=== PATIENT | female | born 1950 | race Caucasian/White ===

== ENCOUNTER → 2016-11-18 | Outpatient (CLI) | payer BC, OTHER ==
[~2016-11-18] MED LIST: ALBI1INJ2 INJ; ALBU1AER9 INH; ALPH100T PO; AMOX500C3 PO; AMR2 PO; ASPI81TA28 PO; BECL0.072 INH; BIOT1TAB5 PO; CHOL400C7 PO; CRAN450T3 PO; CZR25 PO; DICL1GEL12 TOP; DULA1INJ INJ; ESOM20CA PO; FERR1TAB13 PO; FEXO1TAB49 PO; FLUT0.15 NAE; FRS/40 PO; GLIP-197 PO; HYDR-3419 PO; IPRA0.03 NAE; IRON1CAP2 PO; L-ME1CAP3 PO; LOSA1TAB PO; LOSA1TAB38 PO; LOSA25TA18 PO; LOSA50TA6 PO; MELO7.5T5 PO; METO1TAB69 PO; METO25TA3 PO; METO50TA7 PO; MONT1TAB3 PO; MULT-240 PO; NTRGSL/4 UT; NTRTP TD; NXM/40 PO; QVRINH80 INH; RANITAB6 PO; SPR25 PO; SUCR1TAB29 PO; SYMIN160 INH
--- NOTE | 2016-11-19 12:44 | MAMMOGRAPHY REPORT ---
BILATERAL DIGITAL SCREENING MAMMOGRAM WITH CAD: 11/18/2016 CLINICAL HISTORY: Routine screening. Patient has no complaints. TECHNIQUE: Current study was also evaluated with a Computer Aided Detection (CAD) system. COMPARISON: Prior outside mammograms dated 11/11/2015 and 10/09/2014 from [facility]. BREAST COMPOSITION: There are scattered areas of fibroglandular density in both breasts. FINDINGS: No suspicious masses, calcifications, or areas of architectural distortion are noted in e ither breast. There has been no significant interval change compared to prior exams. Small 3 mm kaur ign-appearing mass in the right upper outer quadrant is stable compared to the MLO view from the 201 4 exam, and is considered benign given long-term stability. Other bilateral nodularity is stable. IMPRESSION: ACR BI-RADS CATEGORY 2: BENIGN There is no mammographic evidence of malignancy. A 1 year screening mammogram is recommended. The p atient will receive written notification of the results. Approximately 10% of breast cancers are not detected with mammography. A negative mammographic repor t should not delay biopsy if a clinically suggestive mass is present. Aretha Quezada M.D. ah/:11/18/2016 16:45:41 Prepress Proofer: Marli Cr RT(R)(M)(BD), [facility] letter sent: Normal 1/2 BI-RADS Code: ACR BI-RADS Category 2: Benign
== END | disposition home or self-care (01) ==
LOC: C.MAMM 13:20
PROVIDERS: ATTEND Family Medicine
DX: Z12.31 Encounter for screening mammogram for malignant neoplasm of breast (principal)

== ENCOUNTER → 2016-11-18 | Outpatient (CLI) | payer BC, OTHER ==
--- NOTE | 2016-11-18 14:08 | DIAGNOSTIC IMAGING REPORT ---
KUB CLINICAL HISTORY: Nephrolithiasis. FINDINGS: 2 AP abdominal radiograph are compared to study dated 11/27/2015 and correlated with abdominal CT dated 07/22/2015. There is a nonobstructed abdominal bowel gas pattern. Cholecystectomy clips are identified in the right upper quadrant. The 9 mm calculus previously seen in the interpolar left kidney is not identified. There are 2 small nonobstructing calculi in the lower pole of the left kidney measuring up to 5 mm. No right renal calculi are identified and no calcifications are seen along the course of the ureters. Numerous pelvic phleboliths are identified. The skeletal structures are osteopenic. There is mild lumbosacral spondylosis. The bony pelvis appears intact. IMPRESSION: 1. The largest 9 mm calculus previously seen projecting over the left kidney is no longer identified. 2. Small nonobstructing left calculi are similar previous. 3. No right renal calculi are identified. Electronically signed by: Miguelangel Sargent M.D. 11/18/2016 2:06 PM Dictated Date/Time: 11/18/2016 2:04 PM
== END | disposition home or self-care (01) ==
LOC: C.RAD 13:47
PROVIDERS: ATTEND Urology
DX: N20.0 Calculus of kidney (principal)

== ENCOUNTER → 2016-12-09 | Outpatient (CLI) | payer BC, OTHER | END | disposition home or self-care (01) | LOC: C.LABMFLN 08:56 | PROVIDERS: ATTEND Family Medicine | DX: R10.2 Pelvic and perineal pain (principal) ==

== ENCOUNTER 2016-12-21 12:02 | Inpatient (IN) | payer BC, OTHER ==
[~2016-12-21] VITALS: Ht 161.3 cm; Wt 85.7 kg
[~2016-12-21 12:02] MED LIST changes: -AMOX500C3 PO; -ASPI81TA28 PO; -BIOT1TAB5 PO; -CZR25 PO; -DICL1GEL12 TOP; -DULA1INJ INJ; -ESOM20CA PO; -FERR1TAB13 PO; -FEXO1TAB49 PO; -FLUT0.15 NAE; -GLIP-197 PO; -HYDR-3419 PO; -IPRA0.03 NAE; -LOSA1TAB38 PO; -LOSA25TA18 PO; -LOSA50TA6 PO; -MELO7.5T5 PO; -METO1TAB69 PO; -METO50TA7 PO; -NTRGSL/4 UT; -NTRTP TD; -QVRINH80 INH; -SUCR1TAB29 PO; -SYMIN160 INH
[2016-12-21] MEDS ORDERED: AMOX500C3 PO (12:30)
[2016-12-21] MEDS ORDERED: SUCR1TAB29 PO (12:30)
[2016-12-21] MEDS ORDERED: FLUT0.15 NAE (12:30)
[2016-12-21] MEDS ORDERED: ASPI81TA28 PO (12:39)
[2016-12-21] MEDS ORDERED: FEXO1TAB49 PO (12:39)
[2016-12-21] MEDS ORDERED: LOSA25TA18 PO (12:39)
[2016-12-21] MEDS ORDERED: DICL1GEL12 TOP (12:39)
[2016-12-21] MEDS ORDERED: MELO7.5T5 PO (12:39)
[2016-12-21] MEDS ORDERED: HYDR-3419 PO (12:39)
[2016-12-21] MEDS ORDERED: FERR1TAB13 PO (12:39)
[2016-12-21] MEDS ORDERED: ASPIRIN 81 MG CHEW PO STA (13:11)
--- NOTE | 2016-12-21 13:17 | EMERGENCY ROOM VISIT NOTE ---
History Report prepared by Fab: Ruth Linder Under the Supervision of: Dr. Caitlyn Hughes M.D. First contact with patient: 13:04 Chief Complaint: CHEST PAIN Stated Complaint: CHF, CHEST DISCOMFORT, HIGH BLOOD PRESSURE History of Present Illness The patient is a 66 year old female who presents to the Emergency Room with complaints of persistent chest discomfort, which she describes as heaviness, that began this morning. Her current discomfort is a 3-4/10 in severity, which she notes is slightly improved from earlier today. The pain radiates through her back. It does not radiate through her jaw or arm. She notes that she takes her blood pressure daily and it was high compared to baseline. She also complains of generalized weakness and room-spinning dizziness. Currently, she is not feeling dizzy. She has a history of congestive heart failure and follows with Dr. Reilly. She goes to cardiac rehabilitation. She does not have a history of heart attack. Today, she called her PCP and glass grinder who recommended that she come to the ER. Denies recent weight gain, increased leg swelling, nausea, or other complaints. She notes that she recently got over cold -like symptoms. She takes a baby aspirin daily. She did take the aspirin this morning. She has a history of a DVT years ago. Denies recent long trips. Source of History: patient Position: chest Symptom Intensity: 3-4/10 Quality: other (heaviness) Timing: other (persistent) Associated Symptoms: + weakness, No nausea Note: Other symptoms: room-spinning dizziness Review of Systems See HPI for pertinent positives & negatives. A total of 10 systems reviewed and were otherwise negative. Past Medical & Surgical Medical Problems: (1) CHF (congestive heart failure) (2) DVT (deep venous thrombosis) (3) Hyperlipidemia (4) Unstable angina Family History Diabetes mellitus Heart disease Social History Smoking Status: Never Smoker Current/Historical Medications Scheduled Alpha-Lipoic Acid (Thioctic Ac (Alpha-Lipoic Acid), 100 MG PO DAILY Aspirin (Aspirin Ec), 81 MG PO DAILY Beclomethasone Dipropionate (Qvar), 1 PUFF INH BID Cholecalciferol (Vitamin D 400 Iu), 400 INTER.UNIT PO DAILY Cranberry (Vaccinium Macrocarp (Azo-Cranberry), 1 TAB PO QAM Diclofenac Sodium (Topical) (Voltaren 1% Top Gel), 2 GM TOP QID Esomeprazole Magnesium (Nexium), 40 MG PO DAILY Fexofenadine Hcl (Alida Allergy), 1 TAB PO DAILY Fluticasone Propionate (Nasal) (Flonase Allergy Relief), 2 SPRAYS HAIDER DAILY Furosemide (Lasix), 40 MG PO QAM Glimepiride (Glimepiride), 4 MG PO BID Losartan Potassium (Losartan Potassium), 37.5 MG PO HS Meloxicam (Mobic), 7.5 MG PO DAILY Metoprolol Succinate (Toprol Xl), 25 MG PO QAM Montelukast Sodium (Singulair), 10 MG PO DAILY Multiple Vitamins W/ Minerals (Womens One Daily), 1 TAB PO DAILY Nitroglycerin (Nitroglycerin Transdermal), 1 PATCH TD QAM Spironolactone (Spironolactone), 25 MG PO QAM Sucralfate (Carafate), 1 GM PO QID Scheduled PRN Albuterol Sulfate (Proair Hfa), 2 PUFFS INH Q4H PRN for SOB/Wheezing Beclomethasone Dip (Qvar), 40 MCG INH BID PRN for Wheezing Hydrocodon/Acetaminophen 5MG/300MG (Vicodin (5MG/300MG)), 1 TAB PO Q4H PRN for Pain Allergies Coded Allergies: Tomato (Verified Allergy, Severe, TONGUE SWELLS, 12/21/16) Latex (Verified Allergy, Intermediate, RASH OVER CONTACT SITE, 12/21/16) Milk (Verified Allergy, Intermediate, FULL BODY HIVES, 12/21/16) Naproxen (Verified Allergy, Intermediate, EYELITS SWOLLEN/REDDENED/ BURNING FEELING, 12/21/16) Soy Allergy (Verified Allergy, Intermediate, FACE AND CHEST RED, 12/21/16) Wheat (Verified Allergy, Intermediate, TONGUE SWELLS, GLUTEN ALLERGY, 12/21) GLUTEN ALLERGY Phenazopyridine (Verified Allergy, Mild, INCREASED HEART RATE, N/V, ) PHENAZOPYRIDINE PLUS TABLETS Ibuprofen (Verified Allergy, Unknown, EYELIDS SWELLED AND BURNING FEELING , 12/21/16) Lansoprazole (Verified Allergy, Unknown, UNK, 12/21/16) Proton Pump Inhibitors (Unverified Allergy, Unknown, unkown, 12/21/16) Iodinated Contrast Media (Verified Adverse Reaction, Intermediate, FLUSHED , INCREASED HEART RATE, 12/21/16) Oxycodone (Verified Adverse Reaction, Intermediate, N/V, 12/21/16) Sulfamethoxazole w/Trimethoprim (Verified Adverse Reaction, Intermediate, "DEATHLY ILL" SEVERE N/V, 12/21/16) NSAIDs (Verified Adverse Reaction, Mild, GI UPSET, 12/21/16) Tramadol (Verified Adverse Reaction, Mild, N/V, 12/21/16) Corticosteroids (Verified Adverse Reaction, Unknown, FLUSHED, INCREASED HEART RATE, 12/21/16) Physical Exam Vital Signs Date Time Temp Pulse Resp B/P Pulse Ox O2 Delivery O2 Flow Rate FiO2 12/21/16 18:10 65 20 158/91 Room Air 12/21/16 17:30 66 168/92 12/21/16 16:33 61 18 156/83 94 Room Air 12/21/16 16:31 64 12/21/16 15:21 63 16 135/75 96 Room Air 12/21/16 14:15 64 22 155/92 12/21/16 14:00 67 20 137/81 12/21/16 13:45 80 19 148/87 12/21/16 13:36 150/92 12/21/16 13:30 64 18 174/82 96 12/21/16 13:25 71 18 166/101 96 Room Air 12/21/16 12:34 81 12/21/16 12:34 Room Air 12/21/16 12:12 36.3 72 16 182/98 98 Room Air Physical Exam Vital signs reviewed. General: Generally well-appearing 66 year old female, in no significant distress. HEENT: No scleral icterus, PERRLA, neck supple. Atraumatic. Cardiovascular: Regular rate and rhythm, no extra sounds. Pulmonary: Clear to auscultation bilaterally, normal work of breathing. Abdomen: Slightly obese, soft, nontender, nondistended, positive bowel sounds. Musculoskeletal: Atraumatic, mild edema to the bilateral lower extremities, nonpitting. Neurologic: Patient awake alert and oriented x 3, full strength in all 4 extremities. Cranial nerves 2 through 12 grossly intact. Skin: Warm, dry, no rash Medical Decision & Procedures ER Provider Diagnostic Interpretation: Radiology results as stated below per my review and radiologist interpretation: CHEST ONE VIEW PORTABLE HISTORY: Atypical chest pain. COMPARISON: None. FINDINGS: The heart is mildly enlarged. No focal lung consolidations to suggest pneumonia. No evidence for pulmonary edema. No pleural effusions. No pneumothorax. IMPRESSION: Mild cardiomegaly. No evidence for pulmonary edema at this time. Electronically signed by: Todd Hinojosa M.D. 12/21/2016 2:33 PM Dictated Date/Time: 12/21/2016 2:30 PM Laboratory Results Test 12/21/16 12:50 12/21/16 13:31 D-Dimer 300 ug/L FEU (0-500) Total Bilirubin 0.3 mg/dl (0.2-1) Direct Bilirubin 0.1 mg/dl (0-0.2) Aspartate Amino Transf (AST/SGOT) 26 U/L (15-37) Alanine Aminotransferase (ALT/SGPT) 42 U/L (12-78) Alkaline Phosphatase 85 U/L (45-117) Total Protein 7.3 gm/dl (6.4-8.2) Albumin 3.4 gm/dl (3.4-5.0) Lipase 122 U/L (73-393) Hepatitis C Antibody Screen NEG (NEG) Bedside Troponin I 0.000 ng/ml (0-0.045) DW-[id number]-[id number]-Type Natriuretic Peptide 564 pg/ml (0-900) Laboratory results per my review. Medications Administered Medications (Trade) Dose Ordered Sig/Nancy Route Start Time Stop Time Status Last Admin Dose Admin Aspirin (Aspirin Chew) 243 mg NOW STAT PO 12/21/16 13:11 12/21/16 13:15 DC 12/21/16 13:32 243 MG Nitroglycerin (Nitrostat Tab) 0.4 mg Q5M PRN SL 12/21/16 13:15 12/22/16 03:54 DC 12/21/16 18:09 0.4 MG ECG Indication: chest pain Rate (beats per minute): 78 Rhythm: normal sinus Findings: LBBB, other (left atrial enlargement) Comparison ECG Date: 11/28/2015 Change: no significant change ED Course 1309: Past medical records reviewed. The patient was evaluated in room A9. A complete history and physical examination was performed. 1311: Ordered Aspirin 243 mg PO, Nitroglycerin 0.4 mg SL. 1634: Upon reevaluation, the patient is feeling better. I discussed laboratory and radiographic results with her. She verbalized agreement of the treatment plan. 1648: I discussed the case with Dr. Chasidy CHATMAN Hospitalist. The patient will be evaluated for further management. Medical Decision Chest pain: Acute coronary syndrome, pulmonary embolus, aortic dissection, musculoskeletal pain, pneumonia, pleural effusion, pneumothorax This patient was evaluated and appeared to be in no significant distress. IV access was obtained and laboratory work was drawn. The patient was placed on the alteration tailor apprentice and found to be a normal sinus rhythm. EKG reveals a left bundle branch block. Patient was given 3 baby aspirin to chew. Laboratory work reveals negative cardiac enzymes. Given the patient's multiple risk factors, she will be evaluated by the hospitalist service for further management. Patient is aware of the plan and agrees. Consults Time Called: 1644 Consulting Physician: Dr. Chasidy CHATMAN Hospitalist Returned Call: 1648 I discussed the case with him. The patient will be evaluated for further management. Impression Primary Impression: Precordial chest pain Scribe Attestation The scribe's documentation has been prepared under my direction and personally reviewed by me in its entirety. I confirm that the note above accurately reflects all work, treatment, procedures, and medical decision making performed by me. Departure Information Dispostion Being Evaluated By Hospitalist Prescriptions Beclomethasone Dip (Qvar) 80 Mcg/Act Aer 40 MCG INH BID Y for Wheezing, #1 Prov: Kemi Blas MD 12/22/16 Nitroglycerin (Nitroglycerin Transdermal) 1 Patch Tdsy 1 PATCH TD QAM for 30 Days Prov: Kemi Blas MD 12/22/16 Losartan Potassium (Losartan Potassium) 25 Mg Tab 37.5 MG PO HS, #45 TAB take 1 1/2 tabs nightly Prov: Kemi Blas MD 12/22/16 Referrals Soni Olivas (PCP) Patient Instructions My [facility]
[2016-12-21 13:20] LABS: BASO % 0.3 %; BASO ABS # 0.02 K/uL (0-0.2); COMPLETE YES; EOS % 1.2 %; HEMATOCRIT 39.3 % (37-47); IG% 0.5 %; LYMPH % 24.8 %; LYMPH ABS # 1.43 K/uL (1.2-3.4); MEAN CELL VOLUME 82.4 fL (80-100); MEAN CORPUSCULAR HEMOGLOBIN 28.7 pg (25-34); MEAN CORPUSCULAR HGB CONC 34.9 g/dl (32-36); MEAN PLATELET VOLUME 10.6 fL (7.4-10.4); MONO % 7.3 %; NEUT % 65.9 %; PLATELET COUNT 227 K/uL (130-400); RED BLOOD COUNT 4.77 M/uL (4.2-5.4); WHITE BLOOD COUNT 5.77 K/uL (4.8-10.8)
[2016-12-21 13:28] LABS: ALT/SGPT 42 U/L (12-78); BLOOD UREA NITROGEN 14 mg/dl (7-18); BUN/CREATININE RATIO 13.6 (10-20); CARBON DIOXIDE 24 mmol/L (21-32); CHLORIDE 107 mmol/L (98-107); GLUCOSE 238 mg/dl (70-99); MAGNESIUM 2.3 mg/dl (1.8-2.4); POTASSIUM 3.7 mmol/L (3.5-5.1); SODIUM 141 mmol/L (136-145)
[2016-12-21 13:31] LABS: ALKALINE PHOSPHATASE 85 U/L (45-117); AST/SGOT 26 U/L (15-37)
[2016-12-21] MEDS: NITROGLYCERIN 0.4 MG SL PER TAB CHARGE SL PRN ×3 (13:32→18:09)
--- NOTE | 2016-12-21 14:34 | DIAGNOSTIC IMAGING REPORT ---
CHEST ONE VIEW PORTABLE HISTORY: Atypical chest pain. COMPARISON: None. FINDINGS: The heart is mildly enlarged. No focal lung consolidations to suggest pneumonia. No evidence for pulmonary edema. No pleural effusions. No pneumothorax. IMPRESSION: Mild cardiomegaly. No evidence for pulmonary edema at this time. Electronically signed by: Todd Hinojosa M.D. 12/21/2016 2:33 PM Dictated Date/Time: 12/21/2016 2:30 PM
--- NOTE | 2016-12-21 18:33 | Medical Student: [facility] ---
Med Student History & Physical Date & Time of Service: Dec 21, 2016 at 18:08 Chief Complaint: Chest Pain Primary Care Physician: Soni Olivas History of Present Illness Source: patient 66 y/o female with a history of CHF presents with chest pain that began this morning around 8:30. The patient was getting ready to go to cardiac rehab when she started to get a heavy pressure in her chest that eventually started radiating to her back. She also checked her blood pressure at this time and it was elevated at 156/84. She states that her blood pressure usually runs around 110/60. The patient was also feeling weak and felt like the room was spinning. She sat down to rest and the pain persisted. Eventually, the pain became worse, 10 out of 10, and the patient decided to come to the emergency department. She was eventually given nitroglycerin, and this immediately caused the pain to subside. The patient has been recovering from a viral illness, in which she had a cough and congestion. She continues to have a cough as well as some shortness of breath. The patient states that she had a similar episode of chest pain prior to the official diagnosis of her heart failure, which was in December of 2014. She follow with Dr. Reilly for the heart failure and she states that her most recent ejection fraction was at 40%. Since being put on medications for heart failure and starting cardiac rehab, she has not had any episodes of chest pain until today. Currently, the patient is starting to get a return of some of the chest pain and her blood pressure remains elevated. Past Medical/Surgical History 1. CHF 2. DVT 3. asthma 4. diabetes 5. Seasonal allergies 6. reflux Surgical History 1. hysterectomy 2. cholecystectomy 3. appendectomy Family History Father: coronary artery disease, diabetes Mother: congestive heart failure Social History Smoking Status: Never Smoker Alcohol Use: none Marital Status: Housing status: lives with family Allergies Coded Allergies: Sulfamethoxazole w/Trimethoprim (Verified Allergy, Severe, "DEATHLY ILL" SEVERE N/V, 12/21/16) Latex (Verified Allergy, Intermediate, RASH OVER CONTACT SITE, 12/21/16) Milk (Verified Allergy, Intermediate, FULL BODY HIVES, 12/21/16) Naproxen (Verified Allergy, Intermediate, EYELITS SWOLLEN/REDDENED/ BURNING FEELING, 12/21/16) Wheat (Verified Allergy, Intermediate, TONGUE SWELLS, 12/21/16) GLUTEN ALLERGY Phenazopyridine (Verified Allergy, Mild, INCREASED HEART RATE, N/V, ) PHENAZOPYRIDINE PLUS TABLETS Corticosteroids (Verified Allergy, Unknown, FLUSHED, INCREASED HEART RATE , 12/21/16) Ibuprofen (Verified Allergy, Unknown, EYELIDS SWELLED AND BURNING FEELING , 12/21/16) Lansoprazole (Verified Allergy, Unknown, UNK, 12/21/16) Proton Pump Inhibitors (Unverified Allergy, Unknown, unkown, 12/21/16) Iodinated Contrast Media (Verified Adverse Reaction, Intermediate, FLUSHED , INCREASED HEART RATE, 12/21/16) Oxycodone (Verified Adverse Reaction, Intermediate, N/V, 12/21/16) NSAIDs (Verified Adverse Reaction, Mild, GI UPSET, 12/21/16) Tramadol (Verified Adverse Reaction, Mild, N/V, 12/21/16) Uncoded Allergies: TOMATOES (Allergy, Intermediate, TONGUE SWELLS, 12/03/13) NSAID (Allergy, Mild, RASH, 02/15/14) PHENAZOPYRIDINE PLUS TABS (Allergy, Mild, NAUSEA, 02/15/14) SOY (Allergy, Mild, FACE AND CHEST BRIGHT RED, 12/03/13) Medications Albuterol Sulfate (Proair Hfa), 2 PUFFS INH Q4H PRN for SOB/Wheezing Alpha-Lipoic Acid (Thioctic Ac (Alpha-Lipoic Acid), 100 MG PO DAILY Amoxicillin (Amoxil), 4 CAP PO UD Aspirin (Aspirin Ec), 81 MG PO DAILY Beclomethasone Dipropionate (Qvar), 1 PUFF INH BID Cholecalciferol (Vitamin D 400 Iu), 400 INTER.UNIT PO DAILY Cranberry (Vaccinium Macrocarp (Azo-Cranberry), 1 TAB PO QAM Diclofenac Sodium (Topical) (Voltaren 1% Top Gel), 2 GM TOP QID Esomeprazole Magnesium (Nexium), 40 MG PO DAILY Ferrous Sulfate (Kp Ferrous Sulfate), 1 TAB PO DAILY Fexofenadine Hcl (Alida Allergy), 1 TAB PO DAILY Fluticasone Propionate (Nasal) (Flonase Allergy Relief), 2 SPRAYS HAIDER DAILY Furosemide (Lasix), 40 MG PO QAM Glimepiride (Glimepiride), 4 MG PO BID Hydrocodon/Acetaminophen 5MG/300MG (Vicodin (5MG/300MG)), 1 TAB PO Q4H PRN for Pain Losartan Potassium (Cozaar), 25 MG PO HS Losartan Potassium (Cozaar), 12.5 MG PO HS Meloxicam (Mobic), 7.5 MG PO DAILY Metoprolol Succinate (Toprol Xl), 25 MG PO QAM Montelukast Sodium (Singulair), 10 MG PO DAILY Multiple Vitamins W/ Minerals (Womens One Daily), 1 TAB PO DAILY Spironolactone (Spironolactone), 25 MG PO QAM Sucralfate (Carafate), 1 GM PO QID Review of Systems Constitutional: + weakness, No fever, No sweats, No weight loss Eyes: No discharge, No redness, No worsening of vision ENT: No hearing loss, No nasal symptoms, No sore throat Respiratory: + cough, + shortness of breath, No hemoptysis, No wheezing Cardiovascular: + chest pain, No edema, No palpitations Abdomen: No constipation, No diarrhea, No nausea, No pain, No vomiting Musculoskeletal: No calf pain, No swelling Neurologic: No memory loss, No numbness/tingling, No paralysis Psychiatric: No anxiety, No depression symptoms Integumentary: No itch, No new/changing skin lesions, No rash Physical Exam Vital Signs (24 Hours) Date Time Temp Pulse Resp B/P Pulse Ox O2 Delivery O2 Flow Rate FiO2 12/21/16 17:30 66 168/92 12/21/16 16:33 61 18 156/83 94 Room Air 12/21/16 16:31 64 12/21/16 15:21 63 16 135/75 96 Room Air 12/21/16 14:15 64 22 155/92 12/21/16 14:00 67 20 137/81 12/21/16 13:45 80 19 148/87 12/21/16 13:36 150/92 12/21/16 13:30 64 18 174/82 96 12/21/16 13:25 71 18 166/101 96 Room Air 12/21/16 12:34 81 12/21/16 12:34 Room Air 12/21/16 12:12 36.3 72 16 182/98 98 Room Air General Appearance: WD/WN, no apparent distress Head: normocephalic, atraumatic Eyes: normal inspection, EOMI ENT: normal ENT inspection, hearing grossly normal Respiratory/Chest: chest non-tender, lungs clear, no respiratory distress, no accessory muscle use, + decreased breath sounds (at the bases) Cardiovascular: regular rate, rhythm, no edema, no murmur, + gallop/S3 Abdomen/GI: normal bowel sounds, non tender, soft Extremities/Musculoskelatal: normal inspection, no calf tenderness, no pedal edema Neurologic/Psych: alert, normal mood/affect, oriented x 3 Skin: normal color, warm/dry, no rash Diagnostics Laboratory Results Results Past 24 Hours Test 12/21/16 12:50 12/21/16 13:31 Range/Units White Blood Count 5.77 4.8-10.8 K/uL Red Blood Count 4.77 4.2-5.4 M/uL Hemoglobin 13.7 12.0-16.0 g/dL Hematocrit 39.3 37-47 % Mean Corpuscular Volume 82.4 80-100 fL Mean Corpuscular Hemoglobin 28.7 25-34 pg Mean Corpuscular Hemoglobin Concent 34.9 32-36 g/dl Platelet Count 227 130-400 K/uL Mean Platelet Volume 10.6 7.4-10.4 fL Neutrophils (%) (Auto) 65.9 % Lymphocytes (%) (Auto) 24.8 % Monocytes (%) (Auto) 7.3 % Eosinophils (%) (Auto) 1.2 % Basophils (%) (Auto) 0.3 % Neutrophils # (Auto) 3.80 1.4-6.5 K/uL Lymphocytes # (Auto) 1.43 1.2-3.4 K/uL Monocytes # (Auto) 0.42 0.11-0.59 K/uL Eosinophils # (Auto) 0.07 0-0.5 K/uL Basophils # (Auto) 0.02 0-0.2 K/uL RDW Standard Deviation 40.2 36.4-46.3 fL RDW Coefficient of Variation 13.4 11.5-14.5 % Immature Granulocyte % (Auto) 0.5 % Immature Granulocyte # (Auto) 0.03 0.00-0.02 K/uL Sodium Level 141 136-145 mmol/L Potassium Level 3.7 3.5-5.1 mmol/L Chloride Level 107 98-107 mmol/L Carbon Dioxide Level 24 21-32 mmol/L Anion Gap 10.0 3-11 mmol/L Blood Urea Nitrogen 14 7-18 mg/dl Creatinine 1.00 0.60-1.20 mg/dl Est Creatinine Clear Calc Drug Dose 58.2 ml/min Estimated GFR () 67.5 Estimated GFR (Non- 58.3 BUN/Creatinine Ratio 13.6 10-20 Random Glucose 238 70-99 mg/dl Calcium Level 9.0 8.5-10.1 mg/dl Magnesium Level 2.3 1.8-2.4 mg/dl Total Bilirubin 0.3 0.2-1 mg/dl Direct Bilirubin 0.1 0-0.2 mg/dl Aspartate Amino Transf (AST/SGOT) 26 15-37 U/L Alanine Aminotransferase (ALT/SGPT) 42 12-78 U/L Alkaline Phosphatase 85 45-117 U/L Total Creatine Kinase 43 26-192 U/L Creatine Kinase MB < 0.5 0.5-3.6 ng/ml Creatine Kinase MB Ratio 0-3.0 Total Protein 7.3 6.4-8.2 gm/dl Albumin 3.4 3.4-5.0 gm/dl Lipase 122 73-393 U/L Bedside Troponin I 0.000 0-0.045 ng/ml [id number] Natriuretic Peptide 564 0-900 pg/ml Diagnostic Radiology CXR: IMPRESSION: Mild cardiomegaly. No evidence for pulmonary edema at this time. EKG Left bundle branch block but no change when compared to previous ecg. Repeat ecg at 17:45 shows no significant change from ecg done earlier in the day Impression Assessment and Plan 66y/o female with history of CHF presenting with heavy pressure-like chest pain beginning this morning, relieved by nitroglycerin. Chest Pain- Troponins and cardiac enzymes negative to this point. ECG shows no significant change from previous ecgs. Administer ASA 81mg PO. NTG PRN for chest pain. Administer NTG 2% ointment Q6HR. Continue to monitor vital signs. Trend cardiac enzymes. Repeat ECGs. Echo ordered. Cardiology has been consulted. Morphine Sulfate as needed for pain, Zofran as needed for nausea. CHF- BNP at 564, CXR shows mild cardiomegaly. Administer Furosemide 40mg PO QAM , Losartan Potassium 37.5 mg PO HS, Metoprolol Succinate 25mg PO QAM, Spironolactone 25mg PO QAM. Cardiology has been consulted. Diabetes Mellitus- Blood sugar elevated at 238 according to initial lab value. Continue to monitor BG values. Administer Glimepiride 4mg PO BID. Asthma- Administer Beclomethasone Dipropionate 1 puff INH BID and albuterol sulfate 2 puffs inh Q4H PRN for SOB/wheezing. Reflux- Administer Nexium 40mg PO daily. Seasonal allergy- Administer Flonase Allergy Relief 2 Sprays HAIDER daily and Alida allergy 1 tab PO daily. Vitamin Supplementation- Administer Ferrous sulfate 1 tab PO daily, Cranberry 1 Tab PO QAM, Vitamin D 400 units PO daily, Multivitamin 1tab PO daily
[2016-12-21] MEDS ORDERED: ACETAMINOPHEN 325 MG TAB PO PRN (18:45)
[2016-12-21] MEDS ORDERED: BISACODYL 10 MG SUPP PR PRN (18:45)
[2016-12-21] MEDS ORDERED: ALUMINUM/MAGNESIUM/SIMETH (MAALOX MAX) 30 ML UDC PO PRN (18:45)
[2016-12-21] MEDS ORDERED: ZOLPIDEM TARTRATE 5 MG TAB PO PRN (18:45)
[2016-12-21] MEDS ORDERED: HYDROCODONE/ACETAMOPHEN 5/325MG TAB PO PRN (18:45)
[2016-12-21] MEDS ORDERED: PROMETHAZINE HCL INJ 12.5 MG in SODIUM CHLORIDE 0.9% 50ML 50 ML IV PRN (18:45)
[2016-12-21] MEDS ORDERED: NITROGLYCERIN 0.4 MG SL PER TAB CHARGE SL PRN (18:45)
[2016-12-21] MEDS ORDERED: MoRPHine SULFATE 4 MG/ML 1 ML CARP\\VIAL IV PRN (18:45)
[2016-12-21] MEDS ORDERED: MoRPHine SULFATE 2 MG/ML CARP IV PRN (18:45)
[2016-12-21] MEDS ORDERED: DEXTROSE 50% 50 ML SYR IV PRN (18:45)
[2016-12-21] MEDS ORDERED: GLUCAGON FOR INJ 1 MG VIAL SQ PRN (18:45)
[2016-12-21] MEDS ORDERED: MAGNESIUM HYDROXIDE SUSP 30 ML UDC PO PRN (18:45)
[2016-12-21] MEDS ORDERED: DiphenhydrAMINE HCL 50 MG/ML VIAL IV PRN (18:45)
[2016-12-21] MEDS ORDERED: METOPROLOL SUCC 50MG EXT REL TAB PO STA (18:45)
[2016-12-21] MEDS ORDERED: GLUCOSE 40% GEL 15 GM TUBE PO PRN (18:45)
[2016-12-21] MEDS ORDERED: LORAZEPAM 2 MG/ML 1 ML VIAL IV PRN (18:45)
[2016-12-21] MEDS ORDERED: GLUCOSE 10 TABS/TUBE PO PRN (18:45)
[2016-12-21] MEDS ORDERED: ONDANSETRON INJ 2 MG/ML 2 ML VIAL IV PRN (18:45)
[2016-12-21] MEDS ORDERED: ALBUTEROL HFA 8 GM INHALER INH PRN (18:45)
[2016-12-21] MEDS ORDERED: NITROGLYCERIN OINT 2% 1GM PACKET ONE (18:58)
[2016-12-21] MEDS ORDERED: METOPROLOL SUCC 50MG EXT REL TAB PO ONE (18:58)
[2016-12-21 20:02] VITALS: BP 132/94; PULSE 71; TEMP 36.5; O2SAT 96; Ht 161.3 cm; Wt 85.7 kg
[2016-12-21] MEDS: DOCUSATE SODIUM 100 MG CAP PO SCH ×2 (21:00→21:37)
[2016-12-21] MEDS: BECLOMETHASONE HFA 40 MCG INHALER INH SCH (21:00)
[2016-12-21] MEDS: INSULIN ASPART 100 UNITS/ML 3 ML PEN SC SCH (21:00)
[2016-12-21] MEDS ORDERED: LOSARTAN POTASSIUM 25 MG TAB PO SCH (21:00)
[2016-12-21] MEDS: MONTELUKAST SOD 10 MG TAB PO SCH ×2 (21:00→21:36)
[2016-12-21] MEDS: DICLOFENAC SOD 1% GEL 100 GM TUBE EXT SCH (21:34)
[2016-12-21] MEDS: GLIMEPIRIDE 2 MG TAB PO SCH (21:35)
[2016-12-21] MEDS: RANITIDINE HCL 150 MG TAB PO SCH (21:36)
[2016-12-21] MEDS: NITROGLYCERIN OINT 2% 1GM PACKET EXT SCH (21:38)
[2016-12-21] MEDS: SUCRALFATE 1 GM TAB PO SCH (21:52)
[2016-12-21 23:59] VITALS: BP 137/69; PULSE 63; TEMP 36.3; O2SAT 92
[2016-12-22] MEDS: NITROGLYCERIN OINT 2% 1GM PACKET EXT SCH (03:40)
--- NOTE | 2016-12-22 03:46 | History and Physical ---
History & Physical Date & Time of Service: Dec 22, 2016 at 03:35 Chief Complaint: Unstable Angina Primary Care Physician: Soni Olivas History of Present Illness Source: patient The patient is a 66-year-old female presents emergency department with complaint of severe chest heaviness with radiation through to her back, that began in the morning prior to arrival. She reports that she took her blood pressure this morning and that was higher than normal for her. She also reports generalized weakness. She has a history of congestive heart failure and follows with Shine Reilly. She goes to cardiac rehabilitation, but did not go this morning because she wasn't feeling well. She was referred to the ED today by her PCP and front desk assistant she does take a baby aspirin daily and did take it this morning. Past Medical/Surgical History Medical Problems: (1) CHF (congestive heart failure) Status: Chronic (2) DVT (deep venous thrombosis) Status: Resolved (3) Hyperlipidemia Status: Chronic Family History Diabetes mellitus Heart disease Social History Smoking Status: Never Smoker Alcohol Use: none Drug Use: none Marital Status: Housing status: lives with family Multi-Drug Resistant Organisms History of MDRO: No Allergies Coded Allergies: Tomato (Verified Allergy, Severe, TONGUE SWELLS, 12/21/16) Latex (Verified Allergy, Intermediate, RASH OVER CONTACT SITE, 12/21/16) Milk (Verified Allergy, Intermediate, FULL BODY HIVES, 12/21/16) Naproxen (Verified Allergy, Intermediate, EYELITS SWOLLEN/REDDENED/ BURNING FEELING, 12/21/16) Soy Allergy (Verified Allergy, Intermediate, FACE AND CHEST RED, 12/21/16) Wheat (Verified Allergy, Intermediate, TONGUE SWELLS, GLUTEN ALLERGY, 12/21) GLUTEN ALLERGY Phenazopyridine (Verified Allergy, Mild, INCREASED HEART RATE, N/V, ) PHENAZOPYRIDINE PLUS TABLETS Ibuprofen (Verified Allergy, Unknown, EYELIDS SWELLED AND BURNING FEELING , 12/21/16) Lansoprazole (Verified Allergy, Unknown, UNK, 12/21/16) Proton Pump Inhibitors (Unverified Allergy, Unknown, unkown, 12/21/16) Iodinated Contrast Media (Verified Adverse Reaction, Intermediate, FLUSHED , INCREASED HEART RATE, 12/21/16) Oxycodone (Verified Adverse Reaction, Intermediate, N/V, 12/21/16) Sulfamethoxazole w/Trimethoprim (Verified Adverse Reaction, Intermediate, "DEATHLY ILL" SEVERE N/V, 12/21/16) NSAIDs (Verified Adverse Reaction, Mild, GI UPSET, 12/21/16) Tramadol (Verified Adverse Reaction, Mild, N/V, 12/21/16) Corticosteroids (Verified Adverse Reaction, Unknown, FLUSHED, INCREASED HEART RATE, 12/21/16) Home Medications Scheduled Alpha-Lipoic Acid (Thioctic Ac (Alpha-Lipoic Acid), 100 MG PO DAILY Amoxicillin (Amoxil), 4 CAP PO UD Aspirin (Aspirin Ec), 81 MG PO DAILY Beclomethasone Dipropionate (Qvar), 1 PUFF INH BID Cholecalciferol (Vitamin D 400 Iu), 400 INTER.UNIT PO DAILY Cranberry (Vaccinium Macrocarp (Azo-Cranberry), 1 TAB PO QAM Diclofenac Sodium (Topical) (Voltaren 1% Top Gel), 2 GM TOP QID Esomeprazole Magnesium (Nexium), 40 MG PO DAILY Ferrous Sulfate (Kp Ferrous Sulfate), 1 TAB PO DAILY Fexofenadine Hcl (Alida Allergy), 1 TAB PO DAILY Fluticasone Propionate (Nasal) (Flonase Allergy Relief), 2 SPRAYS HAIDER DAILY Furosemide (Lasix), 40 MG PO QAM Glimepiride (Glimepiride), 4 MG PO BID Losartan Potassium (Cozaar), 25 MG PO HS Losartan Potassium (Cozaar), 12.5 MG PO HS Meloxicam (Mobic), 7.5 MG PO DAILY Metoprolol Succinate (Toprol Xl), 25 MG PO QAM Montelukast Sodium (Singulair), 10 MG PO DAILY Multiple Vitamins W/ Minerals (Womens One Daily), 1 TAB PO DAILY Spironolactone (Spironolactone), 25 MG PO QAM Sucralfate (Carafate), 1 GM PO QID Scheduled PRN Albuterol Sulfate (Proair Hfa), 2 PUFFS INH Q4H PRN for SOB/Wheezing Hydrocodon/Acetaminophen 5MG/300MG (Vicodin (5MG/300MG)), 1 TAB PO Q4H PRN for Pain Review of Systems The patient denies cough, lower extremity swelling, vision change, hearing change, sore throat, fevers, chills, sweats, weight change, fatigue, nausea, vomiting, abdominal pain, pelvic pain, blood in urine or stool, dysuria, urinary frequency or urgency, headache, memory loss, rash, abnormal bruising or bleeding, imbalance, focal weakness, numbness or tingling in arms or legs, arthralgias or myalgias, back or neck pain, night sweats, or allergy symptoms. The review of systems is otherwise negative other than for that already noted above, and at least 10 systems have been reviewed. Physical Exam Vital Signs Date Time Temp Pulse Resp B/P Pulse Ox O2 Delivery O2 Flow Rate FiO2 12/21/16 23:59 92 Room Air 12/21/16 23:59 36.3 63 16 137/69 92 Room Air 12/21/16 20:02 36.5 71 18 132/94 96 Room Air 12/21/16 19:31 67 18 143/88 94 Room Air 12/21/16 19:03 80 18 176/82 96 Room Air 12/21/16 18:10 65 20 158/91 Room Air 12/21/16 17:30 66 168/92 12/21/16 16:33 61 18 156/83 94 Room Air 12/21/16 16:31 64 12/21/16 15:21 63 16 135/75 96 Room Air 12/21/16 14:15 64 22 155/92 12/21/16 14:00 67 20 137/81 12/21/16 13:45 80 19 148/87 12/21/16 13:36 150/92 12/21/16 13:30 64 18 174/82 96 12/21/16 13:25 71 18 166/101 96 Room Air 12/21/16 12:34 81 12/21/16 12:34 Room Air 12/21/16 12:12 36.3 72 16 182/98 98 Room Air The patient is awake, well-developed and adequately nourished, alert and oriented 3, normocephalic and atraumatic, lying in bed and in no acute distress. HEENT--PERRL, EOMI, mucous membranes and oropharynx moist. Neck--supple, no JVD or bruits, thyroid normal, trachea midline, no adenopathy. Heart--normal S1 and S2, no extra beats, no murmurs, rubs or gallops. Lungs--clear bilaterally, no respiratory distress, no accessory muscle use. Abdomen--normal bowel sounds and soft, nontender and nondistended, no hernias or masses, no organomegaly. Extremities--no cyanosis, clubbing or edema. There are good distal pulses b/l. Dermatologic--normal skin turgor, normal color, warm and dry, no abnormal lymph nodes, no rash. Neurologic--cranial nerves II through XII grossly intact, motor and sensory examination normal. Rheumatologic--normal range of motion, nontender, muscles and joints. Psychiatric--normal affect. Diagnostics Laboratory Results Results Past 24 Hours Test 12/21/16 12:50 12/21/16 13:31 12/21/16 19:33 12/21/16 20:53 Range/Units White Blood Count 5.77 4.8-10.8 K/uL Red Blood Count 4.77 4.2-5.4 M/uL Hemoglobin 13.7 12.0-16.0 g/dL Hematocrit 39.3 37-47 % Mean Corpuscular Volume 82.4 80-100 fL Mean Corpuscular Hemoglobin 28.7 25-34 pg Mean Corpuscular Hemoglobin Concent 34.9 32-36 g/dl Platelet Count 227 130-400 K/uL Mean Platelet Volume 10.6 7.4-10.4 fL Neutrophils (%) (Auto) 65.9 % Lymphocytes (%) (Auto) 24.8 % Monocytes (%) (Auto) 7.3 % Eosinophils (%) (Auto) 1.2 % Basophils (%) (Auto) 0.3 % Neutrophils # (Auto) 3.80 1.4-6.5 K/uL Lymphocytes # (Auto) 1.43 1.2-3.4 K/uL Monocytes # (Auto) 0.42 0.11-0.59 K/uL Eosinophils # (Auto) 0.07 0-0.5 K/uL Basophils # (Auto) 0.02 0-0.2 K/uL RDW Standard Deviation 40.2 36.4-46.3 fL RDW Coefficient of Variation 13.4 11.5-14.5 % Immature Granulocyte % (Auto) 0.5 % Immature Granulocyte # (Auto) 0.03 0.00-0.02 K/uL D-Dimer 300 0-500 ug/L FEU Sodium Level 141 136-145 mmol/L Potassium Level 3.7 3.5-5.1 mmol/L Chloride Level 107 98-107 mmol/L Carbon Dioxide Level 24 21-32 mmol/L Anion Gap 10.0 3-11 mmol/L Blood Urea Nitrogen 14 7-18 mg/dl Creatinine 1.00 0.60-1.20 mg/dl Est Creatinine Clear Calc Drug Dose 58.2 ml/min Estimated GFR () 67.5 Estimated GFR (Non- 58.3 BUN/Creatinine Ratio 13.6 10-20 Random Glucose 238 70-99 mg/dl Calcium Level 9.0 8.5-10.1 mg/dl Magnesium Level 2.3 1.8-2.4 mg/dl Total Bilirubin 0.3 0.2-1 mg/dl Direct Bilirubin 0.1 0-0.2 mg/dl Aspartate Amino Transf (AST/SGOT) 26 15-37 U/L Alanine Aminotransferase (ALT/SGPT) 42 12-78 U/L Alkaline Phosphatase 85 45-117 U/L Total Creatine Kinase 43 38 26-192 U/L Creatine Kinase MB < 0.5 < 0.5 0.5-3.6 ng/ml Creatine Kinase MB Ratio 0-3.0 Total Protein 7.3 6.4-8.2 gm/dl Albumin 3.4 3.4-5.0 gm/dl Lipase 122 73-393 U/L Hepatitis C Antibody Screen NEG NEG Bedside Troponin I 0.000 0-0.045 ng/ml DX-Gpd-B-Type Natriuretic Peptide 564 0-900 pg/ml Troponin I < 0.015 0-0.045 ng/ml Bedside Glucose 121 70-90 mg/dl Test 12/22/16 02:57 Range/Units Total Creatine Kinase 43 26-192 U/L Creatine Kinase MB < 0.5 0.5-3.6 ng/ml Creatine Kinase MB Ratio 0-3.0 Troponin I < 0.015 0-0.045 ng/ml Microbiology Results 12/21/16 MRSA DNA Surveillance Screen - Final, Complete Specimen Negative for MRSA by DNA Probe Diagnostic Radiology Patient Name: MICKEY RAMSEY Unit Number: [id number] Dictated: 12/21/161429 Transcribed: 12/21/161429 [facility] Printed Date/Time: [~ rep prt dt]/[~ rep prt tm] [~ rep ct labl] - [~ rep ct ivnm] [facility] [place] [address] Dictated: 12/21/161429 Transcribed: 12/21/161429 [facility] Printed Date/Time: [~ rep prt dt]/[~ rep prt tm] [~ rep ct labl] - [~ rep ct ivnm] HISTORY: Atypical chest pain. COMPARISON: None. FINDINGS: The heart is mildly enlarged. No focal lung consolidations to suggest pneumonia. No evidence for pulmonary edema. No pleural effusions. No pneumothorax. IMPRESSION: Mild cardiomegaly. No evidence for pulmonary edema at this time. Electronically signed by: Todd Hinojosa M.D. 12/21/2016 2:33 PM Dictated Date/Time: 12/21/2016 2:30 PM The status of this report is Signed. Draft = Not yet reviewed or approved by Radiologist. Signed = Reviewed and approved by Radiologist. <AttendingPhy></AttendingPhy> <FamilyPhy>Soni Olivas</FamilyPhy> < PrimaryPhy>Soni Olivas</PrimaryPhy> <UnitNumber>[id number]</ UnitNumber> <VisitNumber>[id number]</VisitNumber> <PatientName>MICKEY RAMSEY</ PatientName> <DateOfBirth>1950</DateOfBirth> <Location>[facility]</Location> < ServiceDate>12/21/16</ServiceDate> <MNE>ESINDI</MNE> <OrderingPhy>Caitlyn Hughes M.D.</OrderingPhy> <OrderingPhyMNE>f rep ord dr borja</OrderingPhyMNE> < DictatingPhyMNE>f rep dict dr borja</DictatingPhyMNE> <CCListMNE>f rep ct mne</ CCListMNE> <AdmittingPhyMNE>f pt admit dr borja</AdmittingPhyMNE> <AttendingPhyMNE >f pt attend dr borja</AttendingPhyMNE> <ConsultingPhyMNE>f pt consult dr borja</ConsultingPhyMNE> <FamilyPhyMNE>f pt fam dr borja</FamilyPhyMNE> <OtherPhyMNE>f pt other dr borja</OtherPhyMNE> < PrimaryPhyMNE>f pt prim care dr borja</PrimaryPhyMNE> <ReferringPhyMNE>f pt referring dr borja</ReferringPhyMNE> EKG EKG shows normal sinus rhythm at 78 bpm, left bundle-branch block, no acute ST- T changes Impression Assessment and Plan Precordial chest pain with radiation to the back with improvement in pain after administration of nitroglycerin--the patient will be admitted to the telemetry unit, for serial cardiac enzymes, cardiac rhythm monitoring and a 2-D echocardiogram with Dopplers. We'll consult her front desk assistant Shine Reilly. We 'll continue aspirin 81 mg by mouth daily, furosemide 40 mg by mouth every morning, losartan potassium 37.5 mg by mouth at bedtime, metoprolol succinate 25 mg by mouth every morning and spironolactone 25 mg by mouth every morning. Will add metoprolol succinate 25 mg by mouth 1 tonight , and place on Nitropaste 1 inch to the anterior chest wall every 6 hours. Diabetes mellitus--continue Clement bright 4 mg by mouth twice a day, and place on Accu-Cheks before meals and at bedtime with NovoLog coverage. GERD--change Nexium 40 mg by mouth daily to pantoprazole 40 mg by mouth daily, and continue sucralfate 1 g by mouth 4 times a day. Allergic rhinitis--continue Alida 100 mg by mouth daily, Flonase allergy relief 2 sprays each nostril daily and Singulair 10 mg by mouth daily. Level of Care Telemetry Advanced Directives Existing Advance Directive: No Existing Living Will: Yes Existing Power of Area Plant Manager: Yes Resuscitation Status FULL RESUSCITATION VTE Prophylaxis VTE Risk Assessment Done? Y/N: Yes Risk Level: Moderate Given or contraindicated: SCD's Social Service Consult None Apply
[2016-12-22 04:00] VITALS: BP 128/62; PULSE 57; TEMP 36.8; O2SAT 93
[2016-12-22 06:59] LABS: BASO % 0.5 %; BASO ABS # 0.03 K/uL (0-0.2); COMPLETE YES; EOS % 1.5 %; HEMATOCRIT 36.3 % (37-47); IG% 0.3 %; LYMPH ABS # 1.96 K/uL (1.2-3.4); MEAN CELL VOLUME 83.3 fL (80-100); MEAN CORPUSCULAR HEMOGLOBIN 28.2 pg (25-34); MEAN CORPUSCULAR HGB CONC 33.9 g/dl (32-36); MEAN PLATELET VOLUME 10.5 fL (7.4-10.4); MONO % 7.2 %; NEUT % 58.5 %; PLATELET COUNT 206 K/uL (130-400); RED BLOOD COUNT 4.36 M/uL (4.2-5.4); WHITE BLOOD COUNT 6.12 K/uL (4.8-10.8)
[2016-12-22 07:08] LABS: PROTHROMBIN TIME (PATIENT) 10.8 SECONDS (9.0-12.0)
[2016-12-22] MEDS: INSULIN ASPART 100 UNITS/ML 3 ML PEN SC SCH ×2 (07:16→11:00)
[2016-12-22 07:30] VITALS: BP 137/85; PULSE 68; TEMP 36.4; O2SAT 93
[2016-12-22 07:31] LABS: BUN/CREATININE RATIO 13.9 (10-20); CALCIUM 8.8 mg/dl (8.5-10.1); CREATININE 0.99 mg/dl (0.60-1.20); MAGNESIUM 2.1 mg/dl (1.8-2.4); POTASSIUM 3.8 mmol/L (3.5-5.1)
[2016-12-22] MEDS: BECLOMETHASONE HFA 40 MCG INHALER INH SCH (07:34)
[2016-12-22] MEDS: DICLOFENAC SOD 1% GEL 100 GM TUBE EXT SCH (07:34)
[2016-12-22] MEDS: DOCUSATE SODIUM 100 MG CAP PO SCH ×2 (07:35→09:00)
[2016-12-22] MEDS: RANITIDINE HCL 150 MG TAB PO SCH (07:35)
[2016-12-22] MEDS: FERROUS SULFATE 325 MG TAB PO SCH ×2 (07:35→09:00)
[2016-12-22] MEDS: SUCRALFATE 1 GM TAB PO SCH (07:35)
[2016-12-22] MEDS: GLIMEPIRIDE 2 MG TAB PO SCH (07:37)
--- NOTE | 2016-12-22 08:26 | Clinical Documentation Query ---
AYAN Gentile : CLINICAL DOCUMENTATION QUERY Patient is a 66 year old female admitted with precordial chest pain with radiation to back, improved with nitrates. Documented history of CHF without specificity of acuity/chronicity and/or systolic/diastolic/combined nature. Echocardiogram pending. Please clarify as clinically appropriate when able. Thank you. In your clinical opinion is this patient being managed for: ( x) Chronic systolic CHF ( ) Chronic diastolic CHF ( ) Chronic combined systolic and diastolic CHF ( ) Other explanation of clinical findings (Please Explain) ( ) Unable to determine (Please Define) ( ) Need to Discuss ( ) Not Agree The medical record reflects the following clinical findings, treatment, and risk factors. Clinical Indicators: As above Treatment: Telemetry, Lasix, Losartan, Metoprolol, Spironolactone, Nitropaste Risk Factors: Age, hypertension Please clarify and document your clinical opinion in the progress notes and discharge summary. Terms such as "probable", "suspected", "likely", "questionable", "possible", or "still to be ruled out" are acceptable. IF IN AGREEMENT, YOU MUST DOCUMENT ABOVE DIAGNOSTIC STATEMENT IN DAILY PROGRESS NOTES AND DISCHARGE SUMMARY. This document is not part of the patient's record. Thank You, Lukas Caraballo, MARIA DE JESUS [phone]
[2016-12-22] MEDS ORDERED: METOPROLOL SUCC 25MG EXT REL TAB PO SCH (09:00)
[2016-12-22] MEDS ORDERED: CEROVITE ADV FORMULA TAB PO SCH (09:00)
[2016-12-22] MEDS ORDERED: CHOLECALCIFEROL 400 INTER.UNIT TAB PO SCH (09:00)
[2016-12-22] MEDS ORDERED: FEXOFENADINE HCL 180 MG TAB PO SCH (09:00)
[2016-12-22] MEDS ORDERED: FUROSEMIDE 40 MG TAB PO SCH (09:00)
[2016-12-22] MEDS ORDERED: ALPHA LIPOIC ACID PO SCH (09:00)
[2016-12-22] MEDS ORDERED: SPIRONOLACTONE 25 MG TAB PO SCH (09:00)
[2016-12-22] MEDS ORDERED: FLUTICASONE PROPIONATE NA SPR 16 GM BTL NAE SCH (09:00)
[2016-12-22] MEDS ORDERED: ASPIRIN 81 MG ECTAB PO SCH (09:00)
[2016-12-22] MEDS ORDERED: CRANBERRY PO SCH (09:00)
[2016-12-22] MEDS ORDERED: NITROGLYCERIN 0.4 MG/HR PATCH TD ONE (09:02)
[2016-12-22 09:57] VITALS: BP 137/85; PULSE 68; TEMP 36.4; O2SAT 93
[2016-12-22] MEDS ORDERED: NTRTP TD (10:30)
[2016-12-22] MEDS ORDERED: CZR25 PO (10:30)
[2016-12-22] MEDS ORDERED: QVRINH80 INH (10:30)
--- NOTE | 2016-12-22 10:31 | Discharge Instructions ---
Discharge Instructions Admission Reason for Admission: Unstable Angina Discharge Discharge Diagnosis / Problem: chest pain Discharge Goals Goal(s): Decrease discomfort Activity Recommendations Activity Limitations: resume your previous activity . Current Hospital Diet Patient's current hospital diet: AHA Diet (Heart Healthy), Diabetes Type 2 Diet Discharge Diet Recommended Diet: AHA Diet (Heart Healthy), Low Sodium Diet (2gm Na) Pending Studies Studies pending at discharge: no Medical Emergencies . Who to Call and When: Medical Emergencies: If at any time you feel your situation is an emergency, please call 911 immediately. . Non-Emergent Contact Non-Emergency issues call your: Primary Care Provider . . "Provider Documentation" section prepared by Kemi Blas. VTE Core Measure Inpt VTE Proph given/why not?: SCD's, Treatment not indicated
--- NOTE | 2016-12-22 10:35 | Discharge Summary ---
Discharge Summary Admission Date: Dec 21, 2016 at 18:38 Discharge Date: Dec 22, 2016 Discharge Disposition: Home Principal Diagnosis: HTN urgency, chest pain Medication Reconciliation New Medications: Beclomethasone Dip (Qvar) 80 Mcg/Act Aer 40 MCG INH BID PRN for Wheezing, #1 Losartan Potassium (Losartan Potassium) 25 Mg Tab 37.5 MG PO HS, #45 TAB take 1 1/2 tabs nightly Nitroglycerin (Nitroglycerin Transdermal) 1 Patch Tdsy 1 PATCH TD QAM for 30 Days Continued Medications: Albuterol Sulfate (Proair Hfa) 108 Mcg/ Aer 2 PUFFS INH Q4H PRN for SOB/Wheezing Alpha-Lipoic Acid (Thioctic Ac (Alpha-Lipoic Acid) 100 Mg Tab 100 MG PO DAILY Aspirin (Aspirin Ec) 81 Mg Tab 81 MG PO DAILY Beclomethasone Dipropionate (Qvar) 40 Mcg/ Aer 1 PUFF INH BID Cholecalciferol (Vitamin D 400 Iu) 400 Unit Cap 400 INTER.UNIT PO DAILY, CAP Cranberry (Vaccinium Macrocarp (Azo-Cranberry) 450 Mg Tab 1 TAB PO QAM Diclofenac Sodium (Topical) (Voltaren 1% Top Gel) 1 % Gel 2 GM TOP QID Esomeprazole Magnesium (Nexium) 40 Mg Cap 40 MG PO DAILY, CAP Fexofenadine Hcl (Alida Allergy) 180 Mg Tab 1 TAB PO DAILY for allergies for 14 Days, #14 TAB 2 Refills Fluticasone Propionate (Nasal) (Flonase Allergy Relief) 50 Mcg/Act Spr 2 SPRAYS HAIDER DAILY Furosemide (Lasix) 40 Mg Tab 40 MG PO QAM, TAB Glimepiride (Glimepiride) 2 Mg Tab 4 MG PO BID Hydrocodon/Acetaminophen 5MG/300MG (Vicodin (5MG/300MG)) 1 Tab Tab 1 TAB PO Q4H PRN for Pain, TAB Meloxicam (Mobic) 7.5 Mg Tab 7.5 MG PO DAILY, TAB Metoprolol Succinate (Toprol Xl) 25 Mg Tabcr 25 MG PO QAM, #30 TAB Montelukast Sodium (Singulair) 10 Mg Tab 10 MG PO DAILY, TAB Multiple Vitamins W/ Minerals (Womens One Daily) 1 Tab Tab 1 TAB PO DAILY Spironolactone (Spironolactone) 25 Mg Tab 25 MG PO QAM Sucralfate (Carafate) 1 Gm Tab 1 GM PO QID, TAB Discontinued Medications: Amoxicillin (Amoxil) 500 Mg Cap 4 CAP PO UD, #21 CAP take four capsules by mouth one hour before procedure Ferrous Sulfate (Kp Ferrous Sulfate) 325 Mg Tab 1 TAB PO DAILY for 30 Days, #30 TAB 3 Refills Losartan Potassium (Cozaar) 25 Mg Tab 25 MG PO HS, TAB Losartan Potassium (Cozaar) 25 Mg Tab 12.5 MG PO HS, TAB Referrals At Discharge Follow up Referrals: Endocrinology Specialist Referral - Within 1-2 Weeks with Kristian Soto D.O. Hospital Course The patient is a 66-year-old female presents emergency department with complaint of severe chest heaviness with radiation through to her back, that began in the morning prior to arrival. She reports that she took her blood pressure this morning and that was higher than normal for her. She also reports generalized weakness. She has a history of congestive heart failure and follows with Shine Reilly. She goes to cardiac rehabilitation, but did not go this morning because she wasn't feeling well. She was referred to the ED today by her PCP and fast brim pouncer she does take a baby aspirin daily and did take it this morning. Patient was evaluated by cardiology and chest pain was not consistent with ACS. With her cath in 2014 with no significant findings and a recent 2de with improved ef from 30 now at 40%, patient was deemed stable for discharge with follow-up with fast brim pouncer. On her review of vitals, BP were elevated on admission. SHe was then started on nitro patch with improvement in her symptoms and BP. HEr bp meds were also changed for better BP control. Last Vital Signs Documentation Date Time Temp Pulse Resp B/P Pulse Ox O2 Delivery O2 Flow Rate FiO2 12/22/16 09:57 36.4 68 17 93 Room Air 12/22/16 07:30 137/85 NAD, AOx3, coherent and fluent speech EOMI, PERRL, anicteric S1 S2 RRR, no m/r/g CTAB no w/r/r Abd soft, obese, nt/nd +BS no suprapubic tend no LE edema CN 2-12 grossly intact 1. Chest pain - atypical - likely from elevated BP - would cont on increase dose of lisinopril - cont nitro patch 0.4 - and cont toprol 25mg daily 2. Non-ischemic cardiomyopathy - chronic systolic CHF - improved based on last 2de - cont asa, statin, toprol, losartan, nitro, spironolactone 3. dyslipidemia - statin FOllow-up with fast brim pouncer. Total Time Spent: Less than 30 minutes This includes examination of the patient, discharge planning, medication reconciliation, and communication with other providers. Discharge Instructions Please refer to the electronic Patient Visit Report (Discharge Instructions) for additional information. Additional Copies To Kristian Soto D.O.
--- NOTE | 2016-12-22 10:58 | CARDIOLOGY CONSULTATION ---
DATE OF CONSULTATION: 12/22/2016 HISTORY OF PRESENT ILLNESS: Zahida Hansen is a 66-year-old female seen in cardiology consultation per the request of Dr. Umaña for the evaluation of chest discomfort. The patient typically follows with Shine Reilly PA-C of our practice with last outpatient visit on 10/15/2016. She carries a history of idiopathic cardiomyopathy with left bundle-branch block and moderate mitral regurgitation. Echocardiogram dating back to 2013 revealed moderate LV systolic dysfunction with an ejection fraction of 33%. She went on to have diagnostic cardiac catheterization on 12/11/2014 at [facility] and she was found to have angiographically normal coronary arteries. Her systemic blood pressure was noted to be high at that point and her left ventricular end-diastolic pressure was also elevated at 42 mmHg. She has been treated appropriately in the meantime with medication therapy. In April 2015 a MUGA scan revealed an ejection fraction that had improved to 47%. Her last outpatient transthoracic echocardiogram had been reviewed by the undersigned on 10/11/2016. The septal motion was abnormal consistent with left bundle-branch block. The remaining left ventricular wall segments were noted to be mildly hypokinetic. The left ventricular ejection fraction was mildly reduced at 40%-44%. Grade 1 diastolic dysfunction was noted. Moderate mitral regurgitation was present. Compared to the prior study dated 11/03/2015, the severity of the mitral regurgitation appears stable or perhaps improved to a subtle degree. When the patient had last been seen in October, she was doing well, and there was concern that she was perhaps a bit dehydrated. Her furosemide dose was therefore decreased from 40 mg daily 5 days per week to 20 mg by mouth daily 7 days per week. Her spironolactone was reduced from 25 mg 5 days per week to 12.5 mg daily per week. She was to continue her chronic doses of metoprolol succinate and losartan. The patient notes that she had been attending cardiac rehabilitation for cardiomyopathy regularly at the [facility]. In the new year she had a change in her insurance, and this prompted her to have to discontinue cardiac rehab for the last several weeks. Ultimately the insurance issues were worked out. She was to return to cardiac rehabilitation yesterday, however, when she woke up, she felt poorly and not herself. She noted generalized weakness. Her blood pressure was elevated on her home blood pressure cuff. Typically, her systolic blood pressure at home is between 108 and 110 mmHg and she took a reading that was 145/88. She rested, and noted that she had heaviness in her chest. She did not feel up to going to cardiac rehabilitation. This was a significant change for her as the day before she had felt very well. She had been doing laundry and had no exertional symptoms at that point. She notes having just recovered from a viral respiratory tract illness over the last 2 weeks, but had cough and nasal congestion, she had recovered from this approximately 5 days ago and was finally back to feeling herself. After speaking to her primary care provider as well as our office yesterday she presented to the Emergency Room. Her initial vital signs in 12/21/2016 at 12:12 p.m. included a blood pressure reading of 182/98. Her blood pressure remained elevated after being taken an hour later was 166/101. Because of her chest discomfort she was treated with topical nitroglycerin which she states completely palliated her symptoms. She is currently seen in the medical intensive care unit in room 102. She is actually there as a telemetry overflow, she is not an ICU level patient per her orders. A chest x-ray revealed no evidence of acute cardiopulmonary process. Her EKG tracings have revealed sinus rhythm with left bundle-branch block, unchanged compared to her previous baseline and her cardiac enzymes have been negative with a point of care troponin that was normal at 1331 yesterday and 2 subsequent laboratory draws. Her CPK and MB fraction were also negative. Her brain natriuretic peptide was 564 pg/mL suggested that she is not volume overloaded. During my interview with her, she is feeling back to herself. She had a slight headache with the topical nitroglycerin but overall feels better. PAST MEDICAL HISTORY: 1. Nonischemic cardiomyopathy with left bundle-branch block and mitral regurgitation as noted above. 2. History of deep venous thrombosis, 1988. 3. History of gastroesophageal reflux disease. 4. History of hypertension. 5. History of goiter. 6. History of pre-glaucoma. 7. Type 2 diabetes mellitus. PAST SURGICAL HISTORY: 1. Total hysterectomy in 1976. 2. Cholecystectomy in the . 3. Appendectomy in the . 4. Cardiac catheterization performed in 2014 at [facility]. FAMILY HISTORY: Mother at age 76 due to suspected myocardial infarction. Father at age 77 related to heart disease, diabetes, and dementia. SOCIAL HISTORY: The patient is , her spouse's name is Danny. They have 2 adult children. 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 She is a lifelong nonsmoker. COMPREHENSIVE REVIEW OF SYSTEMS: A 10-point review of systems was reviewed and is negative with the exceptions as those noted above. HOME MEDICATIONS: 1. Alpha-lipoic acid 100 mg by mouth daily. 2. Furosemide 20 mg by mouth daily. 3. Spironolactone 12.5 mg by mouth daily. 4. Losartan 25 mg by mouth daily. 5. Metoprolol succinate 50 mg by mouth daily. 6. Amaryl 2 mg as directed for hyperglycemia. 7. Carafate 1 gram 1 tablet by mouth 4 times per day. 8. Flonase 50 mcg 2 sprays in each nostril daily. 6. Alida 180 mg by mouth daily. 7. Singulair 10 mg by mouth daily. 8. QVAR 1 puff by mouth 2 times per day. 9. Feosol 325 mg daily. 10. Aspirin 1 tablet daily. 11. Nexium 40 mg by mouth daily. ALLERGIES: MULTIPLE ALLERGIES ARE NOTED INCLUDING 1. BACTRIM. 2. CORTICOSTEROIDS WERE NOT TOLERATED DUE TO FLUSHED FEELING, TACHYCARDIA WITH SPINE INJECTIONS. SHE HAD TOLERATED HER ORAL PREDNISONE IN THE PAST. 3. LACTOSE INTOLERANCE. 4. LANSOPRAZOLE WITH FACIAL SWELLING. 5. LATEX. 6. PERCOCET WITH NAUSEOUSNESS AND VOMITING. 7. PYRIDIUM HAS CAUSED DIAPHORESIS AND FAST HEART RATE. PHYSICAL EXAMINATION: VITAL SIGNS: Temperature 36.8, heart rate 57, blood pressure 128/62, respiratory rate 16, pulse oximetry 93%-96% on room air. GENERAL APPEARANCE: Awake and oriented x3, no acute distress. HEENT: Extraocular muscles were intact. Pupils equal and reactive to light. NECK: No bruits or cervical lymphadenopathy. CARDIOVASCULAR: Regular rate and rhythm. No murmurs, rubs or gallops. ABDOMEN: Positive bowel sounds. Soft, nontender, nondistended. EXTREMITIES: No clubbing, cyanosis or edema. NEUROLOGIC: No focal deficits. DIAGNOSTIC DATA: Cardiac enzymes as noted above. She had a negative D-dimer screen. FINAL IMPRESSION: A 66-year-old female. 1. Chest discomfort, likely due to hypertensive urgency. 2. History of nonischemic cardiomyopathy, left bundle-branch block, mild left ventricular systolic dysfunction on most recent echocardiogram as an outpatient October 2016. 3. Past coronary angiography 2014 revealing angiographically normal coronaries. RECOMMENDATIONS: The patient's EKG reveals chronic left bundle branch pattern and is nondiagnostic from evaluation for myocardial ischemia at present. The patient states she feels much better after receiving nitroglycerin and is noted on her vital signs that her blood pressure was very elevated on admission is now improved. She does not appear volume overloaded on examination and this is further supported by her relatively low BNP level. She does have a history of DVT, but her D-dimer screen was negative. At present, I think the most likely cause of her symptoms were due to her elevated blood pressure. She had previously not tolerated oral isosorbide mononitrate. She is tolerating topical nitrates well and I plan to transition her to a topical nitroglycerin patch. I do not think further ischemic workup is necessary as her cardiac enzymes are completely normal at this time and she has had negative coronary angiography in 2015. Close cardiology followup will be arranged within 1 week at [facility]. From my standpoint, if the patient is able to ambulate in the unit after having been transitioned to a nitroglycerin patch, she may be discharged from a cardiac standpoint without further cardiac testing. MIRNA
[2016-12-22] MEDS ORDERED: LOSARTAN POTASSIUM 25 MG TAB PO SCH (21:00)
[2016-12-23] MEDS ORDERED: NITROGLYCERIN 0.4 MG/HR PATCH TD SCH (09:00)
[2017-01-31] MEDS ORDERED: METO50TA7 PO (16:19)
[2017-01-31] MEDS ORDERED: NTRGSL/4 UT (16:19)
[2017-01-31] MEDS ORDERED: IPRA0.03 NAE (16:19)
[2017-01-31] MEDS ORDERED: SYMIN160 INH (16:19)
[2017-01-31] MEDS ORDERED: LOSA1TAB38 PO (16:19)
[2017-02-01] MEDS ORDERED: METO1TAB69 PO (09:23)
[2017-06-29] MEDS ORDERED: LOSA50TA6 PO (11:03)
[2017-06-29] MEDS ORDERED: BIOT1TAB5 PO (11:03)
[2017-06-29] MEDS ORDERED: DULA1INJ INJ (11:03)
[2017-06-29] MEDS ORDERED: GLIP-197 PO (11:03)
[2017-06-29] MEDS ORDERED: METO1TAB69 PO (11:03)
[2017-06-29] MEDS ORDERED: ESOM20CA PO (11:03)
[2017-08-01] MEDS ORDERED: QVRINH80 INH (07:39)
== END 2016-12-22 12:00 | disposition home or self-care (01) | DRG 305 ==
LOC: ENRESERVDT → ENRESERVTM → C.EDB 12:07 → C.MSICU 18:38
PROVIDERS: ADMIT Hospitalist; ATTEND Internal Medicine
DX: I16.0 Hypertensive urgency (principal); I42.9 Cardiomyopathy, unspecified; I50.22 Chronic systolic (congestive) heart failure; R07.89 Other chest pain; I44.7 Left bundle-branch block, unspecified; I34.0 Nonrheumatic mitral (valve) insufficiency; I11.0 Hypertensive heart disease with heart failure; E11.9 Type 2 diabetes mellitus without complications; E78.5 Hyperlipidemia, unspecified; K21.9 Gastro-esophageal reflux disease without esophagitis; J30.9 Allergic rhinitis, unspecified; Z86.718 Personal history of other venous thrombosis and embolism; Z79.1 Long term (current) use of non-steroidal anti-inflammatories (NSAID); Z79.51 Long term (current) use of inhaled steroids; Z79.82 Long term (current) use of aspirin; Z79.84 Long term (current) use of oral hypoglycemic drugs; Z79.891 Long term (current) use of opiate analgesic; Z79.899 Other long term (current) drug therapy

== ENCOUNTER → 2017-01-11 | Outpatient (CLI) | payer BC, OTHER ==
[~2017-01-11] MED LIST changes: -ALBI1INJ2 INJ; +ASPI81TA28 PO; +BIOT1TAB5 PO; +CZR25 PO; +DICL1GEL12 TOP; +DULA1INJ INJ; +ESOM20CA PO; +FEXO1TAB49 PO; +FLUT0.15 NAE; +GLIP-197 PO; +HYDR-3419 PO; +IPRA0.03 NAE; -IRON1CAP2 PO; -L-ME1CAP3 PO; -LOSA1TAB PO; +LOSA1TAB38 PO; +LOSA50TA6 PO; +MELO7.5T5 PO; +METO1TAB69 PO; +METO50TA7 PO; +NTRGSL/4 UT; +NTRTP TD; +QVRINH80 INH; -RANITAB6 PO; +SUCR1TAB29 PO; +SYMIN160 INH
[2017-01-11 13:32] LABS: ALT/SGPT 47 U/L (12-78); BLOOD UREA NITROGEN 20 mg/dl (7-18); CARBON DIOXIDE 24 mmol/L (21-32); CHLORIDE 103 mmol/L (98-107); GLUCOSE 289 mg/dl (70-99); POTASSIUM 3.7 mmol/L (3.5-5.1); SODIUM 138 mmol/L (136-145)
[2017-01-11 13:35] LABS: ALB/GLOB RATIO 0.9 (0.9-2); ALKALINE PHOSPHATASE 94 U/L (45-117); AST/SGOT 29 U/L (15-37)
[2017-01-11 13:42] LABS: ESTIMATED AVERAGE GLUCOSE 171 mg/dl; HA1C FLAG Normal (Normal)
== END | disposition home or self-care (01) ==
LOC: C.LABMFLN 09:33
PROVIDERS: ATTEND Family Medicine
DX: I50.22 Chronic systolic (congestive) heart failure (principal)

== ENCOUNTER → 2017-01-21 | Outpatient (CLI) | payer BC, OTHER ==
[~2017-01-21] MED LIST changes: +REGADENOSON 0.4 MG/5 ML SYR ONE
--- NOTE | 2017-01-21 17:22 | MYOCARDIAL PERFUSION SCAN ---
REQUESTING PHYSICIAN: Dr. Manish Grove. TYPE OF STUDY: ONE-DAY NUCLEAR MEDICINE TECHNETIUM-99M CARDIOLITE MYOCARDIAL PERFUSION SCAN INDICATIONS: Recent hospitalization for chest pain. EKG: Baseline EKG shows normal sinus rhythm with left bundle-branch block, ventricular rate of 73. Stress EKG with regadenoson heart rate calin from 88 to 129, reaching 84% of maximum predicted heart rate. EKG nondiagnostic with left bundle-branch block. No significant arrhythmias. TECHNIQUE: For the stress portion of the study 32.4 mCi of technetium-99m Cardiolite IV was injected at 1325 p.m. on 01/21/2017. Thirty minutes following the injection, imaging of the heart was performed in multiple projections. For the rest portion of the study 10.6 mCi of technetium-99m Cardiolite was injected IV at 11:30 a.m. One hour following the injection, imaging of the heart was performed in the same projections. FINDINGS: Raw images were reviewed in detail. There was a notable breast attenuation artifact. This was homogeneous. The rest images appeared to be more lateral on the stress images. There was gut uptake impacting the inferior imaging of border of the heart more notable on stress images than rest. No significant extracardiac pathologic uptake. The short axis, vertical long axis, and horizontal long axis images were reviewed in detail. There was no evidence of significant TID. There was a moderate sized mild perfusion defect which was primarily reversible involving the mid anterior and apical anterior and lateral segments. Summed difference score was 5. This defect spared the true apex. LV size was normal with an end-diastolic volume of 86, LV function overall was normal with an EF of 53%. There was suggestion of mild hypokinesis involving the mid to apical anterior wall. IMPRESSION: 1. Moderate, mild, reversible perfusion defect involving the mid to apical anterior wall as well as the apical lateral wall. This is potentially consistent with diagonal distribution ischemia versus possible breast attenuation artifact. 2. Normal LV size and function with an ejection fraction of 53%. There is a suggestion of mild mid to apical anterior wall hypokinesis. 3. Nondiagnostic regadenoson EKG with baseline left bundle-branch block. Of note, patient had significant chest pain with regadenoson infusion. MTDD
== END | disposition home or self-care (01) ==
LOC: C.NUCL 11:00
PROVIDERS: ATTEND Internal Medicine Interventional Cardiology
DX: I44.7 Left bundle-branch block, unspecified (principal); R07.9 Chest pain, unspecified

== ENCOUNTER → 2017-01-27 | Outpatient (CLI) | payer BC, OTHER ==
[~2017-01-27] MED LIST changes: -REGADENOSON 0.4 MG/5 ML SYR ONE
[2017-01-27 17:50] LABS: MEAN CELL VOLUME 85.5 fL (80-100); MEAN CORPUSCULAR HEMOGLOBIN 28.3 pg (25-34); MEAN CORPUSCULAR HGB CONC 33.1 g/dl (32-36); MEAN PLATELET VOLUME 11.5 fL (7.4-10.4); PLATELET COUNT 233 K/uL (130-400); RED BLOOD COUNT 4.91 M/uL (4.2-5.4); WHITE BLOOD COUNT 7.16 K/uL (4.8-10.8)
[2017-01-27 17:53] LABS: URINE APPEARANCE CLEAR (CLEAR); URINE BILIRUBIN NEG (NEG); URINE COLOR YELLOW; URINE EPITHELIAL CELL AUTO 20-30 /lpf (0-5); URINE NITRITE NEG (NEG); URINE SPECIFIC GRAVITY 1.009 (1.000-1.030); UROBILINOGEN NEG (NEG); ZZURINE CULT IF INDIC CATH NO
[2017-01-27 17:56] LABS: MANUAL MICROSCOPIC REQUIRED? NO; REVIEW REQ? NO
[2017-01-27 17:57] LABS: PROTHROMBIN TIME (PATIENT) 10.4 SECONDS (9.0-12.0)
[2017-01-27 17:58] LABS: BLOOD UREA NITROGEN 20 mg/dl (7-18); BUN/CREATININE RATIO 17.7 (10-20); CALCIUM 8.7 mg/dl (8.5-10.1); CARBON DIOXIDE 28 mmol/L (21-32); CHLORIDE 105 mmol/L (98-107); GLUCOSE 193 mg/dl (70-99); POTASSIUM 3.6 mmol/L (3.5-5.1); SODIUM 140 mmol/L (136-145)
== END | disposition home or self-care (01) ==
LOC: C.LABMFLN 10:18
PROVIDERS: ATTEND Family Medicine
DX: R35.0 Frequency of micturition (principal); Z01.818 Encounter for other preprocedural examination

== ENCOUNTER → 2017-02-01 | Day surgery (SDC) | payer BC, OTHER ==
[~2017-02-01] VITALS: Ht 160 cm; Wt 87.0 kg
[~2017-02-01] MED LIST changes: -CZR25 PO; +FENTANYL CITRATE INJ 50 MCG/1 ML 2 ML VIAL ONE; +HEPARIN SOD (PORCINE) 1000 UNIT/ML 10 ML VIAL ONE; -HYDR-3419 PO; -MELO7.5T5 PO; +METO100T44 PO; -METO1TAB69 PO; -METO25TA3 PO; +MIDAZOLAM HCL 1 MG/ML 2ML VIAL ONE; -MULT-240 PO; +NITROGLYCERIN/D5W 100MCG/ML 20ML SYR ONE; +NiCARDipine HCL INJ 2.5 MG/ML 10 ML AMP ONE
[2017-02-01 07:15] VITALS: BP 170/85; PULSE 90; TEMP 36.5; O2SAT 95; Ht 160 cm; Wt 87.0 kg
--- NOTE | 2017-02-01 09:10 | Procedure Note ---
Pre-Mod Sedation Assessment General Date of Moderate Sedation: Feb 01, 2017. Vital Signs: Vital Signs Past 12 Hours Date Time Temp Pulse Resp B/P Pulse Ox O2 Delivery O2 Flow Rate FiO2 02/01/17 09:02 87 20 156/86 94 Room Air 02/01/17 07:15 36.5 90 20 170/85 95 Room Air Review Cardiovascular: regular rate, rhythm, no edema Abdomen: normal bowel sounds, non tender Lungs: chest non-tender, lungs clear Pre-Sedation Airway Assessment Oral Cavity: WNL Able to Visualize Vocal Cords: No Short Thick Neck: No Hx of Sleep Apnea: No Smoking Status: Never Smoker Mallampati Classification: Class III ASA Classification: Class II Procedure Planning Contraindications-for Mod Sed: None Yes Notes The planned sedation has been discussed with the patient and consent obtained. I have identified the patient, determined the appropriateness of sedation and have assessed the patient immediately prior to the procedure. All medicine(s) and interventions are by my order.
--- NOTE | 2017-02-01 09:11 | Procedure Note ---
Post-Mod Sedation Assessment General Date of Moderate Sedation Feb 01, 2017. Vital Signs: Vital Signs Past 12 Hours Date Time Temp Pulse Resp B/P Pulse Ox O2 Delivery O2 Flow Rate FiO2 02/01/17 09:02 87 20 156/86 94 Room Air 02/01/17 07:15 36.5 90 20 170/85 95 Room Air Review - Discharge Criteria Vital Signs Stable: Yes Alert/Oriented/Conversant: Yes Returned to Baseline Mental St: Yes Nausea Absent/Minimal: Yes Pain/Discomfort/Absent/Minimal: Yes Normal/Baseline Respirations: Yes Active Bleeding?: No Pt Received D/C Instructions: Yes Prescriptions Given: None Specific Proced. D/C Criteria Distal Pulses Present (Cardiac: Yes Groin site assessed-Card Cath: N/A Voided Prior To Discharge: N/A Discharged Patients Adult Escort/Transportation: Yes
--- NOTE | 2017-02-01 09:11 | History & Physical Bridge Note ---
H&P Re-Evaluation Bridge Note: I have examined the patient, reviewed the History & Physical and in the interval since the performance of the History & Physical I have noted the following changes of clinical significance: No changes noted
--- NOTE | 2017-02-01 09:27 | Discharge Instructions ---
Discharge Instructions Procedure Procedure Date: Feb 01, 2017. Reason for Visit: Abdnormal Nm Test. Discharge Discharge Date: Feb 01, 2017. Discharge Diagnosis: Hypertensive heart disease Last Recorded Wt (Kilograms): 87 Anesthesia Post Anesthesia Instructions: If you have had IV Sedation: * Do not drive today. * Resume driving when surgeon permits. * Do not make important decisions or sign legal documents today. * Call surgeon for: 1. Temperature elevations greater than 101 degrees F. 2. Uncontrollable pain. 3. Excessive bleeding. 4. Persistent nausea and vomiting. 5. Medication intolerance (nausea, vomiting or rash). * For nausea and vomiting use only clear liquids such as: tea, soda, bouillon until nausea subsides, then gradually increase diet as tolerated. * If you have any concerns or questions, call your surgeon's office. If physician is unavailable and it is an emergency, call 911 or go to the nearest emergency room. Instructions Activity Recommendations: limitations as noted below Recommended Home Diet: resume previous diet Allergies: Coded Allergies: Tomato (Verified Allergy, Severe, TONGUE SWELLS, 12/21/16) Latex (Verified Allergy, Intermediate, RASH OVER CONTACT SITE, 12/21/16) Milk (Verified Allergy, Intermediate, FULL BODY HIVES, 12/21/16) Naproxen (Verified Allergy, Intermediate, EYELITS SWOLLEN/REDDENED/ BURNING FEELING, 12/21/16) Soy Allergy (Verified Allergy, Intermediate, FACE AND CHEST RED, 12/21/16) Wheat (Verified Allergy, Intermediate, TONGUE SWELLS, GLUTEN ALLERGY, 12/21) GLUTEN ALLERGY Phenazopyridine (Verified Allergy, Mild, INCREASED HEART RATE, N/V, ) PHENAZOPYRIDINE PLUS TABLETS Ibuprofen (Verified Allergy, Unknown, EYELIDS SWELLED AND BURNING FEELING , 12/21/16) Lansoprazole (Verified Allergy, Unknown, UNK, 12/21/16) Proton Pump Inhibitors (Verified Allergy, Unknown, unkown, 02/01/17) Iodinated Contrast Media (Verified Adverse Reaction, Intermediate, FLUSHED , INCREASED HEART RATE, 12/21/16) Oxycodone (Verified Adverse Reaction, Intermediate, N/V, 12/21/16) Sulfamethoxazole w/Trimethoprim (Verified Adverse Reaction, Intermediate, "DEATHLY ILL" SEVERE N/V, 12/21/16) NSAIDs (Verified Adverse Reaction, Mild, GI UPSET, 12/21/16) Tramadol (Verified Adverse Reaction, Mild, N/V, 12/21/16) Corticosteroids (Verified Adverse Reaction, Unknown, FLUSHED, INCREASED HEART RATE, 12/21/16) Follow Up Additional Instructions: ACTIVITY RECOMMENDATIONS: It is common to feel weak and fatigue for a few days. * Do not drive or operate any motorized equipment for the next 2 days. * Limit stair usage (2 or 3 trips a day only) for the next 2 days. * Do not lift anything heavier than 10 pounds for the next three days. * Do not engage in vigorous exercise or any sports for the next five days. * You may shower the day after your procedure, but do not immerse the area for three days. Cleanse the site gently with soap and water. SPECIAL CARE INSTRUCTIONS: * You may replace the pressure dressing or band-aid the morning after the procedure. * After your procedure, it is normal to have a small bruise or small lump at the site. Examine your site daily for any change in the bruise or lump, redness, swelling, drainage or numbness. Notify your doctor if any change. BLEEDING: * If there is a small amount of bleeding at the site, lie down and apply firm pressure with a clean cloth for ten minutes. When the bleeding stops, lie quietly keeping the procedure limb straight for six hours. Notify your doctor as soon as possible. * If the bleeding does not stop after ten minutes or if there is a large amount of bleeding or spurting, call 911 immediately. Continue to lie down and hold firm pressure until help arrives. SKIN IRRITATION: * You may experience some redness and/or swelling in the area where radiation was administered. If any skin irritation occurs, please contact your family physician. FOLLOW UP VISIT: Keep any scheduled doctor appointments. Follow-up with: Scheduled follow-up with Cardiology clinic on 02/23/2017 Carley Kingston Recommendations: Call your doctor if: * Temperature above 101 degrees * Pain not relieved by pain medicine ordered * There is increased drainage or redness from any incision * You have any unanswered questions or concerns. Your Doctors Instructions noted above were prepared by provider Jordan Grove. Patient Signature Section: Patient Instructions Signature Page Zahida Hansen Patient (or Guardian) Signature/Date: I have read and understand the instructions given to me by my caregivers. Caregiver/RN/Doctor Signature/Date: The above-named patient and/or guardian has received patient instructions on this date. + Original Patient Signature Page (only) stays with chart. Please make copy for patient.
[2017-02-01 11:30] VITALS: BP 153/76; PULSE 77; O2SAT 94
--- NOTE | 2017-02-11 12:13 | Cardiac Catheterization ---
Procedure Note Procedure Date Feb 01, 2017. Pre-Procedure Diagnosis Positive Stress Test AUC Score 7 Post-Procedure Diagnosis Normal Coronary Arteries Procedure(s) Performed Coronary Angiography, Left Heart Cath Home Aide Dr. Grove Spray Machine Operator(s) Glunt Estimated Blood Loss 10 Medication(s) Fentanyl, Heparin, Nitroglycerin, Versed, Lidocaine 1% Summary of Findings Indication: Positive Stress Test/Recent NSTEMI Access: 6Fr Slender Right Radial Artery Catheters: Dimas Findings: LM - Angiographically normal LAD - Luminal irregularities Circumflex - Angiographically normal RCA - Dominant, Angiographically normal Arterial Closure: TR Band PCI: Equipment: [] Antithrombotic therapy: [] Procedure: [] Summary: 1. Essentially normal coronary arteries. 2. Normal intracardiac filling pressures. Recommendations: Continue current cardiac regimen and ASCVD risk factor modification. Stop nitroglycerin patch and increase antihypertensive regimen as needed. Hemodynamics Rest Ao: 155/76/111 Final Ao: -- LV: 156/11 Recommendations Medical therapy and/or Counseling Specimens None Radiation Exposure (mGy) 205 Contrast (mls) 50 Visi Drains none Anesthesia moderate Procedural Complication(s) None Disposition Gum Dipper Holding/Recovery ACC Data Cardiac Status Clinical evaluation leading to the procedure CAD Presntation: Positive Stress Test Anginal Classification: CCS III Heart Failure: No, NYHA Class: CCS I Cardiogenic Shock w/in 24Hrs: No Cardiac Arrest w/in 24Hrs: No Imaging studies past 6 months: Yes Stress studies past 6 months: Yes Standard Exercise Stress Test: No Stress Echocardiogram: No Stress Testing w/SPECT MPI: Yes - Positive, Risk/Extent of Ischemia ( Intermediate) Cardiac CTA: No Coronary Anatomy Dominant: Right Left Main (% Stenosis): Normal LAD (% Stenosis): Normal Circumflex (% Stenosis): Normal RCA (% Stenosis): Normal Diagnostic Physician's Name: Manish Grove MD Status: Elective Closure Device Percutaneous Entry Location: Radial Closure Device: Radial Band Recommendations: Medical therapy and/or Counseling Intraprocedure Events Significant Dissection: No Perforation: No
== END | disposition home or self-care (01) ==
LOC: C.CATH 06:59
PROVIDERS: ATTEND Internal Medicine Interventional Cardiology
DX: I11.0 Hypertensive heart disease with heart failure (principal); I42.9 Cardiomyopathy, unspecified; R07.9 Chest pain, unspecified; I50.22 Chronic systolic (congestive) heart failure; E78.5 Hyperlipidemia, unspecified; I44.7 Left bundle-branch block, unspecified; E66.9 Obesity, unspecified; K21.9 Gastro-esophageal reflux disease without esophagitis; J45.909 Unspecified asthma, uncomplicated; E11.9 Type 2 diabetes mellitus without complications; I34.0 Nonrheumatic mitral (valve) insufficiency; Z82.49 Family history of ischemic heart disease and other diseases of the circulatory system; Z83.3 Family history of diabetes mellitus; Z85.118 Personal history of other malignant neoplasm of bronchus and lung

== ENCOUNTER → 2017-02-03 | Outpatient (CLI) | payer BC, OTHER ==
[~2017-02-03] MED LIST changes: -FENTANYL CITRATE INJ 50 MCG/1 ML 2 ML VIAL ONE; -HEPARIN SOD (PORCINE) 1000 UNIT/ML 10 ML VIAL ONE; -METO50TA7 PO; -MIDAZOLAM HCL 1 MG/ML 2ML VIAL ONE; -NITROGLYCERIN/D5W 100MCG/ML 20ML SYR ONE; -NTRTP TD; -NiCARDipine HCL INJ 2.5 MG/ML 10 ML AMP ONE
[2017-02-03 13:37] LABS: BLOOD UREA NITROGEN 21 mg/dl (7-18); BUN/CREATININE RATIO 18.8 (10-20); CALCIUM 8.9 mg/dl (8.5-10.1); CARBON DIOXIDE 26 mmol/L (21-32); CHLORIDE 104 mmol/L (98-107); GLUCOSE 302 mg/dl (70-99); POTASSIUM 3.5 mmol/L (3.5-5.1); SODIUM 138 mmol/L (136-145)
--- NOTE | 2017-02-09 11:56 | CODING QUERY NO DIAGNOSIS ---
TREATMENT RENDERED WITHOUT A DIAGNOSIS Dr. Grove, To promote full compliance with coding requirements relating to patient care, physician participation is requested in all cases of team physician uncertainty. Please assist us with providing a diagnosis/symptom for the test(s) below: A diagnosis/symptom was not documented on your Order. A valid diagnosis/symptom is required to bill all insurances. Please remember that we are unable to code a diagnosis of rule out, probable, possible, questionable, or suspected. Tests that require a diagnosis: * BETA-HYDROXYBUTYRATE, QUANT DIAGNOSIS: * BASIC METABOLIC PROFILE DIAGNOSIS: DATE OF SERVICE: 02/03/17 Provider Signature: Date: Thank you Andreas Teixeira [facility] Information Management Once completed, please kindly fax back to [phone] For questions please call [phone]
== END | disposition home or self-care (01) ==
LOC: C.LABMFLN 13:54
PROVIDERS: ATTEND Internal Medicine Interventional Cardiology
DX: Z01.818 Encounter for other preprocedural examination (principal); I50.22 Chronic systolic (congestive) heart failure; E11.9 Type 2 diabetes mellitus without complications

== ENCOUNTER → 2017-04-22 | Outpatient (CLI) | payer BC, OTHER ==
[2017-04-22 13:18] LABS: BASO % 0.4 %; BASO ABS # 0.02 K/uL (0-0.2); COMPLETE YES; EOS % 1.1 %; HEMATOCRIT 40.7 % (37-47); IG% 0.4 %; LYMPH ABS # 1.23 K/uL (1.2-3.4); MEAN CELL VOLUME 84.6 fL (80-100); MEAN CORPUSCULAR HEMOGLOBIN 27.9 pg (25-34); MEAN CORPUSCULAR HGB CONC 32.9 g/dl (32-36); MEAN PLATELET VOLUME 11.2 fL (7.4-10.4); NEUT % 69.1 %; PLATELET COUNT 227 K/uL (130-400); RED BLOOD COUNT 4.81 M/uL (4.2-5.4); WHITE BLOOD COUNT 5.59 K/uL (4.8-10.8)
[2017-04-22 13:42] LABS: ALB/GLOB RATIO 0.9 (0.9-2); ALKALINE PHOSPHATASE 101 U/L (45-117); ALT/SGPT 45 U/L (12-78); AST/SGOT 25 U/L (15-37); BLOOD UREA NITROGEN 21 mg/dl (7-18); BUN/CREATININE RATIO 19.1 (10-20); CARBON DIOXIDE 25 mmol/L (21-32); CHLORIDE 102 mmol/L (98-107); GLUCOSE 371 mg/dl (70-99); POTASSIUM 4.2 mmol/L (3.5-5.1); SODIUM 137 mmol/L (136-145)
[2017-04-22 14:12] LABS: BETA-HYDROXYBUTYRATE 1.55 mg/dL (0.2-2.81)
[2017-04-22 15:20] LABS: RATIO 6.5 mcg/mg (0-30.0)
[2017-04-22 18:21] LABS: CALCIUM 9.4 mg/dl (8.5-10.1)
== END | disposition home or self-care (01) ==
LOC: C.LABMFLN 09:45
PROVIDERS: ATTEND Physician Assistant
DX: K21.9 Gastro-esophageal reflux disease without esophagitis (principal); E78.5 Hyperlipidemia, unspecified; E11.9 Type 2 diabetes mellitus without complications

== ENCOUNTER → 2017-05-05 | Outpatient (CLI) | payer BC, OTHER ==
[~2017-05-05] MED LIST changes: -METO100T44 PO; +METO1TAB69 PO
[2017-05-05 13:26] LABS: CHOLESTEROL/HDL RATIO 4.9; THYROID STIMULATING HORMONE 2.17 uIu/ml (0.300-4.500)
[2017-05-05 13:43] LABS: ESTIMATED AVERAGE GLUCOSE 260 mg/dl; HA1C FLAG Normal (Normal)
== END | disposition home or self-care (01) ==
LOC: C.LABMFLN 09:05
PROVIDERS: ATTEND Physician Assistant
DX: K21.9 Gastro-esophageal reflux disease without esophagitis (principal); E78.5 Hyperlipidemia, unspecified; E11.9 Type 2 diabetes mellitus without complications

== ENCOUNTER → 2017-05-24 | Outpatient (CLI) | payer BC, OTHER | END | disposition home or self-care (01) | LOC: C.LAB1850 14:19 | PROVIDERS: ATTEND Internal Medicine Endocrinology, Diabetes & Metabolism | DX: E11.9 Type 2 diabetes mellitus without complications (principal) ==

== ENCOUNTER → 2017-07-12 | Outpatient (CLI) | payer BC, OTHER ==
[~2017-07-12] MED LIST changes: -AMR2 PO; -IPRA0.03 NAE; -LOSA1TAB38 PO; -NXM/40 PO; -SUCR1TAB29 PO
[2017-07-12 15:48] LABS: FERRITIN 90.2 ng/ml (8.0-388.0); THYROID STIMULATING HORMONE 1.67 uIu/ml (0.300-4.500)
[2017-07-13 05:57] LABS: ESTIMATED AVERAGE GLUCOSE 194 mg/dl; HA1C FLAG Normal (Normal)
== END | disposition home or self-care (01) ==
LOC: C.LAB1850 13:14
PROVIDERS: ATTEND Internal Medicine Endocrinology, Diabetes & Metabolism
DX: E11.65 Type 2 diabetes mellitus with hyperglycemia (principal); E04.1 Nontoxic single thyroid nodule; R53.83 Other fatigue

== ENCOUNTER → 2017-07-20 | Day surgery (SDC) | payer BC, OTHER ==
[2017-06-29 11:05] VITALS: Ht 162.6 cm; Wt 85.5 kg
[~2017-07-20] VITALS: Ht 162.6 cm; Wt 85.5 kg
[~2017-07-20] MED LIST changes: +500ML BSS 0.3ML EPI 1:1000PF IRRIG ONE; +ACETAMINOPHEN 325 MG TAB PO PRN; +AMVISC PLUS 0.8ML SYRINGE INT OCU ONE; +ATROPINE SULFATE 0.1 MG/ML 5ML SYR IV PRN; +BSS FLUSH ONE; +CYCLOPENTOLATE HCL 1% OP SOLN PER DROP CHARGE OPL SCH; +ENDOCOAT 0.85ML SYRINGE INT OCU ONE; +EpHEDrine SULFATE INJ 50 MG/ML AMP IV PRN; +EpINEphrine INJ 1MG/ML AMP 1 MG/ML AMP ONE; +LACTATED RINGER'S 1000ML 500 ML IV SCH; +LIDOCAINE 4% OP SOLN DROP CHARGE ONE; +LIDOCAINE 4% OP SOLN DROP CHARGE OPL SCH; +LIDOCAINE HCL 1% MPF 2 ML VIAL ONE; +MIDAZOLAM HCL 1 MG/ML 2ML VIAL ONE; +MIX: 4ML BSS 1ML EPI 1:1000 PF TOP ONE; +MOXIFLOXACIN OPH SOLN PER DROP CHARGE ONE; +MOXIFLOXACIN OPH SOLN PER DROP CHARGE OPL SCH; +ONDANSETRON INJ 2 MG/ML 2 ML VIAL IV PRN; +PHENYLEPHRINE HCL 10% OP SOLN 5 ML BTL OPL ONE; +PHENYLEPHRINE HCL 2.5% OP SOLN PER DROP CHARGE OPL SCH; +POVIDONE-IODINE OP SOLN 30 ML BTL ONE; +PROPARACAINE 0.5% OP SOLN PER DROP CHARGE OPL SCH; +PROPARACAINE HCL 0.5% OP SOLN 15 ML BTL OPL ONE; +TOBRAMYCIN/DEXAMETHASONE OPH OINT PER APPLN CHARGE ONE; +TROPICAMIDE 1% OP SOLN PER DROP CHARGE OPL SCH
[2017-07-20] MEDS: PHENYLEPHRINE HCL 10% OP SOLN PER DROP CHARGE OPL SCH ×3 (11:41→11:53)
[2017-07-20] MEDS: TROPICAMIDE 1% OP SOLN PER DROP CHARGE OPL SCH ×3 (11:42→11:54)
[2017-07-20] MEDS: CYCLOPENTOLATE HCL 1% OP SOLN PER DROP CHARGE OPL SCH ×3 (11:43→11:55)
[2017-07-20] MEDS: MOXIFLOXACIN OPH SOLN PER DROP CHARGE OPL SCH ×3 (11:44→11:56)
--- NOTE | 2017-07-20 12:47 | [facility] Post Operative Brief Note ---
Immediate Operative Summary Operative Date Jul 20, 2017. Pre-Operative Diagnosis Left eye cataract Post-Operative Diagnosis Same as preop Procedure(s) Performed Right Cataract Phacoemulsification With Intraocular Lens Implant Surgeon Dr. De La O Playroom Attendant Surgeon(s) None Estimated Blood Loss 0 mL Findings left cataract Specimens None Complication(s) None Disposition
[2017-07-20 12:49] VITALS: TEMP 36.3
--- NOTE | 2017-07-20 12:51 | [facility] Operative Report ---
Operative Report Date of Service Jul 20, 2017. Operative Report DATE OF OPERATION: 07/20/17 PREOPERATIVE DIAGNOSIS: Senile nuclear cataract and astigmatism, left eye POSTOPERATIVE DIAGNOSIS: Senile nuclear cataract and astigmatism, left eye PROCEDURE PERFORMED: Femtosecond laser-assisted phacoemulsification with intraocular lens implantation, left eye SURGEON: Dr. Armando De La O ANESTHESIA: Topical with 1% intracameral lidocaine and monitored anesthesia care COMPLICATIONS: None DESCRIPTION OF PROCEDURE: After positively identifying the patient both verbally and by wristband in the preoperative area, the left eye was marked as the operative eye. Using a sterile marker, the 3:00, 6:00, and 9:00 positions on the limbus were marked after placing a drop of proparacaine. The patient was first taken to the laser room where the femtosecond laser was used to create the capsulotomy, lens fragmentation, arcuate incisions, and main incision. The patient was then brought back to the operating room by the anesthesia and nursing staff where they were given a drop of tetracaine and betadine into the operative eye. They were then sterilely prepped and draped in the standard fashion typical for ophthalmic surgery. Steri-strips were placed along the upper eyelids to keep the lashes back, and a lid speculum was placed into the operative eye. At this point, a documented time out was performed with members of the ophthalmology, nursing, and anesthesia staffs all agreeing upon the correct patient, correct location for surgery, correct procedure, and correct type and power of intraocular lens to be implanted. The microscope was then swung into position. Then, a paracentesis wound was made using a sideport blade. Then, in sequence, 1% preservative-free lidocaine followed by Endocoat viscoelastic was injected into the anterior chamber. Next , the main incision was opened with a Bao spatula, and Utrata forceps were used to remove the capsulotomy. Hydrodissection was then performed with BSS on a flat-tip cannula. Next, the phacoemulsification handpiece was introduced into the eye and used to remove the nucleus in a [id number] fashion. This was done without complication and then the irrigation-aspiration handpiece was introduced into the eye and used to remove all remaining cortical and epinuclear material. Amvisc was then injected into the anterior chamber as well as into the capsular bag and using the lens injector system, a ZXR00 17.0 D lens, serial number [id number], and expiration date 03/2022 was injected into the capsular bag and rotated into the correct position. Next, the irrigation- aspiration handpiece was used to remove all remaining Amvisc. BSS was used to hydrate the main wound, and then BSS was injected into the paracentesis site to reach physiologic pressure and then the main wound was checked and found to be watertight. The patient was given drops of Vigamox and tobradex ointment into the operative eye, and then the surrounding area was cleaned and dried. A clear plastic shield was placed over the eye and the patient was then sat up and taken from the operating room by the anesthesia staff having tolerated the procedure well and suffering no complications. DISPOSITION: The patient was returned to the recovery room in stable condition. I attest to the content of the Intraoperative Record and any orders documented therein. Any exceptions are noted below.
--- NOTE | 2017-07-20 12:52 | Discharge Instructions-SurgCtr ---
Discharge Instructions Date of Service Jul 20, 2017. Visit Reason for Visit: Cataract Left Eye Discharge Discharge Diagnosis / Problem: left cataract Discharge Goals Goal(s): Decrease discomfort, Improve function Activity Recommendations Activity Limitations: as noted below Anesthesia . Post Anesthesia Instructions: If you have had General Anesthesia or IV Sedation: * Do not drive today. * Resume driving when surgeon permits. * Do not make important decisions or sign legal documents today. * Call surgeon for: 1. Temperature elevations greater than 101 degrees F. 2. Uncontrollable pain. 3. Excessive bleeding. 4. Persistent nausea and vomiting. 5. Medication intolerance (nausea, vomiting or rash). * For nausea and vomiting use only clear liquids such as: tea, soda, bouillon until nausea subsides, then gradually increase diet as tolerated. * If you have any concerns or questions, call your surgeon's office. If physician is unavailable and it is an emergency, call 911 or go to the nearest emergency room. . Instructions / Follow-Up Instructions / Follow-Up ACTIVITY RECOMMENDATIONS: * Light activities. * You may walk outside, read, watch television. * You may notice redness on the white part of the eye and some blurry vision - this is normal. MEDICATIONS: Resume previous medications unless instructed otherwise by your surgeon. Start all eye drops at 3 pm today: * Eye drops (today): Prednisone - one drop in operative eye every 2 hours while awake Ofloxacin - one drop in operative eye every 2 hours while awake Bromfenac - one drop in operative eye daily SPECIAL CARE INSTRUCTIONS: * Tape plastic shield over eye to sleep at night. Call your doctor at with any concerns or problems. FOLLOW UP VISIT: Follow-up with Dr De La O at [place] office as scheduled. Diet Recommendations Home Diet: no limitations Procedures Procedures Performed: Right Cataract Phacoemulsification With Intraocular Lens Implant Pending Studies Studies pending at discharge: no Medical Emergencies . Who to Call and When: Medical Emergencies: If at any time you feel your situation is an emergency, please call 911 immediately. . Non-Emergent Contact Non-Emergency issues call your: Surgeon . . "Provider Documentation" section prepared by Armando De La O. .
[2017-07-20 13:04] VITALS: BP 114/76; PULSE 80; O2SAT 96
--- NOTE | 2017-07-20 13:08 | Anesthesia Progress Nt - [facility] ---
Anesthesia Post Op Note Date & Time Jul 20, 2017 at 13:08 Vital Signs Pain Intensity: 0 Vital Signs Past 12 Hours Date Time Temp Pulse Resp B/P (MAP) Pulse Ox O2 Delivery O2 Flow Rate FiO2 07/20/17 13:04 80 16 114/76 (89) 96 Room Air 07/20/17 12:49 36.3 86 16 124/76 (92) 95 Room Air 07/20/17 12:17 76 16 141/73 96 Room Air 07/20/17 12:10 79 16 134/79 97 Room Air 07/20/17 11:30 36.7 74 16 116/76 (89) 96 Room Air Notes Mental Status: alert / awake / arousable, participated in evaluation Pt Amnestic to Procedure: Yes Nausea / Vomiting: adequately controlled Pain: adequately controlled Airway Patency, RR, SpO2: stable & adequate BP & HR: stable & adequate Hydration State: stable & adequate Anesthetic Complications: no major complications apparent
== END | disposition home or self-care (01) ==
LOC: X.SURG 10:59
PROVIDERS: ATTEND Ophthalmology
DX: H25.12 Age-related nuclear cataract, left eye (principal); E11.9 Type 2 diabetes mellitus without complications; I50.9 Heart failure, unspecified; I34.1 Nonrheumatic mitral (valve) prolapse; J45.909 Unspecified asthma, uncomplicated; Z79.82 Long term (current) use of aspirin; Z79.899 Other long term (current) drug therapy

== ENCOUNTER → 2017-08-16 | Outpatient (CLI) | payer BC, OTHER ==
[~2017-08-16] MED LIST changes: -500ML BSS 0.3ML EPI 1:1000PF IRRIG ONE; -ACETAMINOPHEN 325 MG TAB PO PRN; -ALBU1AER9 INH; -AMVISC PLUS 0.8ML SYRINGE INT OCU ONE; -ATROPINE SULFATE 0.1 MG/ML 5ML SYR IV PRN; -BECL0.072 INH; -BSS FLUSH ONE; -CYCLOPENTOLATE HCL 1% OP SOLN PER DROP CHARGE OPL SCH; -ENDOCOAT 0.85ML SYRINGE INT OCU ONE; -EpHEDrine SULFATE INJ 50 MG/ML AMP IV PRN; -EpINEphrine INJ 1MG/ML AMP 1 MG/ML AMP ONE; -LACTATED RINGER'S 1000ML 500 ML IV SCH; -LIDOCAINE 4% OP SOLN DROP CHARGE ONE; -LIDOCAINE 4% OP SOLN DROP CHARGE OPL SCH; -LIDOCAINE HCL 1% MPF 2 ML VIAL ONE; -MIDAZOLAM HCL 1 MG/ML 2ML VIAL ONE; -MIX: 4ML BSS 1ML EPI 1:1000 PF TOP ONE; -MOXIFLOXACIN OPH SOLN PER DROP CHARGE ONE; -MOXIFLOXACIN OPH SOLN PER DROP CHARGE OPL SCH; -ONDANSETRON INJ 2 MG/ML 2 ML VIAL IV PRN; -PHENYLEPHRINE HCL 10% OP SOLN 5 ML BTL OPL ONE; -PHENYLEPHRINE HCL 2.5% OP SOLN PER DROP CHARGE OPL SCH; -POVIDONE-IODINE OP SOLN 30 ML BTL ONE; -PROPARACAINE 0.5% OP SOLN PER DROP CHARGE OPL SCH; -PROPARACAINE HCL 0.5% OP SOLN 15 ML BTL OPL ONE; -TOBRAMYCIN/DEXAMETHASONE OPH OINT PER APPLN CHARGE ONE; -TROPICAMIDE 1% OP SOLN PER DROP CHARGE OPL SCH
[2017-08-16 13:08] LABS: ESTIMATED AVERAGE GLUCOSE 183 mg/dl; HA1C FLAG Normal (Normal)
[2017-08-16 13:58] LABS: ALT/SGPT 35 U/L (12-78); BLOOD UREA NITROGEN 21 mg/dl (7-18); BUN/CREATININE RATIO 18.7 (10-20); CALCIUM 9.2 mg/dl (8.5-10.1); CARBON DIOXIDE 25 mmol/L (21-32); CHLORIDE 107 mmol/L (98-107); GLUCOSE 158 mg/dl (70-99); POTASSIUM 4.1 mmol/L (3.5-5.1); SODIUM 139 mmol/L (136-145)
== END | disposition home or self-care (01) ==
LOC: C.LABMFLN 10:53
PROVIDERS: ATTEND Family Medicine
DX: E78.5 Hyperlipidemia, unspecified (principal); E11.9 Type 2 diabetes mellitus without complications; I10 Essential (primary) hypertension

== ENCOUNTER → 2017-08-17 | Day surgery (SDC) | payer BC, OTHER ==
[2017-08-01 07:40] VITALS: Ht 162.6 cm; Wt 85.5 kg
[~2017-08-17] VITALS: Ht 162.6 cm; Wt 85.5 kg
[~2017-08-17] MED LIST changes: +500ML BSS 0.3ML EPI 1:1000PF IRRIG ONE; +ACETAMINOPHEN 325 MG TAB PO PRN; +AMVISC PLUS 0.8ML SYRINGE INT OCU ONE; +ATROPINE SULFATE 0.1 MG/ML 5ML SYR IV PRN; +BSS FLUSH ONE; +ENDOCOAT 0.85ML SYRINGE INT OCU ONE; +EpHEDrine SULFATE INJ 50 MG/ML AMP IV PRN; +EpINEphrine INJ 1MG/ML AMP 1 MG/ML AMP ONE; +FENTANYL CITRATE INJ 50 MCG/1 ML 2 ML VIAL ONE; +LACTATED RINGER'S 1000ML 500 ML IV SCH; +LIDOCAINE 4% OP SOLN DROP CHARGE ONE; +LIDOCAINE 4% OP SOLN DROP CHARGE OPR SCH; +LIDOCAINE HCL 1% MPF 2 ML VIAL ONE; +MIDAZOLAM HCL 1 MG/ML 2ML VIAL ONE; +MIX: 4ML BSS 1ML EPI 1:1000 PF TOP ONE; +MOXIFLOXACIN OPH SOLN PER DROP CHARGE ONE; +ONDANSETRON INJ 2 MG/ML 2 ML VIAL IV PRN; +PHENYLEPHRINE HCL 10% OP SOLN 5 ML BTL OPR ONE; +POVIDONE-IODINE OP SOLN 30 ML BTL ONE; +PROPARACAINE 0.5% OP SOLN PER DROP CHARGE OPR SCH; +PROPARACAINE HCL 0.5% OP SOLN 15 ML BTL OPR ONE; +TOBRAMYCIN/DEXAMETHASONE OPH OINT PER APPLN CHARGE ONE
[2017-08-17] MEDS: PHENYLEPHRINE HCL 2.5% OP SOLN PER DROP CHARGE OPR SCH ×3 (10:05→10:17)
[2017-08-17] MEDS: TROPICAMIDE 1% OP SOLN PER DROP CHARGE OPR SCH ×3 (10:06→10:18)
[2017-08-17] MEDS: CYCLOPENTOLATE HCL 1% OP SOLN PER DROP CHARGE OPR SCH ×3 (10:07→10:21)
[2017-08-17] MEDS: MOXIFLOXACIN OPH SOLN PER DROP CHARGE OPR SCH ×3 (10:08→10:24)
--- NOTE | 2017-08-17 11:20 | [facility] Post Operative Brief Note ---
Immediate Operative Summary Operative Date Aug 17, 2017. Pre-Operative Diagnosis Cataract Right Eye Post-Operative Diagnosis Same Procedure(s) Performed Right Cataract Phacoemulsification With Intraocular Lens Implant; [employer] Surgeon Dr. De La O Wirer Maintenance Surgeon(s) None Estimated Blood Loss 0 mL Findings right cataract Specimens None Complication(s) None Disposition
[2017-08-17 11:21] VITALS: TEMP 36.1
--- NOTE | 2017-08-17 11:22 | [facility] Operative Report ---
Operative Report Date of Service Aug 17, 2017. Operative Report DATE OF OPERATION: 08/17/17 PREOPERATIVE DIAGNOSIS: Senile nuclear cataract and astigmatism, right eye POSTOPERATIVE DIAGNOSIS: Senile nuclear cataract and astigmatism, right eye PROCEDURE PERFORMED: Phacoemulsification with toric intraocular lens implantation, right eye SURGEON: Dr. Armando De La O ANESTHESIA: Topical with 1% intracameral lidocaine and monitored anesthesia care COMPLICATIONS: None DESCRIPTION OF PROCEDURE: After positively identifying the patient both verbally and by wristband in the preoperative area, the right eye was marked as the operative eye. Using a sterile marker, the 3:00, 6:00, and 9:00 positions on the limbus were marked after placing a drop of proparacaine. The patient was first taken to the laser room where the femtosecond laser was used to create the capsulotomy, lens fragmentation, arcuate incisions, and main incision. The patient was then brought back to the operating room by the anesthesia and nursing staff where they were given a drop of tetracaine and betadine into the operative eye. They were then sterilely prepped and draped in the standard fashion typical for ophthalmic surgery. Steri-strips were placed along the upper eyelids to keep the lashes back, and a lid speculum was placed into the operative eye. At this point, a documented time out was performed with members of the ophthalmology, nursing, and anesthesia staffs all agreeing upon the correct patient, correct location for surgery, correct procedure, and correct type and power of intraocular lens to be implanted. The microscope was then swung into position. Then, a paracentesis wound was made using a sideport blade. Then, in sequence, 1% preservative-free lidocaine followed by Endocoat viscoelastic was injected into the anterior chamber. Next , the main incision was opened with a Bao spatula, and Utrata forceps were used to remove the capsulotomy. Hydrodissection was then performed with BSS on a flat-tip cannula. Next, the phacoemulsification handpiece was introduced into the eye and used to remove the nucleus in a [id number] fashion. This was done without complication and then the irrigation-aspiration handpiece was introduced into the eye and used to remove all remaining cortical and epinuclear material. Amvisc was then injected into the anterior chamber as well as into the capsular bag and using the lens injector system, a ZXR00 19.0 D lens, serial number [id number], and expiration date 09/2021 was injected into the capsular bag and rotated into the correct position. Next, the irrigation- aspiration handpiece was used to remove all remaining Amvisc. BSS was used to hydrate the main wound, and then BSS was injected into the paracentesis site to reach physiologic pressure and then the main wound was checked and found to be watertight. The patient was given drops of Vigamox and tobradex ointment into the operative eye, and then the surrounding area was cleaned and dried. A clear plastic shield was placed over the eye and the patient was then sat up and taken from the operating room by the anesthesia staff having tolerated the procedure well and suffering no complications. DISPOSITION: The patient was returned to the recovery room in stable condition. I attest to the content of the Intraoperative Record and any orders documented therein. Any exceptions are noted below.
--- NOTE | 2017-08-17 11:23 | Discharge Instructions-SurgCtr ---
Discharge Instructions Date of Service Aug 17, 2017. Visit Reason for Visit: Cataract Right Eye Discharge Discharge Diagnosis / Problem: right cataract Discharge Goals Goal(s): Decrease discomfort, Improve function Medications Stopped Medications Name(s): Only took 3 medications this morning. Activity Recommendations Activity Limitations: as noted below Anesthesia . Post Anesthesia Instructions: If you have had General Anesthesia or IV Sedation: * Do not drive today. * Resume driving when surgeon permits. * Do not make important decisions or sign legal documents today. * Call surgeon for: 1. Temperature elevations greater than 101 degrees F. 2. Uncontrollable pain. 3. Excessive bleeding. 4. Persistent nausea and vomiting. 5. Medication intolerance (nausea, vomiting or rash). * For nausea and vomiting use only clear liquids such as: tea, soda, bouillon until nausea subsides, then gradually increase diet as tolerated. * If you have any concerns or questions, call your surgeon's office. If physician is unavailable and it is an emergency, call 911 or go to the nearest emergency room. . Instructions / Follow-Up Instructions / Follow-Up ACTIVITY RECOMMENDATIONS: * Light activities. * You may walk outside, read, watch television. * You may notice redness on the white part of the eye and some blurry vision - this is normal. MEDICATIONS: Resume previous medications unless instructed otherwise by your surgeon. Start all eye drops at 1:30 pm today: * Eye drops (today): Prednisone - one drop in operative eye every 2 hours while awake Ofloxacin - one drop in operative eye every 2 hours while awake Bromfenac - one drop in operative eye daily SPECIAL CARE INSTRUCTIONS: * Tape plastic shield over eye to sleep at night. Call your doctor at with any concerns or problems. FOLLOW UP VISIT: Follow-up with Dr De La O at [place] office as scheduled. Diet Recommendations Home Diet: no limitations Procedures Procedures Performed: Right Cataract Phacoemulsification With Intraocular Lens Implant; [employer] Pending Studies Studies pending at discharge: no Medical Emergencies . Who to Call and When: Medical Emergencies: If at any time you feel your situation is an emergency, please call 911 immediately. . Non-Emergent Contact Non-Emergency issues call your: Surgeon . . "Provider Documentation" section prepared by Armando De La O. .
--- NOTE | 2017-08-17 11:33 | Anesthesiology Progress Note ---
Anesthesia Post Op Note Date & Time Aug 17, 2017 at 11:33 Vital Signs Pain Intensity: 4 Vital Signs Past 12 Hours Date Time Temp Pulse Resp B/P (MAP) Pulse Ox O2 Delivery O2 Flow Rate FiO2 08/17/17 11:21 36.1 78 16 106/71 (83) 99 Room Air 08/17/17 10:50 78 20 140/69 98 Room Air 08/17/17 10:46 97 16 132/74 96 Room Air 08/17/17 09:55 36.5 86 18 124/86 (99) 97 Room Air Notes Mental Status: alert / awake / arousable, participated in evaluation Nausea / Vomiting: adequately controlled Pain: adequately controlled Airway Patency, RR, SpO2: stable & adequate BP & HR: stable & adequate Hydration State: stable & adequate Anesthetic Complications: no major complications apparent
[2017-08-17 11:42] VITALS: BP 111/71; PULSE 75; O2SAT 94
== END | disposition home or self-care (01) ==
LOC: X.SURG 09:21
PROVIDERS: ATTEND Ophthalmology
DX: H25.11 Age-related nuclear cataract, right eye (principal); H52.201 Unspecified astigmatism, right eye; J45.909 Unspecified asthma, uncomplicated; K21.9 Gastro-esophageal reflux disease without esophagitis; E11.9 Type 2 diabetes mellitus without complications; I50.9 Heart failure, unspecified; I34.1 Nonrheumatic mitral (valve) prolapse; Z90.49 Acquired absence of other specified parts of digestive tract; Z90.710 Acquired absence of both cervix and uterus; Z86.718 Personal history of other venous thrombosis and embolism

== ENCOUNTER → 2017-10-07 | Outpatient (CLI) | payer BC, OTHER ==
[~2017-10-07] MED LIST changes: -500ML BSS 0.3ML EPI 1:1000PF IRRIG ONE; -ACETAMINOPHEN 325 MG TAB PO PRN; -AMVISC PLUS 0.8ML SYRINGE INT OCU ONE; -ATROPINE SULFATE 0.1 MG/ML 5ML SYR IV PRN; -BSS FLUSH ONE; -ENDOCOAT 0.85ML SYRINGE INT OCU ONE; -EpHEDrine SULFATE INJ 50 MG/ML AMP IV PRN; -EpINEphrine INJ 1MG/ML AMP 1 MG/ML AMP ONE; -FENTANYL CITRATE INJ 50 MCG/1 ML 2 ML VIAL ONE; -LACTATED RINGER'S 1000ML 500 ML IV SCH; -LIDOCAINE 4% OP SOLN DROP CHARGE ONE; -LIDOCAINE 4% OP SOLN DROP CHARGE OPR SCH; -LIDOCAINE HCL 1% MPF 2 ML VIAL ONE; +METO100T44 PO; -METO1TAB69 PO; -MIDAZOLAM HCL 1 MG/ML 2ML VIAL ONE; -MIX: 4ML BSS 1ML EPI 1:1000 PF TOP ONE; -MOXIFLOXACIN OPH SOLN PER DROP CHARGE ONE; -ONDANSETRON INJ 2 MG/ML 2 ML VIAL IV PRN; -PHENYLEPHRINE HCL 10% OP SOLN 5 ML BTL OPR ONE; -POVIDONE-IODINE OP SOLN 30 ML BTL ONE; -PROPARACAINE 0.5% OP SOLN PER DROP CHARGE OPR SCH; -PROPARACAINE HCL 0.5% OP SOLN 15 ML BTL OPR ONE; -TOBRAMYCIN/DEXAMETHASONE OPH OINT PER APPLN CHARGE ONE
== END | disposition home or self-care (01) ==
LOC: C.LABMFLN 13:55
PROVIDERS: ATTEND Family Medicine
DX: R31.9 Hematuria, unspecified (principal)

== ENCOUNTER → 2017-11-10 | Outpatient (CLI) | payer BC ==
[~2017-11-10] MED LIST changes: +GABA-112 PO; -METO100T44 PO; +METO50TA7 PO; +PRAV10TA39 PO; +PYRI100T4 PO
[2017-11-11 06:06] LABS: HEMOGLOBIN A1C 7.1 % (4.5-5.6)
== END | disposition home or self-care (01) ==
LOC: C.LABMFLN 11:30
PROVIDERS: ATTEND Internal Medicine Endocrinology, Diabetes & Metabolism
DX: E11.65 Type 2 diabetes mellitus with hyperglycemia (principal)

== ENCOUNTER → 2017-11-18 | Day surgery (SDC) | payer BC, OTHER ==
[2017-11-08 15:04] VITALS: Ht 163.8 cm; Wt 85.5 kg
[~2017-11-18] VITALS: Ht 163.8 cm; Wt 85.5 kg
[~2017-11-18] MED LIST changes: +ATROPINE SULFATE 0.1 MG/ML 5ML SYR IV PRN; +EpHEDrine SULFATE INJ 50 MG/ML AMP IV PRN; +LIDOCAINE HCL 2% 2 ML VIAL (20MG/ML) ONE; +PHENYLEPHRINE 100MCG/ML 5ML SYR ONE; +PROPOFOL IV EMULSION 10 MG/ML 20 ML VIAL IV ONE; +SODIUM CHLORIDE 0.9% 500ML 500 ML IV ONE
--- NOTE | 2017-11-18 09:54 | Endo History and Physical ---
History & Physical Date of Service: Nov 18, 2017. Chief Complaint: rectal bleeding,change in bowel habits Referring Physician: Dr. Rafael Mcdaniel History of Present Illness 67 yo CF who presents for colonoscopy secondary to rectal and change in bowel habits. Past Medical History Diabetes, Asthma, CHF, Thrombophlebitis, Other Past Surgical History Hx Cardiac Surgery: Yes (HEART CATH X2, NO STENTS) Hx Internal Defibrillator: No Hx Pacemaker: No Hx Abdominal Surgery: Yes (NELSON AND APPY, HYSTER, OOPHORECTOMY(S)) Hx of Implantable Prosthesis: No Hx Post-Op Nausea and Vomiting: No Hx Cancer Surgery: No Hx Thoracic Surgery: No Hx Orthopedic: No Hx Urinary Tract Surgery: No Family History Colon CA, Polyp Social History Smoking Status: Never Smoker Hx Substance Use: No Hx Alcohol Use: No Allergies Coded Allergies: Tomato (Verified Allergy, Severe, TONGUE SWELLS, 11/08/17) Latex (Verified Allergy, Intermediate, RASH OVER CONTACT SITE, 11/08/17) Milk (Verified Allergy, Intermediate, FULL BODY HIVES, 11/08/17) Naproxen (Verified Allergy, Intermediate, EYELITS SWOLLEN/REDDENED/ BURNING FEELING, 11/08/17) Soy Allergy (Verified Allergy, Intermediate, FACE AND CHEST RED, 11/08/17) Wheat (Verified Allergy, Intermediate, TONGUE SWELLS, GLUTEN ALLERGY, ) GLUTEN ALLERGY Phenazopyridine (Verified Allergy, Mild, INCREASED HEART RATE, N/V, 11/08/17 ) PHENAZOPYRIDINE PLUS TABLETS Ibuprofen (Verified Allergy, Unknown, EYELIDS SWELLED AND BURNING FEELING , 11/08/17) Lansoprazole (Verified Allergy, Unknown, UNK, 11/08/17) Proton Pump Inhibitors (Verified Allergy, Unknown, unkown, 11/08/17) Iodinated Contrast Media (Verified Adverse Reaction, Intermediate, FLUSHED , INCREASED HEART RATE, 11/08/17) Oxycodone (Verified Adverse Reaction, Intermediate, N/V, 11/08/17) Sulfamethoxazole w/Trimethoprim (Verified Adverse Reaction, Intermediate, "DEATHLY ILL" SEVERE N/V, 11/08/17) NSAIDs (Verified Adverse Reaction, Mild, GI UPSET, 11/08/17) Tramadol (Verified Adverse Reaction, Mild, N/V, 11/08/17) Corticosteroids (Verified Adverse Reaction, Unknown, FLUSHED, INCREASED HEART RATE, 11/08/17) Uncoded Allergies: METAL/JEWELRY (Allergy, Unknown, RASH, 06/29/17) Current Medications Reported Home Medications Medications Dose Route/Sig Max Daily Dose Days Date Category Dose Instructions Toprol-Xl (Metoprolol Succinate) 50 Mg Tabcr 50 Mg PO BID 11/08/17 Reported Vitamin B6 (Pyridoxine HCl) 100 Mg Tab 100 Mg PO BID 11/08/17 Reported Neurontin (Gabapentin) 100 Mg Cap 2 Tab PO HS 11/08/17 Reported Pravastatin Sodium 10 Mg Tab 1 Tab PO HS 90 11/08/17 Reported Qvar (Beclomethasone Dip) 80 Mcg/Act Aer 2 Puff INH BID PRN 08/01/17 Reported Biotin 1,000 Mcg Tab 1 Tab PO QAM 06/29/17 Reported Glipizide Er (Glipizide) 5 Mg Tab 1 Tab PO QAM 06/29/17 Reported Trulicity (Dulaglutide) 0.75 Mg/0.5 Ml Inj 0.75 Mg INJ WK 06/29/17 Reported [place] Cozaar (Losartan Potassium) 50 Mg Tab 0.5 Tab PO BID 06/29/17 Reported Nexium (Esomeprazole Magnesium) 20 Mg Cap 20 Mg PO QAM 06/29/17 Reported Nitrostat (Nitroglycerin) 0.4 Mg Tab 0.4 Mg UT PRN PRN 01/31/17 Reported Symbicort 160/4.5 Inhaler (Budesonide/Formoterol Fumarate) Aero 2 Puffs INH BID 01/31/17 Reported Aspirin Ec (Aspirin) 81 Mg Tab 81 Mg PO QAM 12/21/16 Reported Voltaren 1% Top Gel (Diclofenac Sodium (Topical)) 1 % Gel 2 Gm TOP QID PRN 12/21/16 Reported Alida Allergy (Fexofenadine Hcl) 180 Mg Tab 1 Tab PO DAILY PRN 12/21/16 Reported Flonase Allergy Relief (Fluticasone Propionate (Nasal)) 50 Mcg/Act Spr 2 Sprays HAIDER DAILY 12/21/16 Reported Spironolactone 25 Mg Tab 12.5 Mg PO QAM 11/21/15 Reported Lasix (Furosemide) 40 Mg Tab 0.5 Tab PO QAM 11/21/15 Reported Alpha-Lipoic Acid (Alpha-Lipoic Acid (Thioctic Ac) 100 Mg Tab 100 Mg PO QAM 11/21/15 Reported Vitamin D 400 Iu (Cholecalciferol) 400 Unit Cap 400 Inter.unit PO QAM 12/04/13 Reported Singulair (Montelukast Sodium) 10 Mg Tab 10 Mg PO QAM 12/04/13 Reported Azo-Cranberry (Cranberry (Vaccinium Macrocarp) 450 Mg Tab 1 Tab PO QAM 12/04/13 Reported Vital Signs Weight (Kilograms): 85.45 Height (Feet): 5 Height (Inches): 4.5 Date Time Temp Pulse Resp B/P (MAP) Pulse Ox O2 Delivery O2 Flow Rate FiO2 11/18/17 09:30 36.7 91 20 123/68 (86) 97 Room Air Physical Exam General Appearance: WD/WN, no apparent distress Respiratory/Chest: Auscultation: breath sounds normal Cardiovascular: Heart Auscultation: RRR Abdomen: Bowel Sounds: normal Inspection & Palpation: soft, non-distended, no tenderness, guarding & rebound Assessment and Plan Assessment: 67 yo CF who presents for colonoscopy secondary to rectal and change in bowel habits. Plan: Proceed with colonoscopy.
--- NOTE | 2017-11-18 10:31 | Anesthesiology Progress Note ---
Anesthesia Post Op Note Date & Time Nov 18, 2017 at 10:31 Vital Signs Pain Intensity: 0 Vital Signs Past 12 Hours Date Time Temp Pulse Resp B/P (MAP) Pulse Ox O2 Delivery O2 Flow Rate FiO2 11/18/17 10:25 82 20 126/71 (89) 96 Room Air 11/18/17 09:30 36.7 91 20 123/68 (86) 97 Room Air Notes Mental Status: alert / awake / arousable, participated in evaluation Pt Amnestic to Procedure: Yes Nausea / Vomiting: adequately controlled Pain: adequately controlled Airway Patency, RR, SpO2: stable & adequate BP & HR: stable & adequate Hydration State: stable & adequate Anesthetic Complications: no major complications apparent
--- NOTE | 2017-11-18 10:35 | GI REPORT ---
Procedure Date: 11/18/2017 9:46 AM Procedure: Colonoscopy Indications: High risk colon cancer surveillance: Personal history of colonic polyps Medicines: Monitored Anesthesia Care Complications: No immediate complications. Estimated Blood Loss: Estimated blood loss: none. Procedure: Pre-Anesthesia Assessment: - Prior to the procedure, a History and Physical was performed, and patient medications and allergies were reviewed. The patient's tolerance of previous anesthesia was also reviewed. The risks and benefits of the procedure and the sedation options and risks were discussed with the patient. All questions were answered, and informed consent was obtained. Prior Anticoagulants: The patient has taken no previous anticoagulant or antiplatelet agents. ASA Grade Assessment: II - A patient with mild systemic disease. After reviewing the risks and benefits, the patient was deemed in satisfactory condition to undergo the procedure. After I obtained informed consent, the scope was passed under direct vision. Throughout the procedure, the patient's blood pressure, pulse, and oxygen saturations were monitored continuously. The On-site loaner was introduced through the anus and advanced to the terminal ileum. The colonoscopy was performed without difficulty. The patient tolerated the procedure well. The quality of the bowel preparation was good. The terminal ileum, ileocecal valve, appendiceal orifice, and rectum were photographed. Findings: The perianal and digital rectal examinations were normal. Multiple small-mouthed diverticula were found in the sigmoid colon. Non-bleeding internal hemorrhoids were found during retroflexion. The hemorrhoids were small. Impression: - Diverticulosis in the sigmoid colon. - Non-bleeding internal hemorrhoids. - No specimens collected. Recommendation: - Resume previous diet. - Continue present medications. - Repeat colonoscopy in 5 years for surveillance. - Return to primary care physician as previously scheduled. Ion Hardwick, DO 11/18/2017 10:35:26 AM This report has been signed electronically. Note Initiated On: 11/18/2017 9:46 AM I attest to the content of the Intraoperative Record and orders documented therein, exceptions below
--- NOTE | 2017-11-18 10:37 | Discharge Instructions ---
Endoscopy Patient Instructions Date / Procedure(s) Performed Nov 18, 2017. Colonoscopy Allergy Information Coded Allergies: Tomato (Verified Allergy, Severe, TONGUE SWELLS, 11/08/17) Latex (Verified Allergy, Intermediate, RASH OVER CONTACT SITE, 11/08/17) Milk (Verified Allergy, Intermediate, FULL BODY HIVES, 11/08/17) Naproxen (Verified Allergy, Intermediate, EYELITS SWOLLEN/REDDENED/ BURNING FEELING, 11/08/17) Soy Allergy (Verified Allergy, Intermediate, FACE AND CHEST RED, 11/08/17) Wheat (Verified Allergy, Intermediate, TONGUE SWELLS, GLUTEN ALLERGY, ) GLUTEN ALLERGY Phenazopyridine (Verified Allergy, Mild, INCREASED HEART RATE, N/V, 11/08/17 ) PHENAZOPYRIDINE PLUS TABLETS Ibuprofen (Verified Allergy, Unknown, EYELIDS SWELLED AND BURNING FEELING , 11/08/17) Lansoprazole (Verified Allergy, Unknown, UNK, 11/08/17) Proton Pump Inhibitors (Verified Allergy, Unknown, unkown, 11/08/17) Iodinated Contrast Media (Verified Adverse Reaction, Intermediate, FLUSHED , INCREASED HEART RATE, 11/08/17) Oxycodone (Verified Adverse Reaction, Intermediate, N/V, 11/08/17) Sulfamethoxazole w/Trimethoprim (Verified Adverse Reaction, Intermediate, "DEATHLY ILL" SEVERE N/V, 11/08/17) NSAIDs (Verified Adverse Reaction, Mild, GI UPSET, 11/08/17) Tramadol (Verified Adverse Reaction, Mild, N/V, 11/08/17) Corticosteroids (Verified Adverse Reaction, Unknown, FLUSHED, INCREASED HEART RATE, 11/08/17) Uncoded Allergies: METAL/JEWELRY (Allergy, Unknown, RASH, 06/29/17) Discharge Date / Findings Nov 18, 2017. Diverticulosis Internal hemorrhoids Medication Instructions Stopped Medication(s): took ASA yesterday OK to resume all medications today as prescribed Reported Home Medications Medications Dose Route/Sig Max Daily Dose Days Date Category Dose Instructions Toprol-Xl (Metoprolol Succinate) 50 Mg Tabcr 50 Mg PO BID 11/08/17 Reported Vitamin B6 (Pyridoxine HCl) 100 Mg Tab 100 Mg PO BID 11/08/17 Reported Neurontin (Gabapentin) 100 Mg Cap 2 Tab PO HS 11/08/17 Reported Pravastatin Sodium 10 Mg Tab 1 Tab PO HS 90 11/08/17 Reported Qvar (Beclomethasone Dip) 80 Mcg/Act Aer 2 Puff INH BID PRN 08/01/17 Reported Biotin 1,000 Mcg Tab 1 Tab PO QAM 06/29/17 Reported Glipizide Er (Glipizide) 5 Mg Tab 1 Tab PO QAM 06/29/17 Reported Trulicity (Dulaglutide) 0.75 Mg/0.5 Ml Inj 0.75 Mg INJ WK 06/29/17 Reported [place]ED[place] Cozaar (Losartan Potassium) 50 Mg Tab 0.5 Tab PO BID 06/29/17 Reported Nexium (Esomeprazole Magnesium) 20 Mg Cap 20 Mg PO QAM 06/29/17 Reported Nitrostat (Nitroglycerin) 0.4 Mg Tab 0.4 Mg UT PRN PRN 01/31/17 Reported Symbicort 160/4.5 Inhaler (Budesonide/Formoterol Fumarate) Aero 2 Puffs INH BID 01/31/17 Reported Aspirin Ec (Aspirin) 81 Mg Tab 81 Mg PO QAM 12/21/16 Reported Voltaren 1% Top Gel (Diclofenac Sodium (Topical)) 1 % Gel 2 Gm TOP QID PRN 12/21/16 Reported Alida Allergy (Fexofenadine Hcl) 180 Mg Tab 1 Tab PO DAILY PRN 12/21/16 Reported Flonase Allergy Relief (Fluticasone Propionate (Nasal)) 50 Mcg/Act Spr 2 Sprays HAIDER DAILY 12/21/16 Reported Spironolactone 25 Mg Tab 12.5 Mg PO QAM 11/21/15 Reported Lasix (Furosemide) 40 Mg Tab 0.5 Tab PO QAM 11/21/15 Reported Alpha-Lipoic Acid (Alpha-Lipoic Acid (Thioctic Ac) 100 Mg Tab 100 Mg PO QAM 11/21/15 Reported Vitamin D 400 Iu (Cholecalciferol) 400 Unit Cap 400 Inter.unit PO QAM 12/04/13 Reported Singulair (Montelukast Sodium) 10 Mg Tab 10 Mg PO QAM 12/04/13 Reported Azo-Cranberry (Cranberry (Vaccinium Macrocarp) 450 Mg Tab 1 Tab PO QAM 12/04/13 Reported Provider Instructions Activity Restrictions - No exercising or heavy lifting for 24 hours. - Do not drink alcohol the day of the procedure. - Do not drive a car or operate machinery until the day after the procedure. - Do not make any important decisions or sign important papers in 24 hours after the procedure. Following Day: - Return to full activity which may include returning to work/school. Diet Start your diet with liquids and light foods (jello, soup, juice, toast). Then eat your usual diet if not nauseated. Treatment For Common After Affects For mild abdominal pain, bloating, or excessive gas: - Rest - Eat lightly - Lie on right side Follow-Up Information Follow-up with Dr. Rafael Mcdaniel as scheduled Anesthesia Information What You Should Know You have had a procedure that required some medicine to reduce anxiety and discomfort. This treatment is called moderate sedation. After receiving the treatment, you may be sleepy, but you will be able to breathe on your own. The effects of the treatment may last for several hours. Follow these instructions along with Activity/Diet recommendations noted above: * Do NOT do anything where dizziness or clumsiness would be dangerous. * Rest quietly at home today, then you can be up and about tomorrow. * Have a responsible person stay with you the rest of today. * You may have had an I.V. today. If so, you may take the dressing off later today. Recommendations Call your doctor if: * Trouble breathing * Continuous vomiting for more than 24 hours * Temperature above 101 degrees * Severe abdominal pain or bloating * Pain not relieved by pain medicine ordered * There is increased drainage or redness from any incision * A large amount of rectal bleeding greater than 2-3 tablespoons. (If you had a polyp/s removed or have hemorrhoids, a small amount of blood - from the rectum is to be expected.) * You have any unanswered questions or concerns. IN THE EVENT OF A SERIOUS EMERGENCY, GO TO THE NEAREST EMERGENCY ROOM Your discharge instructions were prepared by provider Ion Hardwick. Patient Instructions Signature Page Zahida Hansen Patient (or Guardian) Signature/Date: I have read and understand the instructions given to me by my caregivers. Caregiver/RN/Doctor Signature/Date: The above-named patient and/or guardian has received patient instructions on this date. + Original Patient Signature Page (only) stays with chart. Please make copy for patient.
[2017-11-18 11:00] VITALS: BP 111/67; PULSE 81; O2SAT 96
== END | disposition home or self-care (01) ==
LOC: C.GI 08:58
PROVIDERS: ATTEND Internal Medicine
DX: Z12.11 Encounter for screening for malignant neoplasm of colon (principal); K62.5 Hemorrhage of anus and rectum; R19.4 Change in bowel habit; E11.9 Type 2 diabetes mellitus without complications; J45.909 Unspecified asthma, uncomplicated; Z79.899 Other long term (current) drug therapy; Z79.82 Long term (current) use of aspirin; Z86.010 Personal history of colon polyps; K57.30 Diverticulosis of large intestine without perforation or abscess without bleeding; K64.8 Other hemorrhoids

== ENCOUNTER → 2017-11-21 | Outpatient (CLI) | payer BC, OTHER ==
[~2017-11-21] MED LIST changes: -ATROPINE SULFATE 0.1 MG/ML 5ML SYR IV PRN; -EpHEDrine SULFATE INJ 50 MG/ML AMP IV PRN; -LIDOCAINE HCL 2% 2 ML VIAL (20MG/ML) ONE; -PHENYLEPHRINE 100MCG/ML 5ML SYR ONE; -PROPOFOL IV EMULSION 10 MG/ML 20 ML VIAL IV ONE; -SODIUM CHLORIDE 0.9% 500ML 500 ML IV ONE
--- NOTE | 2017-11-22 07:52 | MAMMOGRAPHY REPORT ---
BILATERAL DIGITAL SCREENING MAMMOGRAM TOMOSYNTHESIS WITH CAD: 11/21/2017 CLINICAL HISTORY: Routine screening. Patient has no complaints. TECHNIQUE: Breast tomosynthesis in addition to standard 2D mammography was performed. Current study was also evaluated with a Computer Aided Detection (CAD) system. COMPARISON: Comparison is made to exams dated: 11/18/2016 mammogram - [facility], mammogram, 10/14/2014 mammogram, 10/09/2014 mammogram, 07/11/2013 mammogram, and 03/01/2012 mammog soheila - [facility]. BREAST COMPOSITION: There are scattered areas of fibroglandular density in both breasts. FINDINGS: The parenchymal pattern is similar to prior mammograms. No developing mass, architectural distortion or cluster of suspicious microcalcifications is seen. IMPRESSION: ACR BI-RADS CATEGORY 2: BENIGN There is no mammographic evidence of malignancy. A 1 year screening mammogram is recommended. The pa tient will receive written notification of the results. Approximately 10% of breast cancers are not detected with mammography. A negative mammographic report should not delay biopsy if a clinically suggestive mass is present. Krystal Conway M.D. ay/:11/21/2017 15:51:15 Extract Operator: Marli PICKENS(Joby)(Kiko)(BD), [facility] letter sent: Normal 1/2 BI-RADS Code: ACR BI-RADS Category 2: Benign
== END | disposition home or self-care (01) ==
LOC: C.MAMM 13:15
PROVIDERS: ATTEND Family Medicine
DX: Z12.31 Encounter for screening mammogram for malignant neoplasm of breast (principal)

== ENCOUNTER → 2017-11-23 | Outpatient (CLI) | payer BC, OTHER ==
[2017-11-23 18:05] LABS: BASO % 0.5 %; BASO ABS # 0.03 K/uL (0-0.2); EOS % 1.3 %; EOS ABS # 0.08 K/uL (0-0.5); HEMOGLOBIN 13.3 g/dL (12.0-16.0); IG# 0.02 K/uL (0.00-0.02); LYMPH % 27.9 %; LYMPH ABS # 1.73 K/uL (1.2-3.4); MEAN CELL VOLUME 88.2 fL (80-100); MEAN CORPUSCULAR HEMOGLOBIN 28.6 pg (25-34); MEAN CORPUSCULAR HGB CONC 32.4 g/dl (32-36); MEAN PLATELET VOLUME 11.3 fL (7.4-10.4); MONO % 5.3 %; MONO ABS # 0.33 K/uL (0.11-0.59); NEUT % 64.7 %; PLATELET COUNT 220 K/uL (130-400); RED CELL DISTRIBUTION WIDTH CV 14.1 % (11.5-14.5); RED CELL DISTRIBUTION WIDTH SD 45.6 fL (36.4-46.3); WHITE BLOOD COUNT 6.19 K/uL (4.8-10.8)
== END | disposition home or self-care (01) ==
LOC: C.LABMFLN 11:21
PROVIDERS: ATTEND Family Medicine
DX: R10.31 Right lower quadrant pain (principal); N20.0 Calculus of kidney

== ENCOUNTER → 2017-12-16 | Outpatient (CLI) | payer BC, OTHER ==
[~2017-12-16] MED LIST changes: -METO50TA7 PO; +METO50TA8 PO
--- NOTE | 2017-12-16 13:41 | DIAGNOSTIC IMAGING REPORT ---
KUB CLINICAL HISTORY: Nephrolithiasis. FINDINGS: 2 AP abdominal radiograph are compared to study dated 11/18/2016 and correlated with abdominal CT dated 07/22/2015. There is a nonobstructed abdominal bowel gas pattern. Cholecystectomy clips are identified in the right upper quadrant. There are at least 3 small calculi projecting over the lower pole the right kidney measuring up to 5 mm A 7 mm calculus projects over the lower pole of the right kidney. These are new or increased in size from 2017. There is a 7 mm calcification in the left hemipelvis, which is also new from 2017 and may represent a distal left ureteral stone. Numerous pelvic phleboliths are identified. The skeletal structures are osteopenic. There is mild lumbosacral spondylosis. The bony pelvis appears intact. IMPRESSION: 1. Bilateral nephrolithiasis. The kidney stones are new or increased in size from 11/18/2016. 2. There is a new 7 mm calcification in the left hemipelvis projecting over the distal left ureter. This may represent an obstructing ureteral stone. Correlation with clinical findings and urinalysis will be required. Electronically signed by: Miguelangel Sargent M.D. 12/16/2017 1:40 PM Dictated Date/Time: 12/16/2017 1:37 PM
== END | disposition home or self-care (01) ==
LOC: C.RAD 13:09
PROVIDERS: ATTEND Urology
DX: N20.0 Calculus of kidney (principal)

== ENCOUNTER → 2017-12-26 | Outpatient (CLI) | payer BC, OTHER ==
[2017-12-26 18:01] LABS: BASO % 0.3 %; BASO ABS # 0.02 K/uL (0-0.2); EOS ABS # 0.06 K/uL (0-0.5); HEMOGLOBIN 13.5 g/dL (12.0-16.0); IG# 0.02 K/uL (0.00-0.02); LYMPH % 24.7 %; LYMPH ABS # 1.55 K/uL (1.2-3.4); MEAN CELL VOLUME 85.1 fL (80-100); MEAN CORPUSCULAR HEMOGLOBIN 28.7 pg (25-34); MEAN CORPUSCULAR HGB CONC 33.8 g/dl (32-36); MEAN PLATELET VOLUME 10.5 fL (7.4-10.4); MONO % 6.7 %; MONO ABS # 0.42 K/uL (0.11-0.59); PLATELET COUNT 218 K/uL (130-400); RED CELL DISTRIBUTION WIDTH CV 13.7 % (11.5-14.5); RED CELL DISTRIBUTION WIDTH SD 42.4 fL (36.4-46.3); WHITE BLOOD COUNT 6.27 K/uL (4.8-10.8)
[2017-12-26 18:29] LABS: ALBUMIN 3.6 gm/dl (3.4-5.0); ALKALINE PHOSPHATASE 89 U/L (45-117); ALT/SGPT 35 U/L (12-78); AST/SGOT 22 U/L (15-37); BLOOD UREA NITROGEN 22 mg/dl (7-18); CALCIUM 9.7 mg/dl (8.5-10.1); CARBON DIOXIDE 27 mmol/L (21-32); CREATININE 1.19 mg/dl (0.60-1.20); GLUCOSE 156 mg/dl (70-99); LIPASE 222 U/L (73-393); SODIUM 137 mmol/L (136-145)
== END | disposition home or self-care (01) ==
LOC: C.LABMFLN 14:28
PROVIDERS: ATTEND Family Medicine
DX: R10.9 Unspecified abdominal pain (principal)

== ENCOUNTER → 2018-01-10 | Outpatient (CLI) | payer BC, OTHER | END | disposition home or self-care (01) | LOC: C.LABMFLN 10:23 | PROVIDERS: ATTEND Family Medicine | DX: R10.31 Right lower quadrant pain (principal) ==

== ENCOUNTER → 2018-01-24 | Outpatient (CLI) | payer BC, OTHER ==
[2018-01-24 18:17] LABS: URIC ACID 5.6 mg/dl (2.6-7.2)
== END | disposition home or self-care (01) ==
LOC: C.LABMFLN 16:06
PROVIDERS: ATTEND Family Medicine
DX: N20.0 Calculus of kidney (principal); E55.9 Vitamin D deficiency, unspecified; E11.9 Type 2 diabetes mellitus without complications

== ENCOUNTER → 2018-01-26 | Outpatient (CLI) | payer BC, OTHER | END | disposition home or self-care (01) | LOC: C.LABMFLN 10:42 | PROVIDERS: ATTEND Family Medicine | DX: N20.0 Calculus of kidney (principal) ==

== ENCOUNTER → 2018-01-30 | Outpatient (CLI) | payer BC, OTHER | END | disposition home or self-care (01) | LOC: C.LABSPEC 17:01 | PROVIDERS: ATTEND Urology | DX: N20.0 Calculus of kidney (principal) ==

== ENCOUNTER → 2018-01-30 | Outpatient (CLI) | payer BC, OTHER ==
--- NOTE | 2018-01-30 14:35 | DIAGNOSTIC IMAGING REPORT ---
KUB CLINICAL HISTORY: Nephrolithiasis. COMPARISON STUDY: CT of the abdomen and pelvis July 22, 2015 and KUB December 16, 2017. CT of the abdomen and pelvis December 27, 2017. FINDINGS: A 6 mm calculus within the lower pole of the left kidney is similar to exam of December 16, 2017. Pelvic calcifications favor phleboliths. The 7 mm calcification within the left hemipelvis described on exam of December 16, 2017 is not visualized on this exam. Bowel gas pattern is normal. There are cholecystectomy clips. A possible right renal calculus shown on prior KUB was shown to be extrarenal in location on CT of December 27, 2017. IMPRESSION: 1. No change in a 6 mm left renal calculus. 2. No ureteral calculi identified. Electronically signed by: Bakari Casas M.D. 01/30/2018 2:34 PM Dictated Date/Time: 01/30/2018 2:30 PM
== END | disposition home or self-care (01) ==
LOC: C.RAD 13:55
PROVIDERS: ATTEND Urology
DX: N20.0 Calculus of kidney (principal)

== ENCOUNTER → 2018-03-02 | Day surgery (SDC) | payer BC, OTHER ==
[2018-02-22 13:14] VITALS: Ht 163.8 cm; Wt 85.0 kg
[~2018-03-02] VITALS: Ht 163.8 cm; Wt 85.0 kg
[~2018-03-02] MED LIST changes: +DOCU-94 PO; -ESOM20CA PO; -FEXO1TAB49 PO; -FLUT0.15 NAE; -GABA-112 PO; +GABA-113 PO; +LIDOCAINE HCL 2% 2 ML VIAL (20MG/ML) ONE; -MONT1TAB3 PO; +NXM/40 PO; +PROPOFOL IV EMULSION 10 MG/ML 20 ML VIAL IV ONE; -QVRINH80 INH; +RANI150T85 PO; +SODIUM CHLORIDE 0.9% 500ML 500 ML IV ONE
[2018-03-02 11:30] VITALS: TEMP 36.5
--- NOTE | 2018-03-02 11:37 | Endo History and Physical ---
History & Physical Date of Service: Mar 02, 2018. Chief Complaint: Chest pain, reflux Referring Physician: Rafael Mcdaniel History of Present Illness 67 yo CF who presents for EGD secondary to chest pain and GERD. Past Medical History Diabetes, Asthma, CHF, Thrombophlebitis, Other Past Surgical History Hx Cardiac Surgery: Yes (HEART CATH X2, NO STENTS) Hx Internal Defibrillator: No Hx Pacemaker: No Hx Abdominal Surgery: Yes (NELSON AND APPY, HYSTER, OOPHORECTOMY(S)) Hx of Implantable Prosthesis: No Hx Post-Op Nausea and Vomiting: No Hx Cancer Surgery: No Hx Thoracic Surgery: No Hx Orthopedic: No Hx Urinary Tract Surgery: No Family History Colon CA, Polyp Social History Smoking Status: Never Smoker Hx Substance Use: No Hx Alcohol Use: No Allergies Coded Allergies: Tomato (Verified Allergy, Severe, TONGUE SWELLS, 02/22/18) Latex (Verified Allergy, Intermediate, RASH OVER CONTACT SITE, 02/22/18) Milk (Verified Allergy, Intermediate, FULL BODY HIVES, 02/22/18) Naproxen (Verified Allergy, Intermediate, EYELITS SWOLLEN/REDDENED/ BURNING FEELING, 02/22/18) Soy Allergy (Verified Allergy, Intermediate, FACE AND CHEST RED, 02/22/18) Wheat (Verified Allergy, Intermediate, TONGUE SWELLS, GLUTEN ALLERGY, 02/22) GLUTEN ALLERGY Phenazopyridine (Verified Allergy, Mild, INCREASED HEART RATE, N/V, ) PHENAZOPYRIDINE PLUS TABLETS Ibuprofen (Verified Allergy, Unknown, EYELIDS SWELLED AND BURNING FEELING , 02/22/18) Lansoprazole (Verified Allergy, Unknown, SEVERE ABDOMINAL PAIN, 02/22/18) Proton Pump Inhibitors (Verified Allergy, Unknown, SEVERE ABDOMINAL PAIN, 02/22/18) Iodinated Contrast Media (Verified Adverse Reaction, Intermediate, FLUSHED , INCREASED HEART RATE, 02/22/18) Oxycodone (Verified Adverse Reaction, Intermediate, N/V, 02/22/18) Sulfamethoxazole w/Trimethoprim (Verified Adverse Reaction, Intermediate, "DEATHLY ILL" SEVERE N/V, 02/22/18) NSAIDs (Verified Adverse Reaction, Mild, GI UPSET, 02/22/18) Tramadol (Verified Adverse Reaction, Mild, N/V, 02/22/18) Corticosteroids (Verified Adverse Reaction, Unknown, FLUSHED, INCREASED HEART RATE, 02/22/18) Uncoded Allergies: METAL/JEWELRY (Allergy, Unknown, RASH, 06/29/17) Current Medications Reported Home Medications Medications Dose Route/Sig Max Daily Dose Days Date Category Dose Instructions Colace (Docusate Sodium) 100 Mg Cap 1 Cap PO HS 02/22/18 Reported Zantac (Ranitidine HCl) 150 Mg Tab 150 Mg PO BID 02/22/18 Reported Nexium (Esomeprazole Magnesium) 40 Mg Capcr 40 Mg PO QAM 02/22/18 Reported Neurontin (Gabapentin) 300 Mg Cap 300 Mg PO TID 02/22/18 Reported Toprol-Xl (Metoprolol Succinate) 50 Mg Tabcr 50 Mg PO BID 11/08/17 Reported Vitamin B6 (Pyridoxine HCl) 100 Mg Tab 100 Mg PO BID 11/08/17 Reported Pravastatin Sodium 10 Mg Tab 1 Tab PO HS 90 11/08/17 Reported Biotin 1,000 Mcg Tab 1 Tab PO QAM 06/29/17 Reported Glipizide Er (Glipizide) 5 Mg Tab 1 Tab PO QAM 06/29/17 Reported Trulicity (Dulaglutide) 0.75 Mg/0.5 Ml Inj 0.75 Mg INJ WK 06/29/17 Reported ON HOLD FOR 6 WEEKS. Cozaar (Losartan Potassium) 50 Mg Tab 0.5 Tab PO QAM 06/29/17 Reported Nitrostat (Nitroglycerin) 0.4 Mg Tab 0.4 Mg UT PRN PRN 01/31/17 Reported Symbicort 160/4.5 Inhaler (Budesonide/Formoterol Fumarate) Aero 2 Puffs INH BID 01/31/17 Reported Aspirin Ec (Aspirin) 81 Mg Tab 81 Mg PO QAM 12/21/16 Reported Voltaren 1% Top Gel (Diclofenac Sodium (Topical)) 1 % Gel 2 Gm TOP QID PRN 12/21/16 Reported Spironolactone 25 Mg Tab 12.5 Mg PO QAM 11/21/15 Reported Lasix (Furosemide) 40 Mg Tab 0.5 Tab PO QAM 11/21/15 Reported Alpha-Lipoic Acid (Alpha-Lipoic Acid (Thioctic Ac) 100 Mg Tab 100 Mg PO QAM 11/21/15 Reported Vitamin D 400 Iu (Cholecalciferol) 400 Unit Cap 400 Inter.unit PO QAM 12/04/13 Reported Azo-Cranberry (Cranberry (Vaccinium Macrocarp) 450 Mg Tab 1 Tab PO QAM 12/04/13 Reported Vital Signs Weight (Kilograms): 85 Height (Feet): 5 Height (Inches): 4.5 Date Time Temp Pulse Resp B/P (MAP) Pulse Ox O2 Delivery O2 Flow Rate FiO2 03/02/18 11:30 36.5 67 18 150/112 (125) 96 Room Air Physical Exam General Appearance: WD/WN, no apparent distress Respiratory/Chest: Auscultation: breath sounds normal Cardiovascular: Heart Auscultation: RRR Abdomen: Bowel Sounds: normal Inspection & Palpation: soft, non-distended, no tenderness, guarding & rebound Assessment and Plan Assessment: 67 yo CF who presents for EGD secondary to chest pain and GERD. Plan: Proceed with EGD.
--- NOTE | 2018-03-02 12:35 | Discharge Instructions ---
Endoscopy Patient Instructions Date / Procedure(s) Performed Mar 02, 2018. EGD Allergy Information Coded Allergies: Tomato (Verified Allergy, Severe, TONGUE SWELLS, 02/22/18) Latex (Verified Allergy, Intermediate, RASH OVER CONTACT SITE, 02/22/18) Milk (Verified Allergy, Intermediate, FULL BODY HIVES, 02/22/18) Naproxen (Verified Allergy, Intermediate, EYELITS SWOLLEN/REDDENED/ BURNING FEELING, 02/22/18) Soy Allergy (Verified Allergy, Intermediate, FACE AND CHEST RED, 02/22/18) Wheat (Verified Allergy, Intermediate, TONGUE SWELLS, GLUTEN ALLERGY, 02/22) GLUTEN ALLERGY Phenazopyridine (Verified Allergy, Mild, INCREASED HEART RATE, N/V, ) PHENAZOPYRIDINE PLUS TABLETS Ibuprofen (Verified Allergy, Unknown, EYELIDS SWELLED AND BURNING FEELING , 02/22/18) Lansoprazole (Verified Allergy, Unknown, SEVERE ABDOMINAL PAIN, 02/22/18) Proton Pump Inhibitors (Verified Allergy, Unknown, SEVERE ABDOMINAL PAIN, 02/22/18) Iodinated Contrast Media (Verified Adverse Reaction, Intermediate, FLUSHED , INCREASED HEART RATE, 02/22/18) Oxycodone (Verified Adverse Reaction, Intermediate, N/V, 02/22/18) Sulfamethoxazole w/Trimethoprim (Verified Adverse Reaction, Intermediate, "DEATHLY ILL" SEVERE N/V, 02/22/18) NSAIDs (Verified Adverse Reaction, Mild, GI UPSET, 02/22/18) Tramadol (Verified Adverse Reaction, Mild, N/V, 02/22/18) Corticosteroids (Verified Adverse Reaction, Unknown, FLUSHED, INCREASED HEART RATE, 02/22/18) Uncoded Allergies: METAL/JEWELRY (Allergy, Unknown, RASH, 06/29/17) Discharge Date / Findings Mar 02, 2018. Balloon dilation of the esophagus to 20mm Medication Instructions OK to resume all medications today as prescribed Reported Home Medications Medications Dose Route/Sig Max Daily Dose Days Date Category Dose Instructions Colace (Docusate Sodium) 100 Mg Cap 1 Cap PO HS 02/22/18 Reported Zantac (Ranitidine HCl) 150 Mg Tab 150 Mg PO BID 02/22/18 Reported Nexium (Esomeprazole Magnesium) 40 Mg Capcr 40 Mg PO QAM 02/22/18 Reported Neurontin (Gabapentin) 300 Mg Cap 300 Mg PO TID 02/22/18 Reported Toprol-Xl (Metoprolol Succinate) 50 Mg Tabcr 50 Mg PO BID 11/08/17 Reported Vitamin B6 (Pyridoxine HCl) 100 Mg Tab 100 Mg PO BID 11/08/17 Reported Pravastatin Sodium 10 Mg Tab 1 Tab PO HS 90 11/08/17 Reported Biotin 1,000 Mcg Tab 1 Tab PO QAM 06/29/17 Reported Glipizide Er (Glipizide) 5 Mg Tab 1 Tab PO QAM 06/29/17 Reported Trulicity (Dulaglutide) 0.75 Mg/0.5 Ml Inj 0.75 Mg INJ WK 06/29/17 Reported ON HOLD FOR 6 WEEKS. Cozaar (Losartan Potassium) 50 Mg Tab 0.5 Tab PO QAM 06/29/17 Reported Nitrostat (Nitroglycerin) 0.4 Mg Tab 0.4 Mg UT PRN PRN 01/31/17 Reported Symbicort 160/4.5 Inhaler (Budesonide/Formoterol Fumarate) Aero 2 Puffs INH BID 01/31/17 Reported Aspirin Ec (Aspirin) 81 Mg Tab 81 Mg PO QAM 12/21/16 Reported Voltaren 1% Top Gel (Diclofenac Sodium (Topical)) 1 % Gel 2 Gm TOP QID PRN 12/21/16 Reported Spironolactone 25 Mg Tab 12.5 Mg PO QAM 11/21/15 Reported Lasix (Furosemide) 40 Mg Tab 0.5 Tab PO QAM 11/21/15 Reported Alpha-Lipoic Acid (Alpha-Lipoic Acid (Thioctic Ac) 100 Mg Tab 100 Mg PO QAM 11/21/15 Reported Vitamin D 400 Iu (Cholecalciferol) 400 Unit Cap 400 Inter.unit PO QAM 12/04/13 Reported Azo-Cranberry (Cranberry (Vaccinium Macrocarp) 450 Mg Tab 1 Tab PO QAM 12/04/13 Reported Provider Instructions Activity Restrictions - No exercising or heavy lifting for 24 hours. - Do not drink alcohol the day of the procedure. - Do not drive a car or operate machinery until the day after the procedure. - Do not make any important decisions or sign important papers in 24 hours after the procedure. Following Day: - Return to full activity which may include returning to work/school. Diet Start your diet with liquids and light foods (jello, soup, juice, toast). Then eat your usual diet if not nauseated. Treatment For Common After Affects For mild abdominal pain, bloating, or excessive gas: - Rest - Eat lightly - Lie on right side Follow-Up Information Follow-up with Rafael Mcdaniel as scheduled Anesthesia Information What You Should Know You have had a procedure that required some medicine to reduce anxiety and discomfort. This treatment is called moderate sedation. After receiving the treatment, you may be sleepy, but you will be able to breathe on your own. The effects of the treatment may last for several hours. Follow these instructions along with Activity/Diet recommendations noted above: * Do NOT do anything where dizziness or clumsiness would be dangerous. * Rest quietly at home today, then you can be up and about tomorrow. * Have a responsible person stay with you the rest of today. * You may have had an I.V. today. If so, you may take the dressing off later today. Recommendations Call your doctor if: * Trouble breathing * Continuous vomiting for more than 24 hours * Temperature above 101 degrees * Severe abdominal pain or bloating * Pain not relieved by pain medicine ordered * There is increased drainage or redness from any incision * A large amount of rectal bleeding greater than 2-3 tablespoons. (If you had a polyp/s removed or have hemorrhoids, a small amount of blood - from the rectum is to be expected.) * You have any unanswered questions or concerns. IN THE EVENT OF A SERIOUS EMERGENCY, GO TO THE NEAREST EMERGENCY ROOM Your discharge instructions were prepared by provider Ion Hardwick. Patient Instructions Signature Page Zahida Hansen Patient (or Guardian) Signature/Date: I have read and understand the instructions given to me by my caregivers. Caregiver/RN/Doctor Signature/Date: The above-named patient and/or guardian has received patient instructions on this date. + Original Patient Signature Page (only) stays with chart. Please make copy for patient.
--- NOTE | 2018-03-02 12:41 | GI REPORT ---
Patient Name: Zahida Hansen Procedure Date: 03/02/2018 11:51 AM Date of : 1950 Admit Type: Outpatient Age: 67 Gender: Female Attending MD: Ion Hardwick DO Procedure: Upper GI endoscopy Providers: Ion Hardwick DO Referring MD: Chacha Dumont Indications: Suspected gastro-esophageal reflux disease, Chest pain (non cardiac) Medicines: Monitored Anesthesia Care Complications: No immediate complications. Estimated Blood Loss: Estimated blood loss: none. Procedure: Pre-Anesthesia Assessment: - Prior to the procedure, a History and Physical was performed, and patient medications and allergies were reviewed. The patient's tolerance of previous anesthesia was also reviewed. The risks and benefits of the procedure and the sedation options and risks were discussed with the patient. All questions were answered, and informed consent was obtained. Prior Anticoagulants: The patient has taken aspirin, last dose was 1 day prior to procedure. ASA Grade Assessment: III - A patient with severe systemic disease. After reviewing the risks and benefits, the patient was deemed in satisfactory condition to undergo the procedure. After obtaining informed consent, the endoscope was passed under direct vision. Throughout the procedure, the patient's blood pressure, pulse, and oxygen saturations were monitored continuously. The On-site loaner was introduced through the mouth, and advanced to the second part of duodenum. The upper GI endoscopy was accomplished without difficulty. The patient tolerated the procedure well. Findings: The examined esophagus was normal. There was a questionable narrowing in the distal esophagus, and a TTS dilator was passed through the scope. Dilation with an 18-19-20 mm balloon dilator was performed to 20 mm. The dilation site was examined and showed no change. The stomach was normal. The examined duodenum was normal. Impression: - Normal esophagus. Dilated. - Normal stomach. - Normal examined duodenum. - No specimens collected. Recommendation: - Resume previous diet. - Continue present medications. - Return to primary care physician as previously scheduled. Ion Hardwick DO 03/02/2018 12:41:41 PM This report has been signed electronically. Note Initiated On: 03/02/2018 11:51 AM Number of Addenda: 0 I attest to the content of the Intraoperative Record and orders documented therein, exceptions below {[id number]}
--- NOTE | 2018-03-02 12:52 | Anesthesiology Progress Note ---
Anesthesia Post Op Note Date & Time Mar 02, 2018 at 12:52 Vital Signs Pain Intensity: 0 Vital Signs Past 12 Hours Date Time Temp Pulse Resp B/P (MAP) Pulse Ox O2 Delivery O2 Flow Rate FiO2 03/02/18 12:33 73 18 119/71 (87) 94 Room Air 03/02/18 11:30 36.5 67 18 150/112 (125) 96 Room Air Notes Mental Status: alert / awake / arousable, participated in evaluation Pt Amnestic to Procedure: Yes Nausea / Vomiting: adequately controlled Pain: adequately controlled Airway Patency, RR, SpO2: stable & adequate BP & HR: stable & adequate Hydration State: stable & adequate Anesthetic Complications: no major complications apparent
[2018-03-02 13:03] VITALS: BP 146/71; PULSE 63; O2SAT 93
== END | disposition home or self-care (01) ==
LOC: C.GI 10:19
PROVIDERS: ATTEND Internal Medicine
DX: R07.89 Other chest pain (principal); K21.9 Gastro-esophageal reflux disease without esophagitis; E11.9 Type 2 diabetes mellitus without complications; M19.90 Unspecified osteoarthritis, unspecified site; Z86.718 Personal history of other venous thrombosis and embolism; Z91.040 Latex allergy status; Z91.041 Radiographic dye allergy status; Z88.2 Allergy status to sulfonamides; Z88.6 Allergy status to analgesic agent; Z91.011 Allergy to milk products; Z79.82 Long term (current) use of aspirin; Z90.49 Acquired absence of other specified parts of digestive tract; Z90.710 Acquired absence of both cervix and uterus; Z80.0 Family history of malignant neoplasm of digestive organs

== ENCOUNTER → 2018-03-09 | Outpatient (CLI) | payer BC, OTHER ==
[~2018-03-09] MED LIST changes: -LIDOCAINE HCL 2% 2 ML VIAL (20MG/ML) ONE; -PROPOFOL IV EMULSION 10 MG/ML 20 ML VIAL IV ONE; -SODIUM CHLORIDE 0.9% 500ML 500 ML IV ONE
== END | disposition home or self-care (01) ==
LOC: C.LABMFLN 11:19
PROVIDERS: ATTEND Family Medicine
DX: N39.0 Urinary tract infection, site not specified (principal); N30.00 Acute cystitis without hematuria

== ENCOUNTER → 2018-03-17 | Outpatient (CLI) | payer BC, OTHER ==
--- NOTE | 2018-03-17 10:29 | DIAGNOSTIC IMAGING REPORT ---
SOFT TISS HEAD/NECK-THYROID HISTORY: Thyroid nodule THYROID NODULE COMPARISON: None. FINDINGS: Right lobe: Maximum linear dimension 4.5 cm. Several small hypoechoic nodules measuring up to 6 mm. Left lobe: Maximum linear dimension 4.5 cm. Dominant nodule mid pole measuring 2.6 x 1.5 cm. Remainder the left thyroid shows mild in homogeneity throughout. Isthmus: No nodules. IMPRESSION: 1. Slightly hypoechoic somewhat poorly defined nodular density mid to lower aspect left thyroid measuring 2.6 x 1.5 cm. 2. Fine-needle aspiration with ultrasound guidance is suggested. 3. Remainder of the thyroid shows diffuse heterogeneity with a multinodular configuration. The above report was generated using voice recognition software. It may contain grammatical, syntax or spelling errors. Electronically signed by: Shine Chen M.D. 03/17/2018 10:27 AM Dictated Date/Time: 03/17/2018 10:19 AM
== END | disposition home or self-care (01) ==
LOC: C.ULTR 09:52
PROVIDERS: ATTEND Internal Medicine Endocrinology, Diabetes & Metabolism
DX: E04.1 Nontoxic single thyroid nodule (principal)

== ENCOUNTER → 2018-03-20 | Outpatient (CLI) | payer BC, OTHER ==
[2018-03-20 13:33] LABS: HEMOGLOBIN A1C 8.7 % (4.5-5.6)
[2018-03-20 13:36] LABS: ALBUMIN 3.6 gm/dl (3.4-5.0); ALKALINE PHOSPHATASE 85 U/L (45-117); ALT/SGPT 42 U/L (12-78); AST/SGOT 30 U/L (15-37); BLOOD UREA NITROGEN 18 mg/dl (7-18); CALCIUM 9.2 mg/dl (8.5-10.1); CARBON DIOXIDE 24 mmol/L (21-32); CREATININE 1.05 mg/dl (0.60-1.20); GLUCOSE 157 mg/dl (70-99); POTASSIUM 3.8 mmol/L (3.5-5.1); SODIUM 141 mmol/L (136-145); TOTAL PROTEIN 7.8 gm/dl (6.4-8.2)
[2018-03-20 13:37] LABS: CHOLESTEROL 137 mg/dl (0-200); LDL CHOLESTEROL CALCULATED 59 mg/dl
== END | disposition home or self-care (01) ==
LOC: C.LABMFLN 10:37
PROVIDERS: ATTEND Internal Medicine Endocrinology, Diabetes & Metabolism
DX: E11.65 Type 2 diabetes mellitus with hyperglycemia (principal)

== ENCOUNTER → 2018-03-29 | Outpatient (CLI) | payer BC, OTHER ==
--- NOTE | 2018-03-29 12:06 | DIAGNOSTIC IMAGING REPORT ---
ULTRASOUND GUIDED FINE NEEDLE ASPIRATION OF LEFT LOBE THYROID NODULE CLINICAL HISTORY: GOITER COMPARISON STUDY: Thyroid ultrasound March 17, 2018. PROCEDURE: Sonography of the thyroid gland again demonstrated a 2.6 cm nodule within the mid to lower pole the left lobe which was targeted for fine needle aspiration. The procedure, risks and benefits were discussed with the patient and informed written consent was obtained. The procedure was performed by Dr. Casas following a timeout. Skin was prepped and draped in sterile fashion and local anesthesia was achieved with 1% lidocaine. Under direct ultrasound guidance, 4 25-gauge fine needle aspirations were performed. Samples were preliminarily adequate by pathology. Patient tolerated the procedure well and no immediate complications were evident. IMPRESSION: Ultrasound guided fine needle aspiration of a 2.6 cm left lobe thyroid nodule. Electronically signed by: Bakari Casas M.D. 03/29/2018 12:04 PM Dictated Date/Time: 03/29/2018 12:03 PM
== END | disposition home or self-care (01) ==
LOC: C.ULTR 10:37
PROVIDERS: ATTEND Internal Medicine Endocrinology, Diabetes & Metabolism
DX: E04.2 Nontoxic multinodular goiter (principal)

== ENCOUNTER 2020-06-12 09:48 | Observation (INO) ==
[~2020-06-12 09:48] MED LIST changes: -ALPH100T PO; -ASPI81TA28 PO; +BACITRACIN INJ 50,000 UNIT VIAL ONE; -BIOT1TAB5 PO; +BUPIVACAINE 0.25% 30 ML VIAL ONE; -CHOL400C7 PO; -CRAN450T3 PO; -DICL1GEL12 TOP; -DOCU-94 PO; -DULA1INJ INJ; -FRS/40 PO; -GABA-113 PO; -GLIP-197 PO; +LIDOCAINE HCL 1% 20 ML VIAL ONE; -LOSA50TA6 PO; -METO50TA8 PO; -NTRGSL/4 UT; -NXM/40 PO; -PRAV10TA39 PO; -PYRI100T4 PO; -RANI150T85 PO; -SPR25 PO; -SYMIN160 INH
[2020-06-12] MEDS ORDERED: MIDAZOLAM HCL 5 MG/ML 1 ML VIAL ONE ×2 (10:15→11:15)
[2020-06-12] MEDS ORDERED: fentaNYL citrate 100 MCG/2 ML VIAL ONE ×2 (10:15→11:09)
[2020-06-12] MEDS ORDERED: CEFAZOLIN 250 MG/ML 1 GM VIAL ONE (10:15)
--- NOTE | 2020-06-12 12:05 | Post Anesthesia Assessment ---
Date of Service June 12, 2020 Post Sedation Assessment Vital Signs Temp Pulse Resp BP Pulse Ox 06/12/20 12:00 36.7 C 103 H 18 138/88 94 06/12/20 10:08 36.7 C 96 H 18 159/110 H 98 Recovery Score Activity: Moves 4 extremities Respiration: Deep Breath/Cough Circulation: +/-20% PreAnes Value Consciousness: Fully Awake Oxygen Saturation: > 92% On Room Air Post Anesthesia Score: 10 Discharge Sedation Level of Care: Fast Track Phase II Post Sedation Plan On clinical assessment, the patient appears to have tolerated the sedation without complications. Patient is recovering as anticipated. Patient will continue to be monitored by nursing and may be discharged when sedation discharge criteria are met per below protocol. Upon Completions of procedure up to 15 minutes continue every 5 minute vital signs and the P.A.R. score; then discharge to a Phase I or Fast Track to Phase II per the following guidelines: * Discharge Patient to appropriate Phase II area if PAR is 8 or greater or return to pre- procedure baseline. The post - procedure orders will be as directed. * If PAR score is less than 8 or not return to pre-procedure baseline then patient will follow Phase I monitoring till PAR is reached for Phase II. The Phase I may be done in procedure room or may call to secure a Phase I area. * If naloxone or flumazenil are used for reversal, hold in Phase I for continue d monitoring from when last reversal dose was given for a minimum of 60 minutes or longer pending the nurse and/or physician discretion of patient condition before discharge to Phase II. Please call the Sedation Physician to re-evaluate and complete post-note for discharge to Phase II area. Do NOT discharge from procedure sedation or Phase 1 until post- sedation evaluation note is complete by procedure /sedation MD Sedation Discharge Instructions to be given to the patient at discharge to home.
--- NOTE | 2020-06-12 12:08 | Electrophysiology Report ---
Date of Service June 12, 2020 Electrophysiology Procedure Electrophysiology Procedure Report Procedure performed: Implantation of biventricular ICD Staff sheet metal supervisor: Manish Mandujano MD Indication: The patient is a 69-year-old woman with a history of nonischemic cardiomyopathy. She continues to have [place] Heart Association class III symptoms with an ejection fraction of 35% or less. She is on optimal medical therapy. He has not had a revascularization in last 90 days nor suffered a myocardial infarction in the past 40 days. She has an anticipated longevity greater than 1 year. As such he is felt be a good candidate for an ICD as primary prevention against sudden cardiac . Additionally, the patient has a wide QRS complex on EKG with left bundle branch block pattern. Based on her symptoms and EKG findings she is felt be a good candidate for a biventricular ICD. Procedure in detail: The patient was informed of the risks benefits and alternatives to the intended procedure and she wished to proceed. She was taken to the electrophysiology suite in a fasting state. A preoperative antibiotic had been administered. The patient was monitored electrocardiographically throughout today's procedure and conscious sedation was administered per protocol. The left upper pectoral area is prepped and draped in usual sterile fashion. This area was anesthetized using subcutaneous administration of a xylocaine solution. An incision was made at this site and carried down to the prepectoralis fascia using sharp dissection. Electrocautery was also employed for dissection as well as for hemostasis. A device pocket was fashioned tissues above the pectoralis muscle. Subsequent to this maneuver the left axillary vein was accessed using modified Seldinger technique. Sheaths were placed over guidewires at this site and used to facilitate passage of the pacing leads to the respective chambers under fluoroscopic guidance. This included right atrial and right ventricular leads. Adequate sensing and threshold parameters were obtained prior to Active fixation of the leads to the endocardial surface. The proximal portion leads were then sutured the prepectoral fascia using nonabsorbable suture. A third sheath was placed over a guidewire and used to facilitate passage of a guiding sheath for engagement of the coronary sinus. Once a coronary sinus was engaged limited coronary sinus venography was performed in order to identify a suitable target vessel for the lead. Standard guidewire techniques were then employed to deliver the lead to the target vessel. Adequate sensing and threshold parameters were obtained in the absence of diaphragmatic stimulation at high output was confirmed prior to removal of the guiding sheath. Proximal portion of lead was then sutured to the prepectoral/using nonabsorbable suture. The device pocket was irrigated with antibiotic solution. The leads were then attached to the device. The device and leads were then placed in the pocket and pocket was closed in 3 layers of absorbable suture. Steri-Strips and sterile dressing were applied. The device was tested noninvasively prior to conclusion the procedure. The patient tolerated procedure well there no immediate complications. Equipment used: New pulse generator: Help [employer]k [employer]st [employer]. Model number: [id number] serial number [id number] Right atrial lead: Help Desk [employer]st Medtronic. Model number: 5076. Serial number [id number] Right ventricular lead: Help Desk [employer]st Medtronic. Model number: 693 5 mm serial number [id number] Left ventricular lead: Help [employer]k [employer]st [employer]. Model #4298 serial number [id number] Measured data: Right atrial lead: P waves measure 3.6 mV. Pacing thresholds 0.4 V 0.5 ms with a pacing impedance of 651 ohms Right ventricular lead: R waves measured 7.1 mV. Pacing threshold 0.6 V at 0.5 ms with a pacing impedance of 666 ohms Left ventricular lead: Pacing threshold in the LV to the LV 3 configuration was 0.5 V 0.5 ms with a pacing impedance of 738 ohms Impression: Successful implantation of biventricular ICD MN[facility] Electrophysiology codes Pacing Procedure 1: Pacin BiV electrode w/Pacer / ICD implant, add on code ICD Procedure 1: ICD: 19424 Insert single or dual ICD system PG Moderate Sedation Codes Moderate Sedation Codes Procedure 1: Sedation/Anesthesia: 98886 Mod Sedation by the same physician;Init15 Min Child Age 5 & Up Procedure 2: Sedation/Anesthesia: 75844 Mod Sedation by the same physician; Ea [id number] Minutes
--- NOTE | 2020-06-12 12:29 | XRay Report ---
XR chest 1V not portable HISTORY: 69 years-old Female r/o PTX. Upright exam please status post placement of a left subclavian pacer/ICD COMPARISON: Chest radiographs 08/27/2019 TECHNIQUE: PA view of the chest FINDINGS: Moderate cardiomegaly. Left subclavian pacer/AICD has been placed. The leads appear intact. No postpr ocedural pneumothorax identified. Calcified plaque the thoracic aortic arch. No pleural effusion, ove rt pulmonary edema or airspace consolidation typical for pneumonia. IMPRESSION: Status post placement of a left subclavian pacer/AICD. No postprocedural pneumothorax. ACT 112: Negative or not required by law. The above report was generated using voice recognition software. It may contain grammatical, syntax o r spelling errors. Electronically signed by: Neptali Mauricio M.D. 06/12/2020 12:27 PM
[2020-06-12] MEDS ORDERED: ACETAMINOPHEN 325 MG TAB ONE (14:46)
[2020-06-12] MEDS ORDERED: PRAVASTATIN SOD 10 MG TAB PO SCH (17:00)
[2020-06-12] MEDS: glipiZIDE 5 MG TAB PO SCH (17:20)
[2020-06-12] MEDS: HYDROCODONE/ACETAMOPHEN 5/325MG TAB PO PRN ×2 (17:21→21:01)
[2020-06-12] MEDS: GABAPENTIN 300 MG CAP PO SCH (20:56)
[2020-06-12] MEDS: CEFAZOLIN 1000MG 1,000 MG/7.5 ML SYR IV SCH (21:01)
[2020-06-13] MEDS: HYDROCODONE/ACETAMOPHEN 5/325MG TAB PO PRN (02:57)
[2020-06-13] MEDS: CEFAZOLIN 1000MG 1,000 MG/7.5 ML SYR IV SCH ×2 (03:01→11:31)
[2020-06-13] MEDS: glipiZIDE 5 MG TAB PO SCH (07:48)
--- NOTE | 2020-06-13 08:17 | XRay Report ---
XR chest 2V PA/lateral CLINICAL HISTORY: EXACT TIME ORDERED Evaluate for pneumothorax and l the placement COMPARISON STUDY: 06/12/2020 FINDINGS: Bipolar cardiac pacer with leads in good position. No evidence for pneumothorax. Lungs are clear. IMPRESSION: Leads remain in good position. No evidence for pneumothorax. The lungs are clear. ACT 112: Negative or not required by law. The above report was generated using voice recognition software. It may contain grammatical, syntax or spelling errors. Electronically signed by: Shine Chen M.D. 06/13/2020 8:16 AM
[2020-06-13] MEDS: GABAPENTIN 300 MG CAP PO SCH (08:52)
[2020-06-13] MEDS ORDERED: FLUTICASONE/VILANTEROL 200/25MCG 14 PUFFS/INHALER INH SCH (09:00)
[2020-06-13] MEDS ORDERED: LOSARTAN POTASSIUM 25 MG TAB PO SCH (09:00)
[2020-06-13] MEDS ORDERED: ASPIRIN 81 MG ECTAB PO SCH (09:00)
[2020-06-13] MEDS ORDERED: METOPROLOL SUCC 50MG EXT REL TAB PO SCH (09:00)
[2020-06-13] MEDS ORDERED: FUROSEMIDE 40 MG TAB PO SCH (09:00)
[2020-06-13] MEDS ORDERED: ONDANSETRON INJ 2 MG/ML 2 ML VIAL IV PRN (09:16)
--- NOTE | 2020-06-13 10:48 | Discharge Summary ---
Date of Service June 13, 2020 Admission HPI Per Admitting Provider 69-year-old woman with history of nonischemic cardiomyopathy in the bundle- branch Principal Diagnosis q Discharge Exam implant site with some mild ecchymosis but no drainage, hematoma or significant erythema. Discharge Data Allergies Allergy/AdvReac Type Severity Reaction Status Date / Time Corticosteroids Allergy Intermediate Redness of Verified 06/12/20 10:22 (Glucocorticoids) Skin dulaglutide [From Trulicity] Allergy Intermediate Abdominal Verified 06/12/20 10:22 Pain egg Allergy Intermediate Unknown Verified 06/12/20 10:22 ibuprofen [From Nuprin] Allergy Intermediate Swelling Verified 06/12/20 10:22 of the Eye Iodinated Contrast Media Allergy Intermediate Redness of Verified 06/12/20 12:39 Skin lansoprazole [From Prevacid] Allergy Intermediate Hives Verified 06/12/20 10:22 Proton Pump Inhibitors Allergy Intermediate Redness of Verified 06/12/20 10:22 Skin ragweed pollen Allergy Intermediate Congested Verified 06/12/20 10:22 soy Allergy Intermediate Flushing Verified 06/12/20 10:22 strawberry Allergy Intermediate Hives Verified 06/12/20 10:22 albiglutide [From Tanzeum] Allergy Mild Unknown Verified 06/12/20 10:22 metformin Allergy Mild Unknown Verified 06/12/20 10:22 wheat Allergy Mild Unknown Verified 06/12/20 10:22 phenazopyridine Allergy Unknown Unknown Verified 06/12/20 10:22 amiodarone Allergy vision loss Verified 06/12/20 10:22 nickel Allergy Rash Verified 06/12/20 10:22 Bactrim AdvReac Intermediate "DEATHLY Verified 02/22/18 13:08 ILL" SEVERE N/V NSAIDS (Non-Steroidal AdvReac Intermediate Gastrointestinal Verified 06/12/20 10:22 Anti-Inflamma Upset sulfamethoxazole AdvReac Intermediate "DEATHLY Verified 06/12/20 10:22 ILL" SEVERE N/V trimethoprim AdvReac Intermediate "DEATHLY Verified 06/12/20 10:22 ILL" SEVERE N/V acetaminophen [From Percocet] AdvReac Mild Gastrointestinal Verified 06/12/20 10:22 Upset milk AdvReac Mild Unknown Verified 06/12/20 10:22 naproxen [From Aleve] AdvReac Mild Gastrointestinal Verified 06/12/20 10:22 Upset oxycodone [From Percocet] AdvReac Mild Gastrointestinal Verified 06/12/20 10:22 Upset tramadol [From Ultram] AdvReac Mild Gastrointestinal Verified 06/12/20 10:22 Upset Procedures Performed Operation Date: 06/12/20 11:00 Actual Procedures p ICD Insertion Single or Dual(Right) - Jordan Mandujano MD s Upgrade of any system to BIV - Jordan Mandujano MD Ordered Studies 06/12/20 10:30 EP Lab Images for PACS ONCE Hospital Course (1) Cardiomyopathy, nonischemic: Lab data admission the patient underwent implantation of a Medtronic biventricular ICD. Procedure was uncomplicated. The remainder of her hospitalization was unremarkable. The day of discharge she had mild discomfort at the implant site. No evidence of complication. Chest x-ray was normal without evidence of pneumothorax. Lead position was stable. Interrogation of her device revealed good function on all 3 leads. Total Time Total Time Spent Total Time Spent (In Minutes): 10 Total Time Includes: Examination of the Patient, Medication Reconciliation and Other Discharge Plan Discharge Items Patient Disposition: Home - Self-Care Reason For Visit: BIV ICD Discharge Diagnosis: cardiomyopathy Activity: Per Instructions section Activity Comment: no lifting left arm above shoulder behind neck for 6 weeks Lifting: No more than 10 pounds Bathing: Keep incision dry Bathing Comment: keep wound dry Steri-Strips intact until follow-up next week Driving/Machine Use: Resume 1 day after discharge Non-emergency contact: Insurance Administrative Assistant Call non-emergency contact if: your pain is worsening, you have a fever, your wound has increased redness, your wound has increased drainage and your wound pain has increased Follow-up/Referrals: Rafael Mcdaniel MD [Primary Care Provider] - Diet: Carb Consistent or DM2 and Heart Healthy Addtl Attending Provider Instructions: none Pending Studies at Discharge: No Stand-Alone Forms: My [employer], Smoking Cessation Medications and DC Order Prescriptions: Continued furosemide 40 mg tablet 40 mg PO DAILY Qty: 90 RF: 3 (DME) blood-glucose meter [OneTouch Ultra2 Meter] Misc See Rx Instructions .ROUTE .MEDSUPPLY Qty: 1 RF: 0 (DME) blood sugar diagnostic [OneTouch Ultra Blue Test Strip] Strip See Rx Instructions .ROUTE .MEDSUPPLY Qty: 100 RF: 1 losartan 25 mg tablet 25 mg PO DAILY Qty: 30 RF: 2 (DME) lancets [FreeStyle Lancets] 28 gauge misc See Rx Instructions .ROUTE .MEDSUPPLY Qty: 100 RF: 2 pravastatin 10 mg tablet 10 mg PO DAILY Qty: 90 RF: 1 Ozempic 0.25 mg or 0.5 mg(2 mg/1.5 mL) pen injector 0.5 mg SQ .weekly Qty: 1.5 RF: 4 Metamucil [facility] Fiber 3.4 gram/5.8 gram powder 3.4 gm PO DAILY Qty: 660 RF: 4 gabapentin 300 mg capsule 300 mg PO BID Qty: 180 RF: 1 fluticasone propionate 50 mcg/actuation spray,suspension 2 sprays intranasal DAILY Qty: 47.4 RF: 3 chlorpheniramine maleate 4 mg tablet 4 mg PO Q12H Qty: 180 RF: 3 Symbicort 160-4.5 mcg/actuation HFA aerosol inhaler 2 puff INHALATION BID Qty: 10.2 RF: 3 glipizide 5 mg tablet extended release 24hr 5 mg PO BID Qty: 180 RF: 3 metoprolol succinate 50 mg tablet extended release 24 hr 50 mg PO DAILY Qty: 90 RF: 3 omeprazole 40 mg capsule,delayed release(DR/EC) 40 mg PO DAILY Qty: 30 RF: 5 polyethylene glycol 3350 17 gram/dose powder 17 gm PO DAILY Qty: 510 RF: 3 diclofenac sodium 1 % gel 2 gm TOPICAL QID Qty: 100 RF: 3 aspirin [Aspirin Low Dose] 81 mg tablet,delayed release (DR/EC) 81 mg PO DAILY Qty: 90 RF: 3 cefdinir 300 mg capsule 300 mg PO BID RF: 0 Discharge Orders: Discharge Order (Routine); Ordered 06/13/20 Ordered By: Jordan Mandujano Admission Data Admit Date/Time: 06/12/20 11:17 Attending Provider: Jordan Mandujano Admit Provider: Jordan Mandujano Primary Care Provider: Rafael Mcdaniel Coding Level of Care Code 03561 OBS Care - Discharge Diagnoses Cardiomyopathy, nonischemic I42.8
== END 2020-06-13 11:45 | disposition home or self-care (01) ==
LOC: EP 09:48 → 2S 09:48
PROC: EPB.ICD (2020-06-12 11:00)

== ENCOUNTER 2024-08-14 10:35 | Inpatient (IN) ==
--- NOTE | 2024-08-10 13:48 | Anesthesiology Consultation ---
Date of Service August 10, 2024 Assessment & Plan (1) Encounter for pre-operative examination: Chart Review Chart Review: Acceptable Risk for Surgery and Patient NOT seen in Pre Admission Testing - Check BSG AM DOS -Infectious Disease screening: Per PAT nursing assessment on 08/10/24. No known infectious disease contacts in past 10 days or current infectious disease symptoms. No recent travel outside the country. Patient seen by PCP 08/09/24= seen fpr preop evaluation. Scheduled for Fx fibula dital ORIF 08/14/24 Fell in closet 08/02/24. At baseline walks with a cane. Awaiting preop testing. Addendum 08/09/24= Patient is acceptable risk for surgery Patient seen by cardio 08/07/24= Nonischemic cardiomyopathy: Mildly reduced LV systolic function on echocardiogram performed [facility] last year. She seems well compensated overall. Continue current medical therapy, including loop diuretic, SGLT2 inhibitor, and beta jesse therapy. Left bundle branch block status post implant of biventricular ICD: Follows with Dr. Mandujano. Frequent PVCs: Asymptomatic. No ectopy on exam today. Continue Ranexa. Preop eval: Acceptable risk to proceed with upcoming orthopedic surgery without any additional cardiovascular testing or intervention. History Surgery Operation Date: 08/14/24 12:15 Proposed Procedures p Right Ankle Fracture Distal Fibula Open Reduction Internal Fixation - Tejinder Fuentes DO Height/Weight Height: 5 ft 4 in Weight: 78.471 kg Allergies Allergy/AdvReac Type Severity Reaction Status Date / Time amiodarone Allergy Severe vision loss Verified 08/10/24 10:02 tirzepatide [From Mounjaro] Allergy Severe Swelling Verified 08/10/24 10:02 of Lip/Tongue/Throat Corticosteroids Allergy Intermediate Redness of Verified 08/10/24 10:02 (Glucocorticoids) Skin dulaglutide [From Trulicity] Allergy Intermediate Abdominal Verified 08/10/24 10:02 Pain egg Allergy Intermediate Unknown Verified 08/10/24 10:02 ibuprofen [From Nuprin] Allergy Intermediate Swelling Verified 08/10/24 10:02 of the Eye Iodinated Contrast Media Allergy Intermediate Redness of Verified 08/10/24 10:02 Skin lansoprazole [From Prevacid] Allergy Intermediate Hives Verified 08/10/24 10:02 latex Allergy Intermediate Hives Verified 08/10/24 10:02 Proton Pump Inhibitors Allergy Intermediate Redness of Verified 08/10/24 10:02 Skin ragweed pollen Allergy Intermediate Congested Verified 08/10/24 10:02 soy Allergy Intermediate Flushing Verified 08/10/24 10:02 strawberry Allergy Intermediate Hives Verified 08/10/24 10:02 vaccine adjuvant system, Allergy Intermediate swelling Verified 08/10/24 10:02 AS01B liposomal of arm [From Shingrix ()] varicella-zoster virus Allergy Intermediate swelling Verified 08/10/24 10:02 glycoprotein E, recombinant of arm [From Shingrix (PF)] albiglutide [From Tanzeum] Allergy Mild Unknown Verified 08/10/24 10:02 metformin Allergy Mild Unknown Verified 08/10/24 10:02 nickel Allergy Mild Rash Verified 08/10/24 10:02 wheat Allergy Mild Unknown Verified 08/10/24 10:02 phenazopyridine Allergy Unknown Unknown Verified 08/10/24 10:02 Bactrim AdvReac Intermediate "DEATHLY Verified 02/22/18 13:08 ILL" SEVERE N/V ibandronate sodium AdvReac Intermediate GERD severe Verified 08/10/24 10:02 NSAIDS (Non-Steroidal AdvReac Intermediate Gastrointestinal Verified 08/10/24 10:02 Anti-Inflamma Upset sulfamethoxazole AdvReac Intermediate "DEATHLY Verified 08/10/24 10:02 ILL" SEVERE N/V trimethoprim AdvReac Intermediate "DEATHLY Verified 08/10/24 10:02 ILL" SEVERE N/V milk AdvReac Mild Unknown Verified 08/10/24 10:02 naproxen [From Aleve] AdvReac Mild Gastrointestinal Verified 08/10/24 10:02 Upset oxycodone [From Percocet] AdvReac Mild Gastrointestinal Verified 08/10/24 10:02 Upset tramadol [From Ultram] AdvReac Mild Gastrointestinal Verified 08/10/24 10:02 Upset Biphosphonate AdvReac Mild Severe GI Uncoded 08/10/24 10:02 upset Medications Home Medications Medication Instructions Recorded Confirmed Last Taken blood sugar diagnostic (OneTouch #100 ea 04/18/20 08/09/24 Unknown Ultra Blue Test Strip) blood-glucose meter (OneTouch #1 ea 04/18/20 08/09/24 Unknown Ultra2 Meter) triamcinolone acetonide 0.1 % 1 applic topical BID PRN Rash 06/17/21 08/10/24 Unknown topical cream cranberry 500 mg capsule 500 mg PO QAM 05/28/22 08/10/24 Unknown lancets 28 gauge (FreeStyle #100 ea 08/08/23 08/09/24 Unknown Lancets) amoxicillin 500 mg tablet 2,000 mg (4 x 500 mg) PO ONCE #12 08/15/23 08/10/24 Unknown tabs ranolazine 500 mg tablet,extended See Rx Instructions PO BID #270 10/17/23 08/10/24 Unknown release,12 hr tabs metoprolol succinate 50 mg 50 mg PO BID #180 tabs 10/29/23 08/10/24 Unknown tablet,extended release 24 hr pen needle, diabetic 32 gauge x #100 ea 12/09/23 08/09/24 Unknown 5/32" (BD Ultra-Fine Vicky Pen Needle) hydroxyzine HCl 25 mg tablet 25 mg PO HS PRN itching #30 tabs 01/24/24 08/10/24 Unknown mometasone 50 mcg/actuation nasal 2 spray intranasal HS #17 grams 01/24/24 08/10/24 Unknown spray (Nasonex 24hr Allergy) potassium chloride 10 mEq 10 meq PO QAM 01/30/24 08/10/24 Unknown capsule,extended release rosuvastatin 10 mg tablet (Crestor) 10 mg PO .Mon, Wed and Fri #45 tabs 02/08/24 08/10/24 Unknown blood sugar diagnostic (FreeStyle #100 ea 05/16/24 08/09/24 Unknown Lite Strips) vitamin d with K2 See Rx Instructions PO DAILY 06/05/24 08/10/24 Unknown insulin glargine 100 unit/mL (3 See Rx Instructions subcut HS #4 06/25/24 08/10/24 Unknown mL) subcutaneous pen (Basaglar SYRINGES KwikPen U-100 Insulin) B-complex with vitamin C 1 cap PO DAILY #90 caps 07/30/24 08/10/24 Unknown tamsulosin 0.4 mg capsule 0.4 mg PO HS PRN kidney stone #10 07/30/24 08/10/24 Unknown caps empagliflozin 10 mg tablet 10 mg PO DAILY #30 tabs 07/31/24 08/10/24 Unknown (Jardiance) naloxone 4 mg/actuation nasal spray 4 mg intranasal Q3M PRN opioid 08/03/24 08/10/24 Unknown overdose #2 ea ondansetron 4 mg disintegrating 4 mg PO Q8H PRN nausea and 08/03/24 08/10/24 Unknown tablet vomiting #30 tabs aspirin 81 mg tablet,delayed 162 mg PO QAM 08/10/24 08/10/24 Unknown release cetirizine 10 mg tablet 10 mg PO QAM 08/10/24 08/10/24 Unknown cholestyramine (with sugar) 4 gram 4 g PO BID 08/10/24 08/10/24 Unknown oral powder (Questran) fluticasone furoate 100 1 inh inhalation DAILY PRN 08/10/24 08/10/24 Unknown mcg-vilanterol 25 mcg/dose Congestion inhalation powder (Breo Ellipta) furosemide 20 mg tablet 20 mg PO QAM 08/10/24 08/10/24 Unknown omeprazole 40 mg capsule,delayed 40 mg PO QAM 08/10/24 08/10/24 Unknown release Additional Notes: Has not yet started Jardiance per PAT nursing interview 08/10/24- does not plan on starting Jardiance until after surgery Past Medical History Medical History Asthma well controlled, rare inh use Atrial fibrillation dx 2018 > s/p pacer Biventricular ICD (implantable cardioverter-defibrillator) in place Due to LBBB per cardio records Bursitis, shoulder left Cardiomyopathy, nonischemic well compensated per 08/07/24 cardio note EF 45-49% per 09/2023 ECHO CHF (congestive heart failure) Diabetes mellitus, type 2 Frequent PVCs Follows with cardio GERD (gastroesophageal reflux disease) History of kidney stones also one still present to left Hx of deep venous thrombosis remote hx, from an injury Hx of migraines now resolved with injections Hx: UTI (urinary tract infection) last one April 2024 > no symptoms at present Hyperlipidemia Hypertension Hyperthyroidism No meds noted TSH WNL 08/2023 IBS (irritable bowel syndrome) LBBB (left bundle branch block) s/p ICD Neuropathy Vertigo any time when lying flat Past Family History Family History Mother Myocardial infarction CHF (congestive heart failure) Hypertension Father Hypertension Diabetes Colorectal cancer Coronary heart disease Son Ulcerative colitis Unknown Heart disease Nephrolithiasis Lung cancer Aunt Breast cancer Sister Lung cancer Denies family history of Ovarian cancer Prostate cancer Past Surgical History Surgical History History of ankle surgery left History of appendectomy History of bladder surgery History of cardiac cath 2018 > no stents History of cataract surgery bilat History of cholecystectomy History of colonoscopy History of esophagogastroduodenoscopy (EGD) History of hysterectomy History of lithotripsy History of permanent cardiac pacemaker placement 2019 > Medtronic > Afib > follows with Dr. Mandujano > last checked spring 2023 Hx of laminectomy pt unaware of this > denies Social History Smoking Status: Never smoker Do You Dip or Chew Tobacco: No Hx Alcohol Use: No Alcohol type: wine alcohol intake frequency: holidays/special occasions only Hx Substance Use: No substance use type: does not use Lab Results Anesthesia Preop Results Results Anesthesia Widget: WBC 6.23 K/ul (4.8-10.8) 08/09/24 Hgb 13.1 g/dl (12.0-16.0) 08/09/24 Hct 39.2 % (37.0-47.0) 08/09/24 Plt 235 K/uL (130-400) 08/09/24 Na 135 mmol/L (136-145) L 08/09/24 K 4.0 mmol/L (3.5-5.1) 08/09/24 Cl 102 mmol/L (98-107) 08/09/24 CO2 26 mmol/L (21-32) 08/09/24 BUN 19 mg/dl (6-23) 08/09/24 Creat 0.96 mg/dl (0.6-1.2) 08/09/24 Glucose Level 257 mg/dl (70-99(Fasting)) H 08/09/24 PT 10.8 Seconds (9.0-12.0) 08/09/24 INR 1.0 (0.9-1.1) 08/09/24 HA1c 8.4 % (4.5-5.6) H 07/30/24 Testing Electrocardiogram Date: 08/09/24 Electronic ventricular pacemaker at 69bpm Unchanged from 09/14/23 per confirming provider Chest X-Ray Date: 09/14/23 Findings: + NAD Echocardiogram Date: 09/15/23 EF: 45-49% LV Function: dysfunctional Other Findings: no LVH "Bubble study" is negative for right to left intracardiac shunt Mild diffuse HK Mild MR. Mild TR. Mild SD Interatrial septum is intact without interatrial shunt, ASD, or PFO There is an atrial septal aneurysm. No evidence of pulm HTN When compared to prior study from 2018, there is now a pacemaker and EF is mildly reduced Other Testing Pacer/ICD check 07/07/24= Medtronic device. Normal battery parameters - 5.7 years. Mode DDD. AP 9.8%. CRTp: 98.4%. Markers suggest nsSVT, longest 6 seconds in duration. Normal device function Good pacing percentage. No events or theraies. OptiVol normal but rising
[~2024-08-14 10:35] MED LIST changes: -BACITRACIN INJ 50,000 UNIT VIAL ONE; -BUPIVACAINE 0.25% 30 ML VIAL ONE; -LIDOCAINE HCL 1% 20 ML VIAL ONE; +ROPIVACAINE 0.5% 5 MG/ML 30 ML VIAL ONE; +SODIUM CHLORIDE 0.9% PF INJ 10 ML VIAL ONE
[2024-08-14] MEDS ORDERED: LIDOCAINE 2% 2 ML VIAL/AMP(20MG/ML) INFIL ONE (11:03)
[2024-08-14] MEDS ORDERED: GLYCOPYRROLATE 0.2 MG/ML VIAL ONE (11:03)
[2024-08-14] MEDS ORDERED: ROCURONIUM BROMIDE 10 MG/ML 5 ML VIAL IV ONE (11:03)
[2024-08-14] MEDS ORDERED: ONDANSETRON INJ 2 MG/ML 2 ML VIAL ONE (11:03)
[2024-08-14] MEDS ORDERED: MIDAZOLAM HCL 1 MG/ML 2ML VIAL ONE (11:03)
[2024-08-14] MEDS ORDERED: fentaNYL citrate PF 100 MCG/2 ML VIAL ONE (11:03)
[2024-08-14] MEDS ORDERED: DEXAMETHASONE SOD INJ 4 MG/ML VIAL ONE (11:03)
[2024-08-14] MEDS ORDERED: PROPOFOL IV EMULSION 10 MG/ML 20 ML VIAL IV ONE (11:03)
[2024-08-14] MEDS: LACTATED RINGER'S 1,000 ML IV SCH (11:35)
--- NOTE | 2024-08-14 12:45 | History & Physical Bridge Note ---
Date of Service August 14, 2024 History & Physical Bridge Note I have examined the patient, reviewed the History & Physical and in the interval since the performance of the History & Physical I have noted the following changes of clinical significance: no changes noted Plan for open reduction internal fixation right distal fibula with examination of syndesmosis under anesthesia and fixation as indicated. I explained to the patient once again the risks and benefits of the procedure. Patient understands risk of loss of life or limb, infection, hardware irritation, need for additional surgery, nonunion, malunion, incomplete pain relief. She understands the benefits of improved alignment and stability of the ankle and wishes to proceed. Patient's right lower extremity has been marked and we will proceed to the operating room
[2024-08-14] MEDS: ceFAZolin 2000MG 2,000 MG/15 ML SYR IV SCH (13:01)
[2024-08-14] MEDS ORDERED: ONDANSETRON INJ 2 MG/ML 2 ML VIAL IV PRN (13:19)
[2024-08-14] MEDS ORDERED: ATROPINE SULFATE 0.1 MG/ML 10ML SYR IV PRN (13:19)
[2024-08-14] MEDS ORDERED: DROPERIDOL 5 MG/2 ML VIAL IV PRN (13:19)
--- NOTE | 2024-08-14 14:37 | Fluoroscopy Report ---
FL ankle LT min 3V RTN CLINICAL HISTORY: RT FX ORIF TECHNIQUE: 8 views were obtained with the C-arm in the OR with the above procedure. Total fluoroscopy time was 42.5 seconds. Radiation dose was 1.62 mGy. Comparison: None available at the time of this dictation. FINDINGS/IMPRESSION: Intraoperative images were obtained of open reduction internal fixation of the a nkle. Please correlate with intraoperative fluoroscopy and operative report. ACT 112: Negative or not required by law. Electronically signed by: Abdiaziz Garcia M.D. 08/14/2024 2:36 PM
--- NOTE | 2024-08-14 15:15 | Post Operative Brief Note ---
Immediate Post Op Note Date of Surgery August 14, 2024 Pre & Post Diagnosis Operation Date: 08/14/24 12:15 Pre-Op Diagnosis: Right Ankle Closed Fracture, lateral malleolus Post-Op Diagnosis: Right Ankle Closed Fracture, lateral malleolus I identified the patient and participated in the time-out.: Yes Procedure Operation Date: 08/14/24 12:15 Actual Procedures p Right Ankle Fracture Distal Fibula Open Reduction Internal Fixation(Right) - Tejinder Fuentes DO 2. Stress exam right ankle under anesthesia 3. Physician directed fluoroscopy 4. Application below-knee splint Surgeon Tejinder Fuentes DO Meat Cooler Jessica Spencer Estimated Blood Loss 20 Findings Consistent with Post-Op Diagnosis Hadley B fibula fracture Fluids see anesthesia record Complications none Disposition Accompanied Patient To Recovery: Yes Disposition: Recovery Room Overlapping Procedure I was present for: the critical portions of procedure. (the entire procedure)
[2024-08-14] MEDS: fentaNYL citrate PF 100 MCG/2 ML VIAL IV PRN (15:16)
--- NOTE | 2024-08-14 15:19 | Operative Report ---
Post Operative Report Pre & Post Diagnosis Operation Date: 08/14/24 12:15 Pre-Op Diagnosis: Right Ankle Closed Fracture, lateral malleolus, Post-Op Diagnosis: Right Ankle Closed Fracture, lateral malleolus I identified the patient and participated in the time-out.: Yes Procedure Operation Date: 08/14/24 12:15 Actual Procedures 1. Right ankle fracture open reduction internal fixation lateral malleolus 2. Physician directed fluoroscopy greater than 1 hour 3. Stress exam of the syndesmosis under anesthesia 4. Application below-knee splint p Right Ankle Fracture Distal Fibula Open Reduction Internal Fixation(Right) - Tejinder Fuentes DO Surgeon Tejinder Fuentes DO Surveillance Observer Jessica Spencer Estimated Blood Loss 20 Findings Consistent with Post-Op Diagnosis Hadley B right distal fibula fracture that demonstrated increased medial clear space with stress exam under anesthesia Fluids See anesthesia record Specimens No specimens Drains No drain Complications None immediately apparent Disposition Accompanied Patient To Recovery: Yes Indications This is a 73-year-old female who sustained a fall onto her right lower extremity on 08/02/2024. She was seen in the emergency department at [facility] and was placed into a splint. She presented to the office on 08/06/2024 where stress x-ray of the right ankle demonstrated increased medial clear space. I had a long discussion with the patient and her who joined her in clinic that day with regards to the nature of the injury We discussed in great detail the pathoanatomy, pathophysiology, and treatment options for this. We did perform a stress view in the clinic which demonstrated some medial clear space opening greater than at rest, and as such I explained to the patient that this injury fracture represents a more unstable pattern than a simple Hadley B fracture. Although the measurement of the medial clear space opening is equivocal at about 4.9 mm, you can clearly see the talus shift within the ankle mortise with external rotation stress exam. I did offer the patient both operative and nonoperative care. We discussed these in great detail. I explained that with nonoperative care, we will place the patient into a cast for soft tissue rest and would limit her weightbearing for about 6 weeks. I explained that historically these types of ankle fractures heal reliably, but she does have a risk of posttraumatic osteoarthrosis. I explained that with operative care, she would be nonweightbearing for 6 weeks following surgery, as well, and although she still has a risk of posttraumatic osteoarthrosis, do believe that with an anatomic alignment of the distal fibula the mechanics of the ankle would be best restored. I explained that with surgical management, we would allow her to begin gentle range of motion exercises once the skin incision is healed, and because of the earlier return to range of motion and the hopefully decreased risk of ankle malalignment after operative management, the patient wishes to pursue surgical fixation. I discussed the risks of surgery in great detail with the patient and her . The patient understands the risks including loss of life or limb, infection, incomplete relief of pain, need for additional surgery, iatrogenic injury to bone, nerves, vessels, tendons. They also understand the risks of blood clots, DVT/PE. In cases where hardware is to be placed, the patient understands the risk of nonunion, malunion, hardware complication, hardware failure, hardware prominence. In cases where bone graft is used, if autograft is used, they understand the risk of donor site morbidity and if allograft bone is used, they understand the risk of transmission of disease as well as incomplete incorporation. No specific outcome guarantee was stated or implied. Patient understands all these risks and wishes to proceed. Preoperatively, the patient was seen and cleared by her primary care provider as well as cardiology due to her significant cardiac and medical comorbidities. Description of Procedure After informed consent was obtained, the patient was correctly identified in the preoperative holding suite, the operative site was marked with the surgeon's initials and the word yes. The patient was then taken to the operative suite. The department of anesthesia administered general anesthesia. [facility]. All bony promin ences were well-padded. Briefing and timeout was performed. All implants were available and sterile at the time. BRIEFING AND DEBRIEFING: Pre and post operative briefing and debriefing was performed. Introductions were made, goals of the procedure were discussed, questions and concerns were addressed. The operative site markings were identified and appropriate. A time [id number] was performed, the patient's correct identity was confirmed and the correct operative sites were identified. The patients pre-operative antibiotic dosing and administration was confirmed along with other SCIP measures. The team was polled at the completion of the surgery and all team members were in agreement that the procedure was without complication, the counts are correct, the wound class was identified and suggestions for improvement were shared. [facility] table and all bony prominences were well-padded. The right lower extremity was placed on a bump and a bump was placed under the ipsilateral hip. A tourniquet was placed high on the thigh that was well-padded. Fluoroscopy was brought in to confirm a positive stress exam at the beginning of the procedure. With the ankle held in 15 degrees of internal rotation, perfect mortise was obtained and then an external rotational stress was then applied to the foot. The medial clear space significantly widened the fracture displaced confirming that open reduction internal fixation was appropriate. We then remove the patient's splint and prepped and draped the ankle in standard sterile fashion. The limb was elevated and exsanguinated using an Esmarch. The tourniquet was inflated to 250 mmHg and remained elevated for 75 minutes during the procedure. It was not reinflated. We first performed a standard direct lateral approach to the distal fibula taking care to checked the superficial peroneal nerve which was visualized in the anterior skin flap. We then dissected down to the periosteum and split this sharply using a 10 blade. It was reflected both anteriorly and posteriorly and the fracture was immediately identified. We then gapped the fracture open using a [place] elevator and cleaned out some organizing fracture hematoma using a dental pick, curettes, and pituitary. Once the fracture fragments were properly cleaned, [id number] reduction clamps were used to manipulate the distal fragment so as to achieve an anatomic reduction with appropriate fibular length - confirmed this using the dime sign. We then used K wires to hold the fracture in place and first placed a 2.7mm lag screw by from posterior to anterior. This did not have appropriate purchase and as such it was exchanged for a 3.5 mm lag screw. This was 22 mm in length. Due to the bone quality appreciated intraoperatively as well as the fact that the 2.7 mm lag screw did not hold, we felt as if more robust fixation was required. The 5 hole 2.7 mm / 3.5 mm lateral distal fibula periarticular plate by [employer] was chosen. We placed this in an appropriate position on the distal fibula such that it sat flush. It was then wired this into place and confirmed its location via fluoroscopy. Once location was confirmed, we first drilled and placed an appropriately sized 3.5 mm cortical screw just proximal to the fracture to hold the plate in place. We then began placing screws distally. We drilled, measured, and placed 2.7 mm locking screws distally. All holes were filled. We then turned attention proximally and placed 2 additional 3.5 mm cortical screws proximally. A total of five 2.7 mm locking screws were used distally and three 3.5 mm nonlocking screws were used proximally. Good purchase was felt on all proximal screws. Due to the fact that the patient has a nickel allergy, titanium implants were used. Fluoroscopy was brought in to confirm safe placement of all hardware and achieve final films. We then performed an external rotation stress test to ensure that the syndesmotic stability was restored with anatomic religious of the distal fibula and the stress exam was noted to be negative. We then proceeded to closed in a layered fashion using 3-0 Monocryl in the periosteal layer followed by 4-0 nylon in vertical Allgower Donati fashion. The wound was dressed with Betadine soaked Adaptic, fluffs, sterile Webril. We then obtained final flatplate films in the OR. A well-padded below knee [place] splint was applied. The patient tolerated this procedure well and was transferred to the PACU in stable condition. Prior to transportation to PACU, all counts were correct and a briefing was performed at the end of the case. Physician-directed fluoroscopy for greater than one hour was performed by myself to verify fracture alignment and the safe placement of all internal fixation. The final images saved to PACs showed views demonstrating satisfactory alignment of the fracture and stable internal fixation. Implant verification was performed by the senior surgeon by reading and confirming the implant information on the packaging with the team before the sterile implants were opened. I was present for the procedure and directly supervised the resident/fellow and was immediately available. The content and accuracy of the above dictation was verified by the attending. Plan: Weight bearing status: non weightbearing Wound care: keep splint clean and dry Range of motion: okay for knee and hip VTE Prophylaxis: 81mg Aspirin twice daily Antibiotics: periop ancef Pain Control: multimodal, avoid NSAIDs Vitamin D Replacement: laps pending Discharge Plan: Patient was admitted for observation overnight. She will be seen by physical therapy and an appropriate discharge plan will be formulated Follow Up: 2 weeks with myself. No x-rays are needed I attest to the content of the Intraoperative Record and any orders documented therein. Any exceptions are noted below.
--- NOTE | 2024-08-14 15:23 | XRay Report ---
RIGHT ANKLE 2 VIEWS CLINICAL HISTORY: Postoperative examination. FINDINGS: AP and crosstable lateral views of the right ankle are obtained. No prior studies are avail able for comparison at the time of dictation. The skeletal structures are osteopenic. There has been buttress plate fixation along the lateral cortex of the distal fibular fracture with orthodoxy of n ear-anatomic alignment. Numerous cortical lag screws transfix the buttress plate. The orthopedic hard torres appears intact. The distal tibia appears intact. Anatomic alignment is maintained at the ankle m ortise. There are dorsal and plantar heel spurs. Soft tissue edema and foci of subcutaneous gas aroun d the ankle are expected postsurgical changes. IMPRESSION: Expected postsurgical findings status post open reduction and interval fixation of a dist al fibular fracture as above. Dictated: 08/14/2024 3:09 PM Transcribed: 08/14/2024 3:13 PM Miguel Angel [id number] [email or web address] Electronically signed by: Miguelangel Sargent M.D. 08/14/2024 3:22 PM
[2024-08-14] MEDS ORDERED: PHARMACY GLYCEMIC MGMT CONSULT PRN (15:48)
--- NOTE | 2024-08-14 15:55 | Anesthesiology Progress Note ---
Date of Service August 14, 2024 Anesthesia Post Procedure Vital Signs Vital Signs: Temp Pulse Pulse Resp BP Pulse Ox O2 Del Method 08/14/24 15:35 82 12 170/79 H 95 Nasal Cannula 08/14/24 15:25 74 14 154/77 H 93 Room Air 08/14/24 15:15 78 17 159/74 H 97 Room Air 08/14/24 15:06 97.0 F L 83 14 150/81 H 100 Oxymask 08/14/24 11:27 98.1 F 78 20 193/87 H 97 Room Air O2 Flow Rate 08/14/24 15:35 2 08/14/24 15:25 08/14/24 15:15 08/14/24 15:06 5 08/14/24 11:27 Pain Intensity Right Lower Leg: Pain Intensity: 5 Transfer of Care Handoff Completed per policy Notes Mental Status: alert / awake / arousable and participated in evaluation Patient Amnestic to Procedure: Yes Nausea / Vomiting: adequately controlled Pain: adequately controlled Airway Patency, RR, SpO2: stable & adequate BP & HR: stable & adequate Hydration State: stable & adequate Anesthetic Complications: no major complications apparent and Pt Satisfied with anesthetic care
[2024-08-14] MEDS ORDERED: TAMSULOSIN HCL 0.4 MG CAP PO PRN (16:43)
[2024-08-14] MEDS ORDERED: hydrOXYzine HCl 25 MG TAB PO PRN (16:43)
[2024-08-14] MEDS ORDERED: FLUTICASONE/VILANTEROL 100/25MCG 14 PUFFS/INHALER INH PRN (16:43)
--- NOTE | 2024-08-14 17:10 | Hospitalist Consultation ---
Date of Consultation August 14, 2024 Assessment & Plan (1) Ankle fracture, right: s/p right ankle ORIF 08/14 due to Hadley B distal fibula fracture patient rolled her ankle 08/02 resulting in a fracture - Pre-op EKG showed ventricular paced rhythm, CBC showed no sign of anemia, BMP WNL - hemodynamically stable postoperatively; 2 L Nasal cannula - does not use oxygen at baseline - pain management, diet, and VTE ppx per orthopedics team - Vit D level pending - Am CBC and BMP - PT/OT consulted (2) UTI (urinary tract infection): Patient with UTI prior to surgery and started course of Macrobid with PCP - Patient with history of kidney stones; stated she had flank pain, dysuria, an ashleigh colored urine over the weekend - symptoms since resolved with start of antibiotic; clear urine this AM - UTI vs passed stone - only took 1 day of prescription so far - UA 08/10 suspicious for UTI with WBC and RBC present; although no culture completed - urine culture ordered - continue with Macrobid x 6 days (3) Heart failure with reduced ejection fraction: History of HFrEF - Dry weight ~ 78.47 kg - Last echocardiogram 09/2023 showed Ef 45-49%, mild hypokinesis, and mild mitral, tricuspid, and pulmonary regurg. - Heart healthy, low-sodium, fluid restricted diet - continue home diuresis with 20 mg Lasix QAM - 1L IV fluids given post-operatively; discontinued with HF history - Strict I&O monitoring and daily weights (4) Hypertension: Stable, elevated post-operatively - likely elevated secondary to medication hold pre-operatively - resume Metoprol with evening dose and Lasix in AM (5) DM type 2 (diabetes mellitus, type 2): History of T2Dm managed with Jardiance and Insulin at home - 26 Units basal glucose HS at home, just started Jardiance 2 months ago - continue to hold Jardiance in hospital setting - Most recent A1C 8.4 - SSI with target BSG range 110-140mg/dL, CF 20, carb ratio 7 - T2DM diet - BSG ACHS if eating - Adjust regimen as needed - pharmacy consulted for post- operative glycemic management (6) Hyperlipidemia: - most recent lipid panel showed elevated triglycerides, LDL and HDL WNL - continue home statin (MWF) and aspirin (7) GERD (gastroesophageal reflux disease): - home omeprazole switched to pantoprazole on admission - continue Zofran prn, recent EKG showed Qtc 473 (8) Asthma: 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; only uses Inhaler during summer season with good asthma control - on 2 L O2 via nasal cannula on exam; does not use oxygen at baselin - non-hypoxic post-operatively - continue home Breo Ellipta prn and Flonase (9) Biventricular ICD (implantable cardioverter-defibrillator) in place: History of nonischemic cardiomyopathy, frequent PVC's, and LBBB - s/p biventricular ICD - continue home Ranexa, Lasix, and Metoprolol Plan VTE ppx: SCDs Diet: T2DM, heart healthy, sodium restriction, fluid restriction 2000 mL Code status: Full Dispo: Med/surg Supervising Physician Co-Signing Physician Notes I personally saw and examined the patient. I independently reviewed the labs, EKG, imaging, problem list, medication list, past medical history and family history. I verified all santana points and agree with Latisha Barrera PA-C with the following exceptions and/or additions: 73 year old POD#0 right ankle ORIF O/E HS RRR, no murmurs, Chest CTAB, Abdo SNT A/P VTE/Pain/Bowel per primary orthopedic team UTI - continue Macrobid as no symptoms/sign this is getting worse. Repeat UA No change to plan as above History of Present Illness Reason for Consultation: Medical Management Requesting Physician: Tejinder Fuentes DO Attending Physician: Tejinder Fuentes DO History of Present Illness Patient is a 73 y/o female with a past medical history of nonischemic cardiomyopathy and LBBB s/p biventricular ICD, HFrEF, HLD, HTN, DMT2, GERD, and asthma. She is s/p right ankle ORIF this afternoon. Patient seen at bedside with her son present. She is feel well after surgery, denies dizziness, nausea, pain. Her right foot is still numb. She broke her ankle 11 days ago and has had significant pain since. She was diagnosed with a UTI over the weekended and just started an antibiotic in which she took 1 day of. She stated that she had dysuria, flank pain, and ashleigh colored urine. Her symptoms have since subsided since starting the antibiotic. She does have a history of kidney stones and feels as thought she may have had one and it passed. Patient denies fever, chills, headache, dizziness, lightheadedness, dyspnea, chest pain, abdominal pain, nausea, vomiting, dysuria, hematuria, edema. She does not smoke tobacco or drink alcohol. She took her home metoprolol this morning. She denies history of cancer. She did have a left leg DVT in 1979. Her son brought up a concern about discharge. The patients is to have surgery in the near future as well. Both of their sons do not live in the area, and if she needs inpatient PT, the sons would like her close to them. Allergies Allergy/AdvReac Type Severity Reaction Status Date / Time amiodarone Allergy Severe vision loss Verified 08/14/24 11:15 tirzepatide [From Mounjaro] Allergy Severe Swelling Verified 08/14/24 11:15 of Lip/Tongue/Throat tomato Allergy Severe severe lip Verified 08/14/24 11:15 swelling and ucers in mouth Corticosteroids Allergy Intermediate Redness of Verified 08/14/24 11:15 (Glucocorticoids) Skin dulaglutide [From Trulicity] Allergy Intermediate Abdominal Verified 08/14/24 11:15 Pain ibuprofen [From Nuprin] Allergy Intermediate Swelling Verified 08/14/24 11:15 of the Eye Iodinated Contrast Media Allergy Intermediate Redness of Verified 08/14/24 11:15 Skin lansoprazole [From Prevacid] Allergy Intermediate Hives Verified 08/14/24 11:15 latex Allergy Intermediate Hives Verified 08/14/24 11:15 Proton Pump Inhibitors Allergy Intermediate Redness of Verified 08/14/24 11:15 Skin ragweed pollen Allergy Intermediate Congested Verified 08/14/24 11:15 soy Allergy Intermediate Flushing Verified 08/14/24 11:15 strawberry Allergy Intermediate Hives Verified 08/14/24 11:15 vaccine adjuvant system, Allergy Intermediate swelling Verified 08/14/24 11:15 AS01B liposomal of arm [From Shingrix (PF)] varicella-zoster virus Allergy Intermediate swelling Verified 08/14/24 11:15 glycoprotein E, recombinant of arm [From Shingrix (PF)] wheat Allergy Intermediate abd pain, Verified 08/14/24 11:15 diarrhea albiglutide [From Tanzeum] Allergy Mild Unknown Verified 08/14/24 11:15 metformin Allergy Mild Unknown Verified 08/14/24 11:15 nickel Allergy Mild Rash Verified 08/14/24 11:15 phenazopyridine Allergy Unknown Unknown Verified 08/14/24 11:15 adhesive tape AdvReac Intermediate severe Verified 08/14/24 11:16 redness to skin, irritation Bactrim AdvReac Intermediate "DEATHLY Verified 02/22/18 13:08 ILL" SEVERE N/V ibandronate sodium AdvReac Intermediate GERD severe Verified 08/14/24 11:15 milk AdvReac Intermediate diahhrea Verified 08/14/24 11:15 NSAIDS (Non-Steroidal AdvReac Intermediate Gastrointestinal Verified 08/14/24 11:15 Anti-Inflamma Upset sulfamethoxazole AdvReac Intermediate "DEATHLY Verified 08/14/24 11:15 ILL" SEVERE N/V trimethoprim AdvReac Intermediate "DEATHLY Verified 08/14/24 11:15 ILL" SEVERE N/V naproxen [From Aleve] AdvReac Mild Gastrointestinal Verified 08/14/24 11:15 Upset oxycodone [From Percocet] AdvReac Mild Gastrointestinal Verified 08/14/24 11:15 Upset tramadol [From Ultram] AdvReac Mild Gastrointestinal Verified 08/14/24 11:15 Upset Biphosphonate AdvReac Mild Severe GI Uncoded 08/14/24 11:15 upset Home Medications Medication Instructions Recorded Confirmed Type blood sugar diagnostic (OneTouch #100 ea 04/18/20 08/09/24 Rx Ultra Blue Test Strip) blood-glucose meter (OneTouch #1 ea 04/18/20 08/09/24 Rx Ultra2 Meter) triamcinolone acetonide 0.1 % 1 applic topical BID PRN Rash 06/17/21 08/14/24 History topical cream cranberry 500 mg capsule 500 mg PO QAM 05/28/22 08/14/24 History lancets 28 gauge (FreeStyle #100 ea 08/08/23 08/09/24 Rx Lancets) amoxicillin 500 mg tablet 2,000 mg (4 x 500 mg) PO ONCE #12 08/15/23 08/14/24 Rx tabs ranolazine 500 mg tablet,extended See Rx Instructions PO BID #270 10/17/23 08/14/24 Rx release,12 hr tabs metoprolol succinate 50 mg 50 mg PO BID #180 tabs 10/29/23 08/14/24 Rx tablet,extended release 24 hr pen needle, diabetic 32 gauge x #100 ea 12/09/23 08/09/24 Rx 5/32" (BD Ultra-Fine Vicky Pen Needle) hydroxyzine HCl 25 mg tablet 25 mg PO HS PRN itching #30 tabs 01/24/24 08/14/24 Rx mometasone 50 mcg/actuation nasal 2 spray intranasal HS #17 grams 01/24/2408/14 Rx spray (Nasonex 24hr Allergy) potassium chloride 10 mEq 10 meq PO QAM 01/30/24 08/14/24 History capsule,extended release rosuvastatin 10 mg tablet (Crestor) 10 mg PO .Mon, Wed and Fri #45 tabs 02/08/24 08/14/24 Rx blood sugar diagnostic (FreeStyle #100 ea 05/16/24 08/09/24 Rx Lite Strips) vitamin d with K2 See Rx Instructions PO DAILY 06/05/24 08/14/24 History insulin glargine 100 unit/mL (3 See Rx Instructions subcut HS #4 06/25/24 08/14/24 Rx mL) subcutaneous pen (Basaglar SYRINGES KwikPen U-100 Insulin) B-complex with vitamin C 1 cap PO DAILY #90 caps 07/30/24 08/14/24 Rx tamsulosin 0.4 mg capsule 0.4 mg PO HS PRN kidney stone #10 07/30/24 08/14/24 Rx caps empagliflozin 10 mg tablet 10 mg PO DAILY #30 tabs 07/31/24 08/14/24 Rx (Jardiance) naloxone 4 mg/actuation nasal spray 4 mg intranasal Q3M PRN opioid 08/03/24 08/14/24 Rx overdose #2 ea ondansetron 4 mg disintegrating 4 mg PO Q8H PRN nausea and 08/03/24 08/14/24 Rx tablet vomiting #30 tabs aspirin 81 mg tablet,delayed 162 mg PO QAM 08/10/24 08/14/24 History release cetirizine 10 mg tablet (Zyrtec) 10 mg PO QAM 08/10/24 08/14/24 History cholestyramine (with sugar) 4 gram 4 g PO BID 08/10/24 08/14/24 History oral powder (Questran) fluticasone furoate 100 1 inh inhalation DAILY PRN 08/10/24 08/14/24 History mcg-vilanterol 25 mcg/dose Congestion inhalation powder (Breo Ellipta) furosemide 20 mg tablet 20 mg PO QAM 08/10/24 08/14/24 History omeprazole 40 mg capsule,delayed 40 mg PO QAM 08/10/24 08/14/24 History release nitrofurantoin macrocrystal 100 mg 100 mg PO BID 08/14/24 08/14/24 History capsule (Macrodantin) Patient History Medical History Hyperlipidemia Frequent PVCs Follows with cardio Cardiomyopathy, nonischemic well compensated per 08/07/24 cardio note EF 45-49% per 09/2023 ECHO Bursitis, shoulder left Vertigo any time when lying flat Hx of migraines now resolved with injections IBS (irritable bowel syndrome) Hyperthyroidism No meds noted TSH WNL 08/2023 History of kidney stones also one still present to left Diabetes mellitus, type 2 Hx: UTI (urinary tract infection) last one April 2024 > no symptoms at present LBBB (left bundle branch block) s/p ICD CHF (congestive heart failure) Hx of deep venous thrombosis remote hx, from an injury Atrial fibrillation dx 2017 > s/p pacer Neuropathy Surgical History History of cardiac cath 2018 > no stents History of esophagogastroduodenoscopy (EGD) History of colonoscopy History of lithotripsy History of permanent cardiac pacemaker placement 2019 > Medtronic > Afib > follows with Dr. Mandujano > last checked spring 2023 Hx of laminectomy pt unaware of this > denies History of bladder surgery History of ankle surgery left History of cataract surgery bilat History of hysterectomy History of cholecystectomy History of appendectomy Family History Mother Myocardial infarction CHF (congestive heart failure) Hypertension Father Hypertension Diabetes Colorectal cancer Coronary heart disease Son Ulcerative colitis Unknown Heart disease Nephrolithiasis Lung cancer Aunt Breast cancer Sister Lung cancer Denies family history of Ovarian cancer Prostate cancer Social History Smoking Status: Never smoker Second Hand Exposure: No; Do You Dip or Chew Tobacco: No; Tobacco Cessation Education Requested by Patient: No Hx Alcohol Use: No Hx Substance Use: No Preferred Language: Honduran Communication Ability: Effective Visual Impairment: Blindness Hearing Ability: Normal Relocation Commissioner Required: No Beliefs That Will Affect Care: None marital status: Current Living Situation: Spouse current occupational status: retired How many Children do You have: 2 Other Information That Helps Us Care for You: No Feels Safe at Home: Yes Safety Concerns: Feels Safe At This Time Childhood Exposure to Second-Hand Smoke: Yes (Both parents smoked) Diet: regular Diet Comment: Regular diet caffeine: Yes (tea) during the past year weight has: decreased > 10 lbs Dental Care, Regularly: Yes Physical Activity Frequency: Daily Physical Activity Frequency Comment: Stationary bike Seatbelt Use: always Sunscreen Use: Yes Do you think of yourself as: straight/heterosexual Gender Identity: Female Assistive Devices: Cane and Wheelchair Review of Systems Review of Systems: See HPI Physical Exam Physical Exam: The patient is awake, alert and oriented 3, well developed and well nourished, normocephalic and atraumatic, in no acute distress. Non-toxic appearing. HEENT- EOMI, mucous membranes moist. Hearing grossly intact. Heart-normal S1 and S2. No murmurs, rubs or gallops. Lungs-clear bilaterally, no respiratory distress, no accessory muscle use. On 2L O2 via nasal canula. Abdomen-normal bowel sounds and soft. No ascites noted. Non-tender. Extremities- no clubbing, cyanosis, or edema. Right foot elevated with surgical bandages in place. Rheumatologic-normal range of motion. Psychiatric-normal affect. Results & Data Results & Data Vital Signs (Past 12 Hours) Vital Signs Temp Pulse Pulse Resp BP Pulse Ox O2 Del Method 08/14/24 16:15 82 20 140/76 94 Nasal Cannula 08/14/24 16:05 36.5 C 81 14 145/85 H 95 Nasal Cannula 08/14/24 15:55 81 16 154/87 H 94 Nasal Cannula 08/14/24 15:45 83 16 162/78 H 95 Nasal Cannula 08/14/24 15:35 82 12 170/79 H 95 Nasal Cannula 08/14/24 15:25 74 14 154/77 H 93 Room Air 08/14/24 15:15 78 17 159/74 H 97 Room Air 08/14/24 15:06 36.1 C L 83 14 150/81 H 100 Oxymask 08/14/24 11:27 36.7 C 78 20 193/87 H 97 Room Air O2 Flow Rate 08/14/24 16:15 2 08/14/24 16:05 2 08/14/24 15:55 2 08/14/24 15:45 2 08/14/24 15:35 2 08/14/24 15:25 08/14/24 15:15 08/14/24 15:06 5 08/14/24 11:27 PG Care Time/CCT Total # of Minutes Spent Total Time Spent with Patient: Total time spent is greater than 50% in coordination of care (as documented) at patient's floor/unit and/or counseling patient: Coding Level of Care Code None Diagnoses Ankle fracture, right S82.891A UTI (urinary tract infection) N39.0 Heart failure with reduced ejection fraction I50.20 Hypertension I10 Type 2 diabetes mellitus without complication, without long-term current use of insulin E11.9 Diabetes mellitus complication status: without complication Diabetes mellitus chcf insulin use: without local intermodal truck driver use Pure hypercholesterolemia E78.00 Hyperlipidemia type: pure hypercholesterolemia GERD (gastroesophageal reflux disease) K21.9 Asthma J45.909 Biventricular ICD (implantable cardioverter-defibrillator) in place Z95.810 (5) DM type 2 (diabetes mellitus, type 2) Diabetes mellitus complication status: without complication Diabetes mellitus local 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
[2024-08-14] MEDS: ACETAMINOPHEN 325 MG TAB PO SCH (18:11)
[2024-08-14] MEDS: LANTUS PER UNIT CHARGE SC ONE (18:12)
--- OUTSIDE RECORDS SUMMARY | 2024-08-14 18:21 | External Medical Summary | Summary of Care ---
Author Name Unknown Organization [facility] Address [address] [place] [address] Phone [phone] Care Team Providers Care Pipeline Superintendent Name Role Phone Rafael Mcdaniel MD Primary Care Provider [phone] Reason for Visit * Reason Onset Date Comments Advice 08/12/2024 Encounter Details Date Type Department Care Team (Late st Contact Info) Description 08/12/2024 Telephone Gastroenterology, [address] [address] Marie Charles PA-C [facility] [place] [address] Advice (/) Allergies Active Allergy Reactions Criticality Noted Date Comments Amiodarone 09/30/2021 Optic nerve toxicity Bactrim Fever,Flushing Medium 02/24/2011 Corticosteroids 11/28/2001 flushed/tachy w/ injected steroids in her spine Tolerates Prednisone Dulaglutide High 09/03/2022 Other Reaction(s): Abdominal Pain Food (See Comments) Hives Medium 05/31/2015 tomatoes Ibandronic Acid 05/23/2023 Other Reaction(s): GERD severe Ibuprofen High 09/03/2022 Other Reaction(s): Swelling of the Eye Iodinated Contrast Media High 09/03/2022 Other Reaction(s): Redness of Skin Lactose Intolerance 08/02/2024 Lansoprazole 08/19/2003 facial swelling, rash Latex 09/01/2011 Rash in mouth after dental exam using latex gloves Metformin Low 09/03/2022 Other Reaction(s): Unknown Naproxen Low 09/03/2022 Other Reaction(s): Gastrointestinal Upset Nickel 09/03/2022 Other Reaction(s): Rash Nsaids 11/28/2001 hives to aleve, able to take motrin Oxycodone Low 09/03/2022 Other Reaction(s): Gastrointestinal Upset Oxycodone-Acetaminophen Nausea/vomiting 010 The patient says she can tolerate Vicodin Phenazopyridine 02/14/2004 Pyridium caused diaphoresis, tachycardia Proton Pump Inhibitors 09/03/2003 Prvacid Ragweed Cough 08/26/2021 Soy Allergy Edema face/lips/tongue High 04/29/2011 Other Reaction(s): Flushing [place] Extract Hives 08/26/2021 Sulfamethoxazole High 09/03/2022 Other Reaction(s): "DEATHLY ILL" SEVERE N/V Albiglutide Rash Low 10/15/2016 Tirzepatide High 01/24/2024 Other Reaction(s): Swelling of Lip/Tongue/Throat Tramadol 04/24/2003 Ultram Vomiting Trimethoprim High 09/03/2022 Other Reaction(s): "DEATHLY ILL" SEVERE N/V Wheat Unknown Low 09/03/2022 Wound Dressing Adhesive Other (Please comment) 06/03/2021 Can't use bandaids/rios skin documented as of this encounter (statuses as of 08/13/2024) Medications Medication Sig Dispensed Refills Start Date End Date Status [employer] SYSTEM W/DEVICE KITIndications:DM type 2, goal A1c below 7 Use up to four times a day as directed 1 0 06/20/2009 Active TelematikTOUCH ULTRASOFT LANCETS MISCIndications:DM type 2, goal A1c below 7 Use up to four times a day as directed 100 11 06/20/2009 Active AZO-CRANBERRY 450 MG PO TABS one daily 30 Tab 5 10/15/2010 Active Glucose Blood (ONETOUCH ULTRA BLUE) STRPIndications:DM type 2, goal A1c at or below 9.0 Use as directed 4 times a day as needed (Diabetes). Use up to four times a day as directed DX Type II Diabetes E11.9 100 Strip 11 10/28/2015 Active Blood Glucose Monitoring Suppl (AXON [employer]inel ULTRA SYSTEM) W/DEVICE KITIndications:DM type 2, goal A1c at or below 9.0 Use as directed 4 times a day as needed (Diabetes). Use up to four times a day as directed DX Type II Diabetes E11.9 1 Kit 0 10/28/2015 Active fluticasone (FLONASE) 50 MCG/ACT nasal spray Administer 2 Sprays into each nostril daily. 3 Bottle 3 06/07/2016 Active furosemide (LASIX) 20 MG TabletIndications:Ch ronic diastolic congestive heart failure (HCC) Take 1 Tab by mouth daily. . 30 Tab 09/13/2018 Active Basaglar KwikPen 100 UNIT/ML Subcutaneous Solution Pen-injector (Insulin Glargine) Inject 26 Units under the skin at bedtime. Uses 3 ml Active Omeprazole 40 MG Oral Capsule Delayed Release (PriLOSEC) Take 1 Capsule by mouth in the morning. Active Triamcinolone Acetonide 0.1 % External Cream (Aristocort) Apply topically to affected area 2 times a day. Apply to chest and belly Active Amoxicillin 500 MG Oral Tablet Take 4 Tablets by mouth once. 1 hour prior to dental procedure Active Budesonide-Formotero l Fumarate 160-4.5 MCG/ACT Inhalation Aerosol (Symbicort) Inhale 2 Puffs by mouth 2 times a day as needed for Other (asthma symptoms (takes in June/July)) . Active Vitamin D (Cholecalciferol) 50 MCG (2000 UT) Oral Capsule Take 2,000 Units by mouth every morning. Active Potassium Chloride ER 10 MEQ Oral Capsule Extended Release Take 1 Capsule by mouth in the morning and 1 Capsule before bedtime. Active Rosuvastatin Calcium 10 MG Oral Tablet (Crestor) Take 1 Tablet by mouth once a day on Tuesday, Tuesday, and Tuesday only. Active Metoprolol Tartrate 50 MG Oral Tablet (Lopressor) Take 1 Tablet by mouth in the morning and 1 Tablet before bedtime. 60 Tablet 11 09/16/2023 Active Azelastine HCl 0.1 % Nasal Solution (Astelin)Indications :Chronic rhinitis Administer 1 Cobb into nostril in the morning and 1 Cobb before bedtime. 30 mL 12 03/20/2024 Active Cetirizine HCl 10 MG Oral Tablet (ZyrTEC) daily. 01/24/2024 Acti ve Cholestyramine 4 GM/DOSE Oral Powder TAKE 4 GRAMS BY MOUTH ONCE DAILY TAKE WITH A MEAL. AVOID OTHER MEDS WITHIN 1 HOUR BEFORE OR 4 TO 6 HOURS AFTER DOSE. 07/30/2024 Active Colestipol HCl 1 GM Oral Tablet (Colestid) TAKE TWO TABLETS BY MOUTH TWICE A DAY. SWALLOW WHOLE WITH ANY LIQUID. DO NOT CUT, CRUSH, OR CHEW. TAKE OTHER MEDS 1 HOUR BEFORE OR 4 HOURS A 07/11/2024 Active Jardiance 10 MG Oral Tablet 1 Tablet in the morning. 07/31/2024 Active Doxepin HCl 100 MG Oral Capsule (SINEquan) 07/16/2024 Active Fluticasone Furoate-Vilanterol 100-25 MCG/ACT Inhalation Aerosol Powder Breath Activated (BREO ellipta) 01/24/2024 Active hydrOXYzine HCl 25 MG Oral Tablet 3 times a day as needed. 07/11/2024 Active Vitamin C Oral Liquid Take by mouth. Active Polyethylene Glycol 3350 Powder Take by mouth daily as needed. Active Ondansetron 4 MG Oral Tablet Disintegrating (Zofran) Place 1 Tablet on tongue every 8 hours as needed for Nausea. dissolve on tongue. 30 Tablet 08/02/2024 Active oxyCODONE HCl 5 MG Oral Tablet (Oxy IR) Take 1 Tablet by mouth every 4 hours as needed for Pain, Breakthrough for up to 6 doses. 6 Tablet 08/02/2024 Active Naloxone HCl 4 MG/0.1ML Nasal Liquid (Narcan Nasal) Administer 1 spray into 1 nostril for suspected opioid overdose. Seek immediate medical attention. https://www.youtub e.com/watch?v=v26c Mdm6DcW 1 Each 3 08/02/2024 Active documented as of this encounter (statuses as of 08/13/2024) Active Problems Problem Noted Date Diagnosed Date Dizziness 09/15/2023 Status post biventricular pacemaker 09/15/2023 Orthostatic hypotension 09/14/2023 Biventricular ICD (implantab le cardioverter-defibrillator) in place 09/14/2023 Gastroesophageal reflux dise ase concurrent with and due to paraesophageal hernia 09/14/2023 Osteoporosis 09/14/2023 Chest pressure 09/14/2023 Generalized weakness 09/14/2023 Cardiomyopathy 08/23/2019 Small fiber neuropathy 10/05/2016 Controlled substance agreement signed 05/21/2016 Type 2 diabetes mellitus wit h hemoglobin A1c goal of less than or equal to 9.0% 08/21/2015 Overview: ICD-10 update of inactive term Kidney disease, chronic, stage III (GFR 30-59 ml /min) 06/09/2015 Overview: Per CKD protocol #1 Heart failure 12/18/2014 HTN, goal below 140/90 12/18/2014 Cardiac LV ejection fraction 30-35% 11/11/2014 Female stress incontinence 10/09/2014 Cystocele, midline 10/09/2014 Rectocele 10/09/2014 Abnormal mammogram, unspecified 10/09/2014 History of DVT of lower extremity 07/11/2013 Overview: In her Left foot after injury to foot MITRAL VALVE REGURGITATION NOS 02/07/2013 LBBB (left bundle branch block) 09/22/2012 Calculus of kidney 01/09/2010 Dyslipidemia, goal LDL below 70 10/16/2009 Overview: Per Lipid Taxonomy. ADVANCE DIRECTIVE INFORMATION 11/18/2008 Overview: No, Advance Directive brochure given to patient at prior appointment. Family history of cardiovascular disease 008 Displacement of lumbar inter vertebral disc without myelopathy 05/28/2008 ANGIOEDEMA 11/15/2006 Mitral valve regurgitation 05/06/2006 Overview: Cardio recommends abx prophyaxix Migraine 03/16/2006 ENDOSCOPY 06/02/2005 Overview: EGD: 05/21/05 - mild esophagitis, esophageal dilation GASTROESOPHAGEAL STRICTURE--DUODENITIS--GASTRITIS--NO H PYLORI Non-toxic multinodular goiter 03/02/2005 Overview: Hx of bilateral thyroid nodules, bx: benign Other specified disorder of sweat glands 005 Overview: Episodic sweating; NOT thyroid related NONALLERGIC RHINITIS 05/14/2003 Overview: Gustatory component. ASTHMA, MILD PERSISTENT 05/14/2003 Overview: PER PROVIDER. ASTHMA, COUGH VARIANT Asthma with severity to be determined 05/14/2003 Overview: ICD-10 update of inactive term shoulder tendonitis 04/24/2003 Back Pain 04/24/2003 Myofascial pain 04/24/2003 ROTATOR CUFF SYND NOS 04/24/2003 Irritable bowel syndrome 10/11/2002 Need for prophylactic hormon e replacement therapy (postmenopausal) 06/28/2002 GENERAL OSTEOARTHROSIS GERD (gastroesophageal reflux disease) Mitral regurgitation documented as of this encounter (statuses as of 08/13/2024) Resolved Problems Problem Noted Date Diagnosed Date Resolved Date Type 2 diabetes mellitus wit h hemoglobin A1c goal of less than 7.0% 08/21/2009 08/21/2015 Overview: Modified per Diabetes protocol #14. ICD-10 update of inactive term Dyslipidemia, goal to be determined 08/15/2009 10/16/2009 Overview: Per Lipid Taxonomy. Esophageal reflux 10/21/2008 06/30/2016 Overview: Upper GI LH 01/07/09 esophageal dysmotility and GERD to level of the thoracic inlet DM type 2, not at goal 09/26/200808/21 Overview: Modified per Diabetes protocol #14. Urticaria 11/15/2006 06/19/2015 Asthma with severity to be determined 05/14/2003 09/19/2012 Overview: ICD-10 update of inactive term GERD (gastroesophageal reflux disease) 10/21/2008 documented as of this encounter (statuses as of 08/13/2024) Immunizations Name Administration Dates Next Due COVID-19 mRNA, LNP-s, No Pre serve, 2-Dose Series (Sanrad) 08/08/2021,01/11/2021,12/14/2020 Covid-19, Mrna, Lnp-s, Pf, B ivalent, 30 Mcg, IM, 12 yrs and above (Pfizer) 07/30/2024 H1N1 2009 Influenza, IM 02/15/2011(Deferred: Pat ient Refused) Pneumococcal Conjugate Vacc, 13 Valent (Prevnar) 06/04/2015 Pneumococcal Polysaccharide PPV23 (Pneumovax) 09/22/2016,06/20/2009 Seasonal Influenza Vac., MDV , IM, 0.5 mL (Fluzone) 07/16/2014,07/24/2013,08/07/2012,09/01,10/06/2010,01/22/2010(Deferred: Patient Refused - per clinic note),09/11/2008,08/19/2003,10/20/2001 Seasonal Influenza, Quadriva lent, No Preserve, IM 07/30/2024,08/10/2016,08/01/2015 TD - Tetanus/Diptheria (ADULT) 06/20/1996 TDAP, Age 7 and older, IM (Adacel) 05/28/2008 Varicella Zoster Vaccine (Adult) 10/21/2014 documented as of this encounter Social History Tobacco Use Types Packs/Day Years Used Date Smoking Tobacco: Never Smokeless Tobacco: Never Comments:no passive smoke ex posures Alcohol Use Standard Drinks/Week Comments No 0 (1 standard drink = 0.6 oz pur e alcohol) Utilities Answer Date Recorded Do you have trouble paying y our heating, water, or electric bill? (Adult - for ages 18 years and over) Not on file 04/24/2024 Is your family able to pay t he heat, water, or electric bill? (Household - for ages 0-17 years) Not on file 04/24/2024 Does your family have access to good internet? (Household - for ages 0-17 years) Not on file 04/24/2024 Social Connections Answer Date Recorded How often do you feel lonely or isolated from those around you? (Adult - for ages 18 years and over) Not on file 04/24/2024 Sex and Gender Information Value Date Recorded Sex Assigned at Not on file Gender Identity Not on file Sexual Orientation Not on file Job Start Date Occupation Industry Not on file Not on file Not on file documented as of this encounter Functional Status Functional Status Response Date of Assess ment Are you deaf or do you have serious difficulty hearing? No 09/14/2023 Are you blind or do you have serious difficulty seeing, even when wearing glasses? 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 (5 years old or older) No 09/14/2023 Do you have difficulty dress ing or bathing? (5 years old or older) No 09/14/2023 Because of a physical, menta l, or emotional condition, do you have difficulty doing errands alone such as visiting a doctor s office or shopping? (15 years old or older) No 09/14/2023 Cognitive Status Response Date of Assessm ent Because of a physical, menta l, or emotional condition, do you have serious difficulty concentrating, remembering, or making decisions? (5 years old or older) No 09/14/2023 documented as of this encounter Miscellaneous Notes * Telephone Encounter - Natali Dominique OSA - 08/13/2024 9:24 AM EDT Called [facility], pt has a f/u appt 11/23/[address] Mandujano. They will not schedule a "pre op" appt without having the date of pt's colonoscopy. Spoke to pt, states she broke her ankle and her surgery is tomorrow. Pt states her is to have surgery in October. Pt states she is unsure if she will be having colonoscopy and wants to keep her f/u with Dr. 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 FYI * Telephone Encounter - Marie Charles PA-C - 08/12/2024 4:09 PM EDT I had asked on check out for this patient's search engine optimization consultant to be contacted to see if she would be able to be cleared from a cardiology standpoint for a colonoscopy. I do not see where this has been done yet. She sees Dr. Mandujano through [facility]. Thank you. documented in this encounter Plan of Treatment Upcoming Encounters Date Type Department Care Team (Late st Contact Info) Description 11/14/2024 10:45 AM EST Office Visit Urology [facility] [address] [address] Leonidas Lindsay Jr., MD [address] [address] Health Maintenance Due Date Last Done Comments Cologuard 1994 Sigmoidoscopy 1994 Fecal Occult Blood Test 07/11/2014 07/11/20 13, 03/08/2012, 06/19/2008 Mammogram 11/11/2016 11/11/2015, 06/2014, 10/09/2014, Additional history exists Diabetic Eye Exam 02/08/2017 02/09/2016, , 2013, Additional history exists Diabetic Foot Exam 06/30/2017 06/30/2016, 0 06/04/2015, 08/07/2014, Additional history exists Albumin/Creatinine Ratio 07/06/2017 016, 03/02/2016, 11/19/2014, Additional history exists Depression Screening 08/30/2017 08/30/2016 DTap/Tdap Vaccines (2 - Td or Tdap) 05/28/2018 05/28/2008, 06/20/1996, 06/20/1996 Lipid Panel 07/06/2021 07/06/2016, 07/09, 11/11/2014, Additional history exists DXA Scan 02/23/2023 02/23/2021, 05/08, 09/02/2015 Zoster Vaccines (3 of 3) 03/21/2023 01/24/2023, 10/07 *BISPHONATE OR OTHER ACCEPTABLE MEDICATION NEEDED FOR OSTEOPOROSIS (REFER TO SMARTSET #1146) 09/17/2023 Colonoscopy 12/11/2023 12/11/2013, 03/31/2006 Colorectal Cancer Screening 12/11/2023 HbA1c 03/15/2024 09/15/2023, 03/2018, 10/15/2016, Additional history exists GFR 04/29/2024 10/29/2023, 09/07, 09/15/2023, Additional history exists CKD PHOS USE SMARTSET 96452 09/15/2024 11/0 07/2023, 09/14/2023, 06/03/2021, Additional history exists COVID-19 Vaccine ( season) 2024 07/30/2024, 08/12/2022, 08/08/2021, Additional history exists CKD HGB USE SMARTSET 22522 10/29/202410/29, 10/29/2023, 09/16/2023, Additional history exists VITAMIN D LEVEL ONCE IN A LIFETIME-USE SMARTSET# 73342 Completed 05/24/2011, 10/14/2010, 12/08/2009 Pneumococcal Vaccine: 65+ Years Completed 09/22/2016, 06/04/2016, 06/04/2015, Additional history exists Influenza Vaccine (FLU shot) Completed , 07/30/2024, 07/21/2020, Additional history exists HPV (Gardasil) Vaccine Aged Out No lo nger eligible based on patient's age to complete this topic Hepatitis B Vaccine Aged Out No longe r eligible based on patient's age to complete this topic MENINGOCOCCAL (MENACTRA/MENVEO) Aged Out No longer eligible based on patient's age to complete this topic documented as of this encounter Medical Devices Not on filedocumented as of this encounter Advance Directives * Full Code (Latest Code Status on File) Date Activated Date Inactivated Comments 09/14/2023 5:41 PM 09/16/2023 2:56 PM This order reflects the patients wishes and were consensually agreed upon. Question Answer Comments Discussion of Advance Directives occurred with: Patient * Full Code Date Activated Date Inactivated Comments 09/10/2018 10:08 PM 09/13/2018 7:46 PM This order reflects the patients wishes and were consensually agreed upon. * Full Code Date Activated Date Inactivated Comments 05/31/2015 6:20 PM 06/02/2015 1:01 AM This order r eflects the patients wishes and were consensually agreed upon. Question Answer Comments Discussion of Advance Directives occurred with: Not Discussed Does the patient have a Living Will? No Does the patient have Health Care Power of Attor joseph? No Care Teams Pipeline Superintendent Relationship Specialty Start Date End Date Rafael Mcdaniel MD [address] [place] [address] PCP - General Family Medicine 03/07/23 documented as of this encounter
--- OUTSIDE RECORDS SUMMARY | 2024-08-14 18:22 | External Medical Summary | Summary of Care ---
Author Name Unknown Organization [facility] Address [address] [place] [address] Phone [phone] Care Team Providers Care Glass Bulb Machine Adjuster Name Role Phone Rafael Mcdaniel MD Primary Care Provider [phone] Reason for Visit * Reason Onset Date Comments Advice 08/12/2024 Encounter Details Date Type Department Care Team (Late st Contact Info) Description 08/12/2024 Telephone Gastroenterology, [address] [address] Marie Charles PA-C [facility] [employer] [place] [address] Advice (/) Allergies Active Allergy [...] Edema face/lips/tongue High 04/29/2011 Other Reaction(s): Flushing [place] Extract Hives 08/26/2021 Sulfamethoxazole High 09/03/2022 Other Reaction(s): "DEATHLY ILL" SEVERE N/V Albiglutide Rash Low 10/15/2016 Tirzepatide High 01/24/2024 Other Reaction(s): Swelling of Lip/Tongue/Throat Tramadol 04/24/2003 Ultram Vomiting Trimethoprim High 09/03/2022 Other Reaction(s): "DEATHLY ILL" SEVERE N/V Wheat Unknown Low 09/03/2022 Wound Dressing Adhesive Other (Please comment) 06/03/2021 Can't use bandaids/rios skin documented as of this encounter (statuses as of 08/12/2024) Medications Medication Sig Dispensed Refills Start Date End Date Status [employer] SYSTEM W/DEVICE KITIndications:DM type 2, goal A1c below 7 Use up to four times a day as directed 1 0 06/20/2009 Active AmminexTOUCH ULTRASOFT LANCETS MISCIndications:DM type 2, goal A1c [...] 11 10/28/2015 Active Blood Glucose Monitoring Suppl ([employer] ULTRA SYSTEM) W/DEVICE KITIndications:DM type 2, goal [...] Nasal Solution (Astelin)Indications :Chronic rhinitis Administer 1 Amigo into nostril in the morning and 1 Amigo before bedtime. 30 mL 12 03/20/2024 Active [...] overdose. Seek immediate medical attention. https://www.youtub e.com/watch?v=v26c Hly8ZnD 1 Each 3 08/02/2024 Active documented as of this encounter (statuses as of 08/12/2024) Active Problems Problem Noted Date Diagnosed Date [...] as of this encounter (statuses as of 08/12/2024) Resolved Problems Problem Noted Date Diagnosed Date [...] as of this encounter (statuses as of 08/12/2024) Immunizations Name Administration Dates Next Due COVID-19 mRNA, LNP-s, No Pre serve, 2-Dose Series (Coraid) 08/08/2021,01/11/2021,12/14/2020 Covid-19, Mrna, Lnp-s, Pf, B ivalent, 30 Mcg, IM, 12 yrs and above (Pfizer) 07/30/2024 H1N1 2009 Influenza, IM 02/15/2011(Deferred: Pat ient Refused) Pneumococcal Conjugate Vacc, 13 Valent (Prevnar) 06/04/2015 Pneumococcal Polysaccharide PPV23 (Pneumovax) 09/22/2016,06/20/2009 Seasonal Influenza Vac., MDV , IM, 0.5 mL (Fluzone) 07/16/2014,07/24/2013,08/07/2012,09/01,10/06/2010,01/22/2010(Deferred: Patient Refused - per clinic note),09/11/2008 Seasonal Influenza, Quadriva lent, No Preserve, IM 07/30/2024,08/10/2016,08/01/2015 TDAP, Age 7 and older, IM (Adacel) [...] encounter Miscellaneous Notes * Telephone Encounter - Marie Charles PA-C - 08/12/2024 4:09 PM EDT I had asked on check out for this patient's plug machine operator to be contacted to see if she would be able to be cleared from a cardiology standpoint for a colonoscopy. I do not see where this has been done yet. She sees Dr. Mandujano through [facility]. Thank you. documented in this encounter Plan of Treatment Upcoming Encounters Date Type Department Care Team (Late st Contact Info) Description 11/14/2024 10:45 AM EST Office Visit Urology [facility] [address] [address] Leonidas Lindsay Jr., MD [address] [address] Health Maintenance Due Date Last Done Comments Cologuard 1994 Sigmoidoscopy 1994 Fecal Occult Blood Test 07/11/2014 07/11/20 13, 03/08/2012, 06/19/2008 Mammogram 11/11/2016 11/11/2015, 1206/2014, 10/09/2014, Additional history exists Diabetic Eye Exam [...] Additional history exists CKD PHOS USE SMARTSET 32587 09/15/202407/2023, 09/14/2023, 06/03/2021, Additional history exists COVID-19 Vaccine ( season) 2024 07/30/2024, 08/12/2022, 08/08/2021, Additional history exists CKD HGB USE SMARTSET 92938 10/29/202410/29, 10/29/2023, 09/16/2023, Additional history exists VITAMIN D LEVEL ONCE IN A LIFETIME-USE SMARTSET# 18079 Completed 05/24/2011, 10/14/2010, 12/08/2009 Pneumococcal Vaccine: 65+ [...] Power of Attor joseph? No Care Teams Glass Bulb Machine Adjuster Relationship Specialty Start Date End Date Rafael Mcdaniel MD [address] [facility] [place] [address] PCP - General Family Medicine 03/07/23 documented as of this encounter
--- OUTSIDE RECORDS SUMMARY | 2024-08-14 18:22 | External Medical Summary | Summary of Care ---
Author Name Unknown Organization [facility] Address [address] [place] [address] Phone [phone] Care Team Providers Care Stock Preparation Supervisor Name Role Phone Rafael Nolan MD Primary Care Provider [phone] Reason for Visit * Reason Comments NEW PATIENT Encounter Details Date Type Department Care Team (Late st Contact Info) Description 08/02/2024 11:00 AM EDT Office Visit Gastroenterology, [address] [phone] Marie Charles PA-C [address] [place] [id number] Change in bowel habits*; Abdominal pain, generalized; History of colonic polyps Allergies Active Allergy Reactions Criticality Noted Date [...] Edema face/lips/tongue High 04/29/2011 Other Reaction(s): Flushing Lynn Extract Hives 08/26/2021 Sulfamethoxazole High 09/03/2022 Other [...] Dispensed Refills Start Date End Date Status Peer5TOUCH ULTRA SYSTEM W/DEVICE KITIndications:DM type 2, goal A1c below 7 Use up to four times a day as directed 1 0 06/20/2009 Active ONETOUCH ULTRASOFT LANCETS MISCIndications:DM type 2, goal A1c [...] 11 10/28/2015 Active Blood Glucose Monitoring Suppl (ShoorK ULTRA SYSTEM) W/DEVICE KITIndications:DM type 2, goal A1c at or below 9.0 Use as directed 4 times a day as needed (Diabetes). Use up to four times a day as directed DX Type II Diabetes E11.9 1 Kit 0 10/28/2015 Active fluticasone (FLONASE) 50 MCG/ACT nasal spray Administer 2 Sprays into each nostril daily. 3 Bottle 3 06/07/2016 Active furosemide (LASIX) 20 MG TabletIndications: Chronic diastolic congestive heart failure (HCC) Take 1 [...] 1 hour prior to dental procedure Active Budesonide-Formote rol Fumarate 160-4.5 MCG/ACT Inhalation Aerosol (Symbicort) Inhale 2 Puffs by mouth 2 times a day as needed for Other (asthma symptoms (takes in June/July )). Active Vitamin D (Cholecalciferol) 50 MCG (2000 [...] Active Azelastine HCl 0.1 % Nasal Solution (Astelin)Indicatio ns:Chronic rhinitis Administer 1 [place] into nostril in the morning and 1 [place] before bedtime. 30 mL 12 03/20/2024 Active Cetirizine HCl 10 MG Oral Tablet (ZyrTEC) daily. 01/24/2024 Active Cholestyramine 4 GM/DOSE Oral Powder TAKE 4 [...] Take by mouth daily as needed. Active Calcium Carbonate 600 MG Oral Tablet Take 1 Tablet by mouth 2 times a day with morning and evening meals. Discontinue d(Medicatio n List Clean Up) Ozempic (0.25 or 0.5 MG/DOSE) 2 MG/1.5ML Solution Pen-injector (Semaglutide(0.25 or 0.5MG/DOS)) Inject under the skin once a week. Discontinue d(Medicatio n List Clean Up) Cyclobenzaprine HCl 5 MG Oral Tablet (Flexeril) Take 1 Tablet by mouth in the morning and 1 Tablet at noon and 1 Tablet before bedtime. 30 Tablet 10/29/2023 Discontinue d(Medicatio n List Clean Up) documented as of this encounter (statuses as [...] mRNA, LNP-s, No Pre serve, 2-Dose Series ([employer] [facility] [employer]) 08/08/2021,01/11/2021,12/14/2020 Covid-19, Mrna, Lnp-s, Pf, B ivalent, [...] on file documented as of this encounter Last Filed Vital Signs Vital Sign Reading Time Taken Comments Blood Pressure - - Pulse 71 08/02/2024 10:58 AM EDT Temperature 36.4 C (97.5 F) 08/02/2024 10:58 AM E DT Respiratory Rate 18 08/02/2024 10:58 AM EDT Oxygen Saturation - - Inhaled Oxygen Concentration - - Weight 81 kg (178 lb 8 oz) 08/02/2024 10:58 AM E DT Height 162.6 cm (5' 4") 08/02/2024 10:58 AM EDT Body Mass Index 30.64 08/02/2024 10:58 AM EDT documented in this encounter Functional Status Functional Status Response [...] No 09/14/2023 documented as of this encounter Progress Notes * Marie Charles PA-C - 08/12/2024 3:58 PM EDT PCP: PCP: RAFAEL NOLAN [address] [place], [place] [id number] [id number] CC: Diarrhea HPI: 73 year old female with a past medical history as below, presents with her today for evaluation of chronic diarrhea. Patient states that her symptoms started this past May after being given 2 different courses of antibiotics for a UTI a month or so prior. She reports diarrhea with bowel movements 5 to 6 times a day, urgency and fecal incontinence and anache in the right lower quadrant. There was no rectal bleeding. She was given colestipol, 2 tablets twice daily which did seem to help. This was changed to cholestyramine as she was having difficulty swallowing the pills. Since then her bowels have slowed, and are now moving approximately once daily with typically formed stool. She does state that if she eats salad, however, she does get some diarrhea. She has occasional right lower quadrant cramping with bowel movements and continues to deny any rectal bleeding. She reports heartburn intermittently and is taking [place] approximately once weekly for this.She denies any nausea, vomiting or dysphagia. Last colonoscopy 12/11/13 ([facility] - 1. sessile ascending colon polyp 2. Internal hemorrhoids Biopsy-tubular adenoma ROS: Constitutional: no weight loss, no weakness, and no fatigue Eyes: no worsening of vision and no eye pain, redness, discharge ENT: no hearing loss, no congestion, no runny nose, no sore throat Resp: no cough, no sputum, no wheezing, and no SOB Cardiac: no chest pain, no orthopnea, and no dyspnea on exertion Female : no dysuria and no incontinence Neuro: no memory loss and no weakness Heme: no fever, no chills, no sweats, and no bleeding/bruising Endo: no unplanned weight change, no excessive thirst, and no excessive urination Skin: no rash, no itching, and no new/changing skin lesions ALLERGIES: Review of patient's allergies indicates: Allergen Reactions Dulaglutide Other Reaction(s): Abdominal Pain Ibuprofen Other Reaction(s): Swelling of the Eye Iodinated Contrast Media Other Reaction(s): Redness of Skin Soy Allergy Edema face/lips/tongue Other Reaction(s): Flushing Sulfamethoxazole Other Reaction(s): "DEATHLY ILL" SEVERE N/V Tirzepatide Other Reaction(s): Swelling of Lip/Tongue/Throat Trimethoprim Other Reaction(s): "DEATHLY ILL" SEVERE N/V Bactrim Fever and Flushing Food (See Comments) Hives tomatoes Amiodarone Optic nerve toxicity Corticosteroids flushed/tachy w/ injected steroids in her spine Tolerates Prednisone Ibandronic Acid Other Reaction(s): GERD severe Lactose Intolerance Lansoprazole facial swelling, rash Latex Rash in mouth after dental exam using latex gloves Nickel Other Reaction(s): Rash Nsaids hives to aleve, able to take motrin Percocet [Oxycodone-Acetaminophen] Nausea/vomiting The patient says she can tolerate Vicodin Phenazopyridine Pyridium caused diaphoresis, tachycardia Proton Pump Inhibitors Prvacid Ragweed Cough Lynn Extract Hives Tramadol Ultram Vomiting Wound Dressing Adhesive Other (Please comment) Can't use bandaids/rios skin Metformin Other Reaction(s): Unknown Naproxen Other Reaction(s): Gastrointestinal Upset Oxycodone Other Reaction(s): Gastrointestinal Upset Tanzeum [Albiglutide] Rash Wheat Unknown Current Outpatient Medications Medication Sig Dispense Refill AZO-CRANBERRY 450 MG PO TABS one daily 30 Tab 5 fluticasone (FLONASE) 50 MCG/ACT nasal spray Administer 2 Sprays into each nostril daily. 3 Bottle 3 furosemide (LASIX) 20 MG Tablet Take 1 Tab by mouth daily. . 30 Tab 0 Basaglar KwikPen 100 UNIT/ML Subcutaneous Solution Pen-injector (Insulin Glargine) Inject 26 Units under the skin at bedtime. Uses 3 ml Omeprazole 40 MG Oral Capsule Delayed Release (PriLOSEC) Take 1 Capsule by mouth in the morning. Amoxicillin 500 MG Oral Tablet Take 4 Tablets by mouth once. 1 hour prior to dental procedure Budesonide-Formoterol Fumarate 160-4.5 MCG/ACT Inhalation Aerosol (Symbicort) Inhale 2 Puffs by mouth 2 times a day as needed for Other (asthma symptoms (takes in June/July)). Vitamin D (Cholecalciferol) 50 MCG (1999 UT) Oral Capsule Take 2,000 Units by mouth every morning. Potassium Chloride ER 10 MEQ Oral Capsule Extended Release Take 1 Capsule by mouth in the morning and 1 Capsule before bedtime. Rosuvastatin Calcium 10 MG Oral Tablet (Crestor) Take 1 Tablet by mouth once a day on Tuesday, Tuesday, and Tuesday only. Metoprolol Tartrate 50 MG Oral Tablet (Lopressor) Take 1 Tablet by mouth in the morning and 1 Tablet before bedtime. 60 Tablet 11 Azelastine HCl 0.1 % Nasal Solution (Astelin) Administer 1 [place] into nostril in the morning and 1 [place] before bedtime. 30 mL 12 Cetirizine HCl 10 MG Oral Tablet (ZyrTEC) daily. Cholestyramine 4 GM/DOSE Oral Powder TAKE 4 GRAMS BY MOUTH ONCE DAILY TAKE WITH A MEAL. AVOID OTHERMEDS WITHIN 1 HOUR BEFORE OR 4 TO 6 HOURS AFTER DOSE. Colestipol HCl 1 GM Oral Tablet (Colestid) TAKE TWO TABLETS BY MOUTH TWICE A DAY. SWALLOW WHOLE WITH ANY LIQUID. DO NOT CUT, CRUSH, OR CHEW. TAKE OTHER MEDS 1 HOUR BEFORE OR 4 HOURS A Jardiance 10 MG Oral Tablet 1 Tablet in the morning. Doxepin HCl 100 MG Oral Capsule (SINEquan) Fluticasone Furoate-Vilanterol 100-25 MCG/ACT Inhalation Aerosol Powder Breath Activated (BREO ellipta) hydrOXYzine HCl 25 MG Oral Tablet 3 times a day as needed. ShoorK ULTRA SYSTEM W/DEVICE KIT Use up to four times a day as directed 1 0 Disruptive By DesignUCH ULTRASOFT LANCETS MISC Use up to four times a day as directed 100 11 Glucose Blood (ShoorK ULTRA BLUE) STRP Use as directed 4 times a day as needed (Diabetes). Use upto four times a day as directed DX Type II Diabetes E11.9 100 Strip 11 Blood Glucose Monitoring Suppl (ShoorK ULTRA SYSTEM) W/DEVICE KIT Use as directed 4 times a day as needed (Diabetes). Use up to four times a day as directed DX Type II Diabetes E11.9 1 Kit 0 Triamcinolone Acetonide 0.1 % External Cream (Aristocort) Apply topically to affected area 2 times a day. Apply to chest and belly Vitamin C Oral Liquid Take by mouth. Polyethylene Glycol 3350 Powder Take by mouth daily as needed. Ondansetron 4 MG Oral Tablet Disintegrating (Zofran) Place 1 Tablet on tongue every 8 hours as needed for Nausea. dissolve on tongue. 30 Tablet 0 oxyCODONE HCl 5 MG Oral Tablet (Oxy IR) Take 1 Tablet by mouth every 4 hours as needed for Pain, Breakthrough for up to 6 doses. 6 Tablet 0 Naloxone HCl 4 MG/0.1ML Nasal Liquid (Narcan Nasal) Administer 1 spray into 1 nostril for suspectedopioid overdose. Seek immediate medical attention. [email or web address] 1 Each 3 No current facility-administered medications for this visit. Past Medical History: Diagnosis Date Allergy to other foods gluten, tomatoes (hives) etc- better on zyrtec used bolus prednisone in the past- none since Zyrtecbegun Angioedema Arthritis ASTHMA, COUGH VARIANT 05/14/2003 Back Pain Cardiac LV ejection fraction 30-35% 11/11/2014 CHF (congestive heart failure) ([facility]) 12/18/2014 DM type 2, not at goal ([facility]) 09/26/2008 DVT (deep venous thrombosis) ([facility]) 1988 GENERAL OSTEOARTHROSIS GERD (gastroesophageal reflux disease) History of DVT of lower extremity 07/11/2013 In her Left foot after injury to foot HTN, goal below 140/90 12/18/2014 Irritable bowel syndrome 10/11/2002 Migraine Mitral regurgitation Murmur 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[facility]) 2 separate episodes in [place] "virus hit heart" Myofascial pain Nephrolithiasis Non-toxic multinodular goiter 1995 Hx of bilateral thyroid nodules, bx: benign Non-toxic multinodular goiter Other specified disorder of sweat glands Episodic sweating; NOT thyroid related Posterior subcapsular polar senile cataract OU Preglaucoma Richard Tmax ;0.1 OU (03/11) Pure hypercholesterolemia shoulder tendonitis Past Surgical History: Procedure Laterality Date APPENDECTOMY W/OTHER PROCEDURE 07/08/1980 done w/ GB surg COLONOSCOPY 11/07/2013 Detection of Adenomatous polyp CORONARY ANGIOGRAPHY W/LEFT HEART CATH Right 12/11/2014 CORONARY ANGIOGRAPHY W/LEFT HEART CATH performed by Emily Hightower MD at [facility] DRAIN OVARIAN CYST(S);ABD 11/07/1983 R ovary removed for cyst INSERT OR REPLACE SUBCUTANEOUS DEFIBRILLATOR 06/2020 IR BIOPSY 04/30/2024 LAPAROSCOPY; ENTEROLYSIS 11/07/1999 REMOVAL OF KIDNEY STONE, UP TO 2CM REMOVAL OF OVARIAN CYST(S) 03/07/2004 Removal of L ovary for cyst REMOVAL OF OVARY(S) 11/07/1989 Left ovary supposed to be removed but wasn't REMOVE GALLBLADDER 07/08/1980 REMOVE GALLBLADDER REPAIR OF BLADDER NECK REVISION OF ANKLE JOINT 12/08/2012 Ankle Joint Arthroplasty REVISION OF FOOT FASCIA/MUSCLE 12/23/2011 plantar fasciotomy w inferior calcaneal heel spur L foot TOTAL HYSTERECTOMY 11/07/1976 UPPER ENDOSCOPY GI REFERRAL OP 05/21/2005 mild esophagitis, H. Pylori, no malignancy UPPER GI ENDOSCOPY/EXAM 09/26/2002 normal EGD Family History Problem Relation Name Age of Onset Hypertension Mother Heart Disorder Mother NE at 76; angina prior Diabetes Father Hypertension Father Lung Disorder Father Heart Disorder Father NE at 57 Stroke Father mult NE's; 1st @59 Cancer Father 75 Colon Thyroid Disorder Grandmother (Maternal) Large goiter; relatively young (40's) of hearet disease Heart Disorder Grandmother (Maternal) Heart Disorder Grandfather (Paternal) Other (Other) Grandfather (Paternal) blindness in 40's; unknown cause Heart Disorder Grandfather (Maternal) Heart Disorder Grandmother (Paternal) No Past Hx Other Pt. denies any family history of skin cancer or skin disease Diabetes Aunt (Unspecified) maternal aunt Diabetes Other Cousin and cousin's daughter Heart Disorder Sister Cancer Sister lung Cancer Sister SOCIAL HISTORY: Social History Tobacco Use Smoking status: Never Smokeless tobacco: Never Tobacco comments: no passive smoke exposures Substance Use Topics Alcohol use: No Vaping/E-Cigarette Use Vaping/E-Cigarette Use Never User Vaping/E-Cigarette Substances Vaping/E-Cigarette Devices PHYSICAL EXAM Pulse 71 | Temp 36.4 C (97.5 F) (Infrared ) | Resp 18 | Ht 1.626 m (5' 4") | Wt 81 kg (178 lb 8oz) | BMI 30.64 kg/m | BSA 1.91 m GENERAL: alert and no distress HEAD: Normocephalic, No masses, lesions or abnormalities EYES: conjunctiva are pink and non-injected, sclera clear NECK: supple LUNGS: clear to auscultation HEART: regular rate & rhythm ABDOMEN: abdomen soft, normal bowel sounds, no masses or organomegaly, and + mild epigastric/RLQ tenderness EXTREMITIES: no edema NEURO: alert & oriented x 3 with fluent speech, no focal motor/sensory deficits ASSESSMENT: ICD-10-CM 1. Change in bowel habits R19.4 2. Abdominal pain, generalized R10.84 3. History of colonic polyps Z86.010 PLAN: Recommended a colonoscopy, however patient states that she is unable to have a colonoscopy due to cardiac reasons. She sees a fitting room operator through [facility]-Dr. Mandujano. We will reach out to her fitting room operator to see if she can be cleared for a colonoscopy. In the interim she will continue cholestyramine as current and monitor her symptoms. Follow-up hereas needed. Marie Charles PA-C documented in this encounter Nursing Notes * Samia Bowen RN - 08/02/2024 11:10 AM EDT Chief Complaint Patient presents with NEW PATIENT Here with spouse. Has been having diarrhea for about 9 weeks. States she had been on antibiotics around late spring/early summer. Colestipol did help. Moving bowels once a day currently. No blood in stools. Had a colonoscopy at [facility] around 2018. PCP doesn't want patient to get colonoscopy with heart failure. documented in this encounter Plan of Treatment Upcoming Encounters Date Type Department Care Team (Late st Contact Info) Description 11/14/2024 10:45 AM EST Office Visit Urology Vu Elkins [address] [place] [id number] Leonidas Lindsay Jr., MD [address] [place] [address] Health Maintenance Due Date Last Done Comments [...] Additional history exists CKD PHOS USE SMARTSET 64310 09/15/202407/2023, 09/14/2023, 06/03/2021, Additional history exists COVID-19 Vaccine ( season) 2024 07/30/2024, 08/12/2022, 08/08/2021, Additional history exists CKD HGB USE SMARTSET 85797 10/29/202410/29, 10/29/2023, 09/16/2023, Additional history exists VITAMIN D LEVEL ONCE IN A LIFETIME-USE SMARTSET# [id number] Completed 05/24/2011, 10/14/2010, 12/08/2009 Pneumococcal Vaccine: 65+ [...] Not on filedocumented as of this encounter Visit Diagnoses Diagnosis Change in bowel habits- Primary Other symptoms involving digestive system Abdominal pain, generalized History of colonic polyps Personal history of colonic polyps documented in this encounter Advance Directives * Full Code [...] Power of Attor joseph? No Care Teams Stock Preparation Supervisor Relationship Specialty Start Date End Date Rafael Nolan MD [address] [facility] [place] [address] PCP - General Family Medicine 03/07/23 documented as of this encounter
[2024-08-14] MEDS: oxyCODONE HCL IR 5 MG TAB (IMMEDIATE RELEASE) PO PRN (20:14)
[2024-08-14] MEDS: INSULIN ASPART PER UNIT CHARGE SC SCH (20:42)
[2024-08-14] MEDS: LANTUS PER UNIT CHARGE SC SCH (20:42)
[2024-08-14] MEDS: nitrofurantoin macrocrystaL 50 MG CAP PO SCH (20:44)
[2024-08-14] MEDS: ASPIRIN 81 MG ECTAB PO SCH (20:44)
[2024-08-14] MEDS ORDERED: NON-FORMULARY MEDICATION (Insulin Glargine [Basaglar Kwikpen U-100 Insulin] 100 unit/mL (3 SQ SCH (21:00)
[2024-08-14] MEDS: FLUTICASONE PROPIONATE NA SPR 16 GM BTL SCH (21:01)
[2024-08-14] MEDS: METOPROLOL SUCC 50MG EXT REL TAB PO SCH (21:01)
[2024-08-15 06:28] LABS: Hematocrit (blood only) 33.3 % (37.0-47.0); Hemoglobin 11.2 g/dl (12.0-16.0); Mean Corpuscular Hemoglobin 28.4 pg (25.0-34.0); Mean Corpuscular Hgb Conc 33.6 g/dL (32.0-36.0); Mean Corpuscular Volume 84.3 fL (80.0-100.0); Platelet Count 228 K/uL (130-400); RDW Coefficient of Variation 12.7 % (11.5-14.5); RDW Standard Deviation 38.8 fL (36.4-46.3); Red Blood Count 3.95 M/uL (4.20-5.40); White Blood Count 9.64 K/ul (4.8-10.8)
[2024-08-15 07:11] LABS: BUN Creatinine Ratio 19.8 (10-20); Creatinine Clr Calc Pharmacy 58.9 ml/min; Potassium 4.2 mmol/L (3.5-5.1)
--- NOTE | 2024-08-15 07:34 | Orthopedic Progress Note ---
Date of Service August 15, 2024 Assessment & Plan (1) Ankle fracture, right: Present on Admission?: Yes Plan Patient is postoperative day #1 status post ORIF right ankle. She is doing well. No acute events overnight. Patient notes that her block is starting to wear off, but her pain is still controlled. Medicine was consulted yesterday and their recommendations are appreciated. Patient is pending physical therapy evaluation. Safe discharge plan will be established once they have a chance to see her. Nonweightbearing right lower extremity Keep leg clean and dry. Keep splint in place. Keep lower extremity elevated with heel floated Aspirin 81 mg p.o. twice daily for DVT prophylaxis Out of bed to chair for all meals Multimodal pain control avoiding nonsteroidal anti-inflammatory medications Carbohydrate controlled diet Vitamin D 56.2, continue at home therapy Patient will follow-up with me in approximately 2 weeks for wound evaluation and potential suture removal. Admission and Anticipated Discharge Date Admission Date: August 14, 2024 Subjective Postoperative day #1 status post ORIF right lateral malleolus patient doing well. No acute events overnight. Medicine consulted. Pending physical therapy. Pain well-controlled. Wiggles all toes. Sensation is returning after block Review of Systems Review of Systems: Negative unless otherwise stated above Physical Exam Physical Exam: Splint is clean, dry, intact. Leg is elevated on a pillow. Active EHL/FHL function noted. Sensation returning in SPN, DPN, yet diminished secondary to block. Results & Data Vital Signs (Past 12 Hours) Vital Signs Temp Pulse Resp BP Pulse Ox O2 Del Method 08/15/24 07:01 36.7 C 60 16 147/63 H 94 Room Air 08/15/24 03:28 36.8 C 72 18 127/67 96 Room Air 08/14/24 22:36 37.0 C 63 18 147/75 H 96 Room Air Diagnostic Findings Postoperative x-rays reviewed demonstrate stable fixation of lateral malleolus and restored ankle mortise.
[2024-08-15] MEDS ORDERED: EMPAGLIFLOZIN 10 MG TAB PO SCH (09:00)
[2024-08-15] MEDS: POTASSIUM CHLORIDE 10 MEQ TABCR PO SCH (09:06)
[2024-08-15] MEDS: FUROSEMIDE 20 MG TAB PO SCH (09:07)
[2024-08-15] MEDS: PANTOprazole 40 MG TAB PO SCH (09:07)
[2024-08-15] MEDS: RANOLAZINE 500 MG ER TAB PO SCH (09:08)
[2024-08-15] MEDS: ROSUVASTATIN CALCIUM 10 MG TAB PO SCH (09:08)
--- NOTE | 2024-08-15 10:00 | Pharmacy Report ---
Pharmacy Glycemic Short Note 2 - Date of Service August 15, 2024 - Glycemic Short BSG Results (Last 24 hours): 08/14/24 08/14/24 08/14/24 11:06 15:06 16:36 Glucose POC Glucose 169 H 149 H 188 H 08/14/24 08/14/24 08/14/24 20:20 20:22 22:25 Glucose POC Glucose 365 H* 352 H* 258 H 08/15/24 08/15/24 05:52 07:03 Glucose 189 H POC Glucose 187 H OUTPATIENT ANTIDIABETIC REGIMEN: * Jardiance 10 mg PO daily * Lantus 26 units SC HS HbA1c: 8.4% on 07/30/24 ASSESSMENT: * 73 y/o F admitted for right ankle fracture, had repair surgery yesterday. She has history of Type 2 diabetes managed on Jardiance and basal insulin at home. * Patient received a dose of IV Dexamethasone 8 mg in OR yesterday which caused her blood sugars to trend up last evening. * Basal insulin 0.4 units/kg was given x 1 around dinner time then slightly reduced home basal dose given at bedtime. * Novolog was started yesterday based on stress of 3 parameters. Tightened further this morning. * Fasting BSG today was 187 mg/dl. Pre-lunch BSG trended down to 125 mg/dl. Loosened Novolog parameters with lunch. * Basal insulin continued as 20 units HS. May need increased gradually. PLAN FOR INPATIENT GLYCEMIC CONTROL: * Hold outpatient oral diabetes medications * Basal insulin * Lantus 50 units total received yesterday x1 * Lantus 20 units SC HS * Bolus insulin * NovoLog per scale ACHS or Q6hrs while NPO * Goal Range: Low 110 mg/dL - High 140 mg/dL * Correction Factor: 20 mg/dL/unit * Nutritional / Prandial insulin per carb ratio of 1 unit per 7 grams CHO c onsumed
--- NOTE | 2024-08-15 11:10 | Hospitalist Progress Note ---
Date of Service August 15, 2024 Assessment & Plan (1) Ankle fracture, right: Plan: s/p right ankle ORIF 08/14 due to Hadley B distal fibula fracture patient rolled her ankle 08/02 resulting in a fracture - Pre-op EKG showed ventricular paced rhythm, CBC showed no sign of anemia, BMP WNL - hemodynamically stable postoperatively; 2 L Nasal cannula -> room air - pain management, diet, and VTE ppx per orthopedics team - Vit D level WNL, continue home supplement - Am CBC and BMP WNL, mild decrease in Hgb likely secondary to hemodilution with IV fluids and acute blood loss anemia post-operatively - continue aspirin BID for DVT ppx - PT/OT consulted - recommending rehab, referral to [facility] (2) UTI (urinary tract infection): Plan: Patient with UTI prior to surgery and started course of Macrobid with PCP - Patient with history of kidney stones; stated she had flank pain, dysuria, an ashleigh colored urine over the weekend - symptoms since resolved with start of antibiotic; clear urine since Tuesday - only took 1 day of prescription prior to admission - UTI vs passed stone - UA 08/10 suspicious for UTI with WBC and RBC present; although no culture completed - a febrile, no leukocytosis - urine culture pending - continue with Macrobid x 6 days (to be completed 08/20) (3) Heart failure with reduced ejection fraction: Plan: History of HFrEF - Dry weight ~ 78.47 kg - Last echocardiogram 09/2023 showed Ef 45-49%, mild hypokinesis, and mild mitral, tricuspid, and pulmonary regurg. - Heart healthy, low-sodium, fluid restricted diet - continue home diuresis with 20 mg Lasix QAM - 1L IV fluids given post-operatively; discontinued with HF history - Strict I&O monitoring and daily weights - no signs of acute exacerbation at this time (4) Hypertension: Plan: Stable, mildly elevated - likely elevated secondary to medication hold pre-operatively, IV fluids post- operatively, and pain - continue Metoprolol and Lasix (5) DM type 2 (diabetes mellitus, type 2): Plan: History of T2Dm managed with Jardiance and Insulin at home - 26 Units basal insulin HS at home, just started Jardiance 2 months ago - continue to hold Jardiance in hospital setting - Most recent A1C 8.4 - SSI with target BSG range 110-140mg/dL, CF 20, carb ratio 7 - T2DM diet - BSG ACHS if eating - continue home basal dose - pharmacy following for post- operative glycemic management (6) Hyperlipidemia: Plan: - most recent lipid panel showed elevated triglycerides, LDL and HDL WNL - continue home statin (MWF) and aspirin (7) GERD (gastroesophageal reflux disease): Plan: - home omeprazole switched to pantoprazole on admission - continue Zofran prn, recent EKG showed Qtc 473 (8) Asthma: Plan: Follows with him manager in out pt setting; only uses Inhaler during summer season with good asthma control - on 2 L O2 via nasal cannula on exam; [facility] - non-hypoxic post-operatively - continue home Breo Ellipta prn and Flonase (9) Biventricular ICD (implantable cardioverter-defibrillator) in place: Plan: History of nonischemic cardiomyopathy, frequent PVC's, and LBBB - s/p biventricular ICD - continue home Ranexa, Lasix, and Metoprolol Plan VTE ppx: SCDs Diet: T2DM, heart healthy, sodium restriction, fluid restriction 2000 mL Code status: Full Dispo: Med/surg PT recommending rehab, referral to [facility]. Admission and Anticipated Discharge Date Admission Date: August 14, 2024 Supervising Physician Co-Signing Physician Notes PA Supervision Note: I personally saw and examined the patient. I verified all santana points and agree with ABY Barrera with the following exceptions and/or additions: S-Pt having some pain in ankle after nerve block wore off. No diarrhea, no CP or SOB. O- Vitals reviewed Gen: [AAOx3, NAD] HEENT: [anicteric sclerae, EOMI] CV: [RRR no mgr nl S1S2] Pulm: [CTAB no wcr] Ext: [Right leg and foot/ankle in splint and ELIJAH wrap, can move toes and sensation intact in toes] CBC, BMP reviewed A/P-73 yo female here with ORIF right ankle, with a h/o HFrEF, nonischemic CM, pacer/ICD, LBBB, DMII Stable, no signs of CHF exacerbation Will continue to follow Subjective Patient doing well overnight with no acute events. She stated that her pain is well managed, she denies numbness in her right foot. She has been OOB with pt and to use bathroom. She has not had a bowel movement since surgery. She stated that she uses a cane a baseline and she fell trying to get up without it resulting in her ankle fracture. She denies dysuria and hematuria. Patient denies fever, dizziness, lightheadedness, dyspnea, chest pain, abdominal pain, nausea, vomiting, edema, numbness, tingling. Review of Systems Review of Systems: See HPI Physical Exam Physical Exam: The patient is awake, alert and oriented 3, well developed and well nourished, normocephalic and atraumatic, in no acute distress. Non-toxic appearing. HEENT- EOMI, mucous membranes moist. Hearing grossly intact. Heart-normal S1 and S2. No murmurs, rubs or gallops. Lungs-clear bilaterally, no respiratory distress, no accessory muscle use. Abdomen-normal bowel sounds and soft. No ascites noted. Non-tender. Extremities- no clubbing, cyanosis, or edema. Right foot elevated with surgical bandages in place. Rheumatologic-normal range of motion. Psychiatric-normal affect. Results & Data Results & Data Vital Signs (Past 12 Hours) Vital Signs Temp Pulse Resp BP Pulse Ox O2 Del Method 08/15/24 07:01 36.7 C 60 16 147/63 H 94 Room Air 08/15/24 03:28 36.8 C 72 18 127/67 96 Room Air Laboratory Results reviewed CBC and BMP PG Care Time/CCT Total # of Minutes Spent Total Time Spent with Patient: Total time spent is greater than 50% in coordination of care (as documented) at patient's floor/unit and/or counseling patient: Coding Level of Care Code None Diagnoses Ankle fracture, right S82.891A UTI (urinary tract infection) N39.0 Heart failure with reduced ejection fraction I50.20 Hypertension I10 Type 2 diabetes mellitus without complication, without long-term current use of insulin E11.9 Diabetes mellitus complication status: without complication Diabetes mellitus [employer] insulin use: without nursing home use Pure hypercholesterolemia E78.00 Hyperlipidemia type: pure hypercholesterolemia GERD (gastroesophageal reflux disease) K21.9 Asthma J45.909 Biventricular ICD (implantable cardioverter-defibrillator) in place Z95.810 (5) DM type 2 (diabetes mellitus, type 2) Diabetes mellitus complication status: without complication Diabetes mellitus nursing home insulin use: without [employer] use Qualified Code(s): E11.9 - Type 2 diabetes mellitus without complications (6) Hyperlipidemia Hyperlipidemia type: pure hypercholesterolemia Qualified Code(s): E78.00 - Pure hypercholesterolemia, unspecified
--- NOTE | 2024-08-15 12:57 | Billing Data ---
Date of Service August 14, 2024 Coding Level of Care Code 08115 IN/OBS CONSULT LVL 4,60M
--- NOTE | 2024-08-15 19:35 | Billing Data ---
Date of Service August 15, 2024 Coding Level of Care Code 42030 SUB INP/OBS CARE
[2024-08-15] MEDS: LANTUS PER UNIT CHARGE SC SCH (20:27)
--- NOTE | 2024-08-16 07:14 | Orthopedic Progress Note ---
Date of Service August 16, 2024 Assessment & Plan (1) Ankle fracture, right: Plan Patient is postoperative day #2 status post ORIF right ankle. She is doing well. No acute events overnight. Patient notes that her block has worn off, but her pain is still controlled. Medicine was consulted and their recommendations are appreciated. Patient was seen by physical therapy and plan for discharge is acute inpatient rehab. She is pending placement. Nonweightbearing right lower extremity Keep leg clean and dry. Keep splint in place. Keep lower extremity elevated with heel floated Aspirin 81 mg p.o. twice daily for DVT prophylaxis Out of bed to chair for all meals Multimodal pain control avoiding nonsteroidal anti-inflammatory medications Carbohydrate controlled diet Vitamin D 56.2, continue at home therapy Patient will follow-up with me in approximately 2 weeks for wound evaluation and potential suture removal. Admission and Anticipated Discharge Date Admission Date: August 15, 2024 Subjective Patient doing well postoperative day #2 status post open reduction internal fixation right distal fibula. Pain is well-controlled. No acute events overnight. Review of Systems Review of Systems: Negative unless otherwise stated above Physical Exam Physical Exam: Splint is clean, dry, intact. Leg is elevated on a pillow. Active EHL/FHL function noted. Sensation intact SPN, DPN Results & Data Vital Signs (Past 12 Hours) Vital Signs Temp Pulse Resp BP Pulse Ox O2 Del Method 08/15/24 19:32 36.6 C 64 16 144/79 H 96 Room Air
[2024-08-16 07:16] VITALS: PULSE 62; TEMP 97.5
[2024-08-16] MEDS: ONDANSETRON 4 MG OD TAB PO PRN (09:16)
--- NOTE | 2024-08-16 09:35 | Hospitalist Progress Note ---
Date of Service August 16, 2024 Assessment & Plan (1) Ankle fracture, right: Plan: s/p right ankle ORIF 08/14 due to Hadley B distal fibula fracture patient rolled her ankle 08/02 resulting in a fracture - Pre-op EKG showed ventricular paced rhythm, CBC showed no sign of anemia, BMP WNL - hemodynamically stable postoperatively; 2 L Nasal cannula -> room air - pain management, diet, and VTE ppx per orthopedics team - Vit D level WNL, continue home supplement - Am CBC and BMP WNL post-op, mild decrease in Hgb likely secondary to hemodilution with IV fluids and acute blood loss anemia post-operatively - continue aspirin BID for DVT ppx - PT/OT consulted - recommending rehab, to discharge to [facility] 08/16 (2) UTI (urinary tract infection): Plan: Patient with UTI prior to surgery and started course of Macrobid with PCP - Patient with history of kidney stones; stated she had flank pain, dysuria, an ashleigh colored urine over the weekend - symptoms since resolved with start of antibiotic; clear urine since Tuesday - only took 1 day of prescription prior to admission - UTI vs passed stone - UA 08/10 suspicious for UTI with WBC and RBC present; although no culture completed - a febrile, no leukocytosis - urine culture pending on discharge; prelim showed no growth likely due to starting antibiotic prior to culture - continue with Macrobid x 7 days (to be completed 08/20) (3) Heart failure with reduced ejection fraction: Plan: History of HFrEF - Dry weight ~ 78.47 kg - Last echocardiogram 09/2023 showed Ef 45-49%, mild hypokinesis, and mild mitral, tricuspid, and pulmonary regurg. - Heart healthy, low-sodium, fluid restricted diet - continue home diuresis with 20 mg Lasix QAM - 1L IV fluids given post-operatively; discontinued with HF history - Strict I&O monitoring and daily weights - no signs of acute exacerbation at this time (4) DM type 2 (diabetes mellitus, type 2): Plan: History of T2Dm managed with Jardiance and Insulin at home - 26 Units basal insulin HS at home, just started Jardiance 2 months ago - continue to hold Jardiance in hospital setting - Most recent A1C 8.4 - SSI with target BSG range 110-140mg/dL, CF 20, carb ratio 7 - T2DM diet - BSG ACHS if eating - pharmacy following for post- operative glycemic management - Basal insulin decreased from 26 to 20 during hospitalization due to better diet control - recommend to continue this regimen at rehab (5) Hyperlipidemia: Plan: - most recent lipid panel showed elevated triglycerides, LDL and HDL WNL - continue home statin (MWF) and aspirin (6) Hypertension: Plan: Stable, mildly elevated - likely elevated secondary to medication hold pre-operatively, IV fluids post- operatively, and pain - continue Metoprolol and Lasix (7) Asthma: Plan: 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; only uses Inhaler during summer season with good asthma control - on 2 L O2 via nasal cannula on exam; does not use oxygen at [facility] - non-hypoxic post-operatively - continue home Breo Ellipta prn and Flonase (8) GERD (gastroesophageal reflux disease): Plan: - home omeprazole switched to pantoprazole on admission - continue Zofran prn, recent EKG showed Qtc 473 (9) Biventricular ICD (implantable cardioverter-defibrillator) in place: Plan: History of nonischemic cardiomyopathy, frequent PVC's, and LBBB - s/p biventricular ICD - continue home Ranexa, Lasix, and Metoprolol Plan VTE ppx: SCDs Diet: T2DM, heart healthy, sodium restriction, fluid restriction 2000 mL Code status: Full Dispo: discharge to [facility]. Medically stable for discharge from hospital medicine standpoint. Macrobid and lower dose Insulin sent to pharmacy at [place]. Admission and Anticipated Discharge Date Admission Date: August 15, 2024 Supervising Physician Co-Signing Physician Notes ABY Supervision Note: I personally saw and examined the patient. I verified all santana points and agree with ABY Barrera with the following exceptions and/or additions: S-Pt had some nausea this AM and vomited which typically happens if she takes oxycodone on an empty stomach, feeling a little better now after taking zofran. Pain is fairly well controlled in ankle. Denies SOB, CP. Has not yet moved her bowels but took miralax this AM O- Vitals reviewed Gen: [AAOx3, NAD] HEENT: [anicteric sclerae, EOMI] CV: [RRR no mgr nl S1S2] Pulm: [CTAB no wcr] Ext: [Right leg and foot/ankle in splint and ELIJAH wrap, can move toes and sensation intact in toes] CBC, BMP reviewed A/P-73 yo female here with ORIF right ankle, with a h/o HFrEF, nonischemic CM, pacer/ICD, LBBB, DMII Stable, no signs of CHF exacerbation Zofran prn nausea, oxycodone to be taken on full stomach Stable for dc to SNF today Subjective Patient seen at bedside and doing well. She did have an episode of nausea and vomiting this morning with breakfast, she believes to be due to taking her morning medications on an empty stomach. She has mild foot pain. She has been OOB. She has not had a bowel movement since surgery. Patient denies dizziness, lightheadedness, dyspnea, chest pain, abdominal pain, current nausea, diarrhea, dysuria, hematuria, edema, numbness, tingling. Review of Systems Review of Systems: See HPI Physical Exam Physical Exam: The patient is awake, alert and oriented 3, well developed and well nourished, normocephalic and atraumatic, in no acute distress. Non-toxic appearing. HEENT- EOMI, mucous membranes moist. Hearing grossly intact. Heart-normal S1 and S2. No murmurs, rubs or gallops. Lungs-clear bilaterally, no respiratory distress, no accessory muscle use. Abdomen-normal bowel sounds and soft. No ascites noted. Non-tender. Extremities- no clubbing, cyanosis, or edema. Right foot elevated with surgical bandages in place. Rheumatologic-normal range of motion. Psychiatric-normal affect. Results & Data Results & Data Vital Signs (Past 12 Hours) Vital Signs Temp Pulse Resp BP Pulse Ox O2 Del Method 08/16/24 07:16 36.4 C L 62 16 178/76 H 94 Room Air Laboratory Results reviewed glucose PG Care Time/CCT Total # of Minutes Spent Total Time Spent with Patient: Total time spent is greater than 50% in coordination of care (as documented) at patient's floor/unit and/or counseling patient: Coding Level of Care Code None Diagnoses Ankle fracture, right S82.891A UTI (urinary tract infection) N39.0 Heart failure with reduced ejection fraction I50.20 Type 2 diabetes mellitus without complication, without long-term current use of insulin E11.9 Diabetes mellitus complication status: without complication Diabetes mellitus shelter insulin use: without shelter use Pure hypercholesterolemia E78.00 Hyperlipidemia type: pure hypercholesterolemia Hypertension I10 Asthma J45.909 GERD (gastroesophageal reflux disease) K21.9 Biventricular ICD (implantable cardioverter-defibrillator) in place Z95.810 (4) DM type 2 (diabetes mellitus, type 2) Diabetes mellitus complication status: without complication Diabetes mellitus long term care pharmacist insulin use: without shelter use Qualified Code(s): E11.9 - Type 2 diabetes mellitus without complications (5) Hyperlipidemia Hyperlipidemia type: pure hypercholesterolemia Qualified Code(s): E78.00 - Pure hypercholesterolemia, unspecified
--- NOTE | 2024-08-16 10:09 | Discharge Summary ---
Date of Service August 16, 2024 Admission HPI Per Admitting Provider Patient presented to the hospital for planned operative intervention for right ankle fracture. Surgery is on 08/14/2024. Patient tolerated procedure well and was admitted for observation overnight. The next morning, after seeing physical therapy, she was deemed most appropriate for [facility] facility. She was then admitted while placement occurred. She was accepted at [facility] and was discharged to SNF on postoperative day #2. Principal Diagnosis Right lateral malleolus fracture status post ORIF 08/14/2024 Discharge Exam Right lower extremity splint clean dry and intact. Patient activates EHL/FHL. Sensation tact light touch DPN, SPN. Discharge Data Allergies Allergy/AdvReac Type Severity Reaction Status Date / Time amiodarone Allergy Severe vision loss Verified 08/14/24 11:15 tirzepatide [From Mounjaro] Allergy Severe Swelling Verified 08/14/24 11:15 of Lip/Tongue/Throat tomato Allergy Severe severe lip Verified 08/14/24 11:15 swelling and ucers in mouth Corticosteroids Allergy Intermediate Redness of Verified 08/14/24 11:15 (Glucocorticoids) Skin dulaglutide [From Trulicity] Allergy Intermediate Abdominal Verified 08/14/24 11:15 Pain ibuprofen [From Nuprin] Allergy Intermediate Swelling Verified 08/14/24 11:15 of the Eye Iodinated Contrast Media Allergy Intermediate Redness of Verified 08/14/24 11:15 Skin lansoprazole [From Prevacid] Allergy Intermediate Hives Verified 08/14/24 11:15 latex Allergy Intermediate Hives Verified 08/14/24 11:15 Proton Pump Inhibitors Allergy Intermediate Redness of Verified 08/14/24 11:15 Skin ragweed pollen Allergy Intermediate Congested Verified 08/14/24 11:15 soy Allergy Intermediate Flushing Verified 08/14/24 11:15 strawberry Allergy Intermediate Hives Verified 08/14/24 11:15 vaccine adjuvant system, Allergy Intermediate swelling Verified 08/14/24 11:15 [id number] liposomal of arm [From Shingrix (PF)] varicella-zoster virus Allergy Intermediate swelling Verified 08/14/24 11:15 glycoprotein E, recombinant of arm [From Shingrix (PF)] wheat Allergy Intermediate abd pain, Verified 08/14/24 11:15 diarrhea albiglutide [From Tanzeum] Allergy Mild Unknown Verified 08/14/24 11:15 metformin Allergy Mild Unknown Verified 08/14/24 11:15 nickel Allergy Mild Rash Verified 08/14/24 11:15 phenazopyridine Allergy Unknown Unknown Verified 08/14/24 11:15 adhesive tape AdvReac Intermediate severe Verified 08/14/24 11:16 redness to skin, irritation Bactrim AdvReac Intermediate "DEATHLY Verified 02/22/18 13:08 ILL" SEVERE N/V ibandronate sodium AdvReac Intermediate GERD severe Verified 08/14/24 11:15 NSAIDS (Non-Steroidal AdvReac Intermediate Gastrointestinal Verified 08/14/24 11:15 Anti-Inflamma Upset sulfamethoxazole AdvReac Intermediate "DEATHLY Verified 08/14/24 11:15 ILL" SEVERE N/V trimethoprim AdvReac Intermediate "DEATHLY Verified 08/14/24 11:15 ILL" SEVERE N/V naproxen [From Aleve] AdvReac Mild Gastrointestinal Verified 08/14/24 11:15 Upset oxycodone [From Percocet] AdvReac Mild Gastrointestinal Verified 08/14/24 11:15 Upset tramadol [From Ultram] AdvReac Mild Gastrointestinal Verified 08/14/24 11:15 Upset lactose AdvReac Unknown Diarrhea Verified 08/15/24 16:51 Biphosphonate AdvReac Mild Severe GI Uncoded 08/14/24 11:15 upset Consultations 08/14/24 15:47 Consult Hospitalist Routine Procedures Performed Operation Date: 08/14/24 12:15 Actual Procedures p Right Ankle Fracture Distal Fibula Open Reduction Internal Fixation(Right) - Tejinder Fuentes DO Ordered Studies 08/14/24 05:00 US - OR guided needle placemen Routine 08/14/24 12:15 FL ankle LT min 3V RTN Routine Hospital Course (1) Ankle fracture, right: Plan Patient presented to the hospital for planned operative intervention for right ankle fracture. Surgery is on 08/14/2024. Patient tolerated procedure well and was admitted for observation overnight. The next morning, after seeing physical therapy, she was deemed most appropriate for [facility] facility. She was then admitted while placement occurred. She was accepted at [facility] and was discharged to SNF on postoperative day #2. Patient will follow-up with myself in 2 weeks. She should remain nonweightbearing on the right lower extremity. She should keep her leg elevated with the heel floated at all times while lying in bed. She should be out of bed to chair for all meals. She will take aspirin 81 mg p.o. twice daily for DVT prophylaxis. Total Time Total Time Spent Total Time Spent (In Minutes): 20 Total Time Includes: Discharge Planning and Medication Reconciliation Discharge Plan Discharge Items Patient Disposition: Transfer [facility] Reason For Visit: Right Ankle Closed Fracture, Inital Encounter Discharge Diagnosis: Right ankle fracture Activity: Per Instructions section Activity Comment: Nonweightbearing Right leg Bathing: Keep incision dry Non-emergency contact: Primary Care Provider and Surgeon Call non-emergency contact if: you have any medication questions and your temperature is above 101.5 Follow-up/Referrals: Rafael Mcdaniel MD [Primary Care Provider] - Diet: Carb Consistent or DM2 Addtl Attending Provider Instructions: keep limb elevated to help control swelling. be sure to "float your heel" so the heel of your splint is not touching anything take aspirin 81mg PO BID for DVT prophylaxis follow up with your surgeon in 2 weeks you have been prescribed oxycodone for pain control, take this for severe pain. you may take tylenol, but please avoid NSAIDs. Addtl Licensed Optician Provider Instructions: You are to continue taking Macrobid for your UTI, you have 8 pills left (4 days). Your urine culture here showed no growth after 24 hours likely due to starting the antibiotic prior to the culture. The final result is still pending on discharge. You basal insulin was decreased from 26 units to 20 units during your hospital stay with good glucose control. I recommend you continue the lower dose at [facility]. Pending Studies at Discharge: Yes Studies:: Urine culture, prelim showed no growth Stand-Alone Forms: My [facility] Skilled Items Patient informed of condition?: Yes DNR: No Discharge Level of Care: Skilled Communicable Disease: No Discharge Prognosis: Stable Lines: None Urinary Catheter: No Medications and DC Order Prescriptions: New acetaminophen 325 mg Tablet 650 mg PO Q6H 30 Days Qty: 240 0RF aspirin 81 mg Tablet,Delayed Release (Dr/Ec) 81 mg PO BID 45 Days Qty: 90 0RF oxycodone 5 mg Tablet 5 mg PO Q6 PRN (Reason: pain) 5 Days Qty: 20 0RF Continued (DME) blood-glucose meter [OneTouch Ultra2 Meter] Misc See Rx Instructions .ROUTE .MEDSUPPLY Qty: 1 0RF Rx Instructions: Test 3-4 times daily E11.9 (DME) blood sugar diagnostic [OneTouch Ultra Blue Test Strip] Strip See Rx Instructions .ROUTE .MEDSUPPLY Qty: 100 1RF Rx Instructions: Test 3-4 times daily E11.9 (DME) lancets [FreeStyle Lancets] 28 gauge misc See Rx Instructions .ROUTE .MEDSUPPLY Qty: 100 2RF Rx Instructions: Test 3-4 times daily as directed E11.9 amoxicillin 500 mg tablet 2,000 mg PO ONCE Qty: 12 3RF Rx Instructions: 4 po 1 hr prior to dental appointment ranolazine 500 mg tablet extended release 12 hr See Rx Instructions PO BID Qty: 270 3RF Rx Instructions: Take 2 tablets in the morning and 1 tablet in the evening orally metoprolol succinate 50 mg tablet extended release 24 hr 50 mg PO BID Qty: 180 3RF (DME) pen needle, diabetic [BD Ultra-Fine Vicky Pen Needle] 32 gauge x 5/32" needle See Rx Instructions .ROUTE .MEDSUPPLY Qty: 100 3RF Rx Instructions: As directed rosuvastatin [Crestor] 10 mg tablet 10 mg PO .Mon, Wed and Fri Qty: 45 3RF (DME) FreeStyle Lite Strips Strip See Rx Instructions .ROUTE .MEDSUPPLY Qty: 100 2RF Rx Instructions: As directed 3-4x daily E11.9 Jardiance 10 mg tablet 10 mg PO DAILY Qty: 30 2RF Patient Comments: has not yet started holding until after dos 08/10/24 naloxone 4 mg/actuation spray,non-aerosol 4 mg intranasal Q3M PRN (Reason: opioid overdose) Qty: 2 0RF Rx Instructions: spray 1 dose into ONE nostril; alternate nostrils w each dose until help arrives [facility] ER 08/02/24 ondansetron 4 mg tablet,disintegrating 4 mg PO Q8H PRN (Reason: nausea and vomiting) Qty: 30 0RF Rx Instructions: [facility] ER 08/02/24 triamcinolone acetonide 0.1 % cream 1 applic topical BID PRN (Reason: Rash) cranberry 500 mg capsule 500 mg PO QAM Rx Instructions: administer with meals potassium chloride 10 mEq capsule, extended release 10 meq PO QAM hydroxyzine HCl 25 mg tablet 25 mg PO HS PRN (Reason: itching) Qty: 30 5RF mometasone [Nasonex 24hr Allergy] 50 mcg/actuation spray,non-aerosol 2 spray intranasal HS Qty: 17 2RF Rx Instructions: administer into each nostril tamsulosin 0.4 mg capsule 0.4 mg PO HS PRN (Reason: kidney stone) Qty: 10 0RF B-complex with vitamin C Capsule 1 cap PO DAILY Qty: 90 3RF vitamin d with K2 See Rx Instructions PO DAILY Rx Instructions: 6 drops orally daily; cetirizine [Zyrtec] 10 mg tablet 10 mg PO QAM omeprazole 40 mg capsule,delayed release(DR/EC) 40 mg PO QAM furosemide 20 mg tablet 20 mg PO QAM Rx Instructions: Take 1 tab daily. Can take extra 20 mg daily PRN for weight gain, edema, or shortness of breath cholestyramine (with sugar) [Questran] 4 gram powder 4 g PO BID Rx Instructions: administer w/meal; avoid other meds within 1hr before or 4-6hr after dose Milk or other liquid fluticasone furoate-vilanterol [Breo Ellipta] 100-25 mcg/dose blister with device 1 inh inhalation DAILY PRN (Reason: Congestion) nitrofurantoin macrocrystal [Macrodantin] 100 mg capsule 100 mg PO BID 4 Days Qty: 8 0RF Rx Instructions: must administer with a meal/food Changed insulin glargine 100 unit/mL (3 mL) insulin pen See Rx Instructions subcut HS Qty: 4 5RF Rx Instructions: 20 u subcut at bedtime Discontinued aspirin [Aspir-81] 81 mg Tablet,Delayed Release (Dr/Ec) 162 mg PO QAM Discharge Orders: Discharge Order (Routine); Ordered 08/16/24 Ordered By: Tejinder Castro/Other Patient Handouts: Ankle Fracture ORIF Admission Data Admit Date/Time: 08/15/24 15:32 Attending Provider: Tejinder Fuentes Admit Provider: Tejinder Fuentes Primary Care Provider: Rafael Mcdaniel Other Providers: Samia Alvarez; Clayton Henry Other Interventions: Discharge Summary Assessment (RN) Last Done: 08/16/24 14:22
[2024-08-16] MEDS: POLYETHYLENE (MIRALAX) 17 GM PACK PO ONE (10:34)
--- NOTE | 2024-08-16 11:46 | Billing Data ---
Date of Service August 16, 2024 Coding Level of Care Code 23895 SUB INP/OBS CARE
[2024-08-16 14:10] VITALS: BP 147/78; RESP 17; O2SAT 93
[2024-08-16] MEDS ORDERED: LANTUS PER UNIT CHARGE SC SCH (21:00)
== END 2024-08-16 15:50 | DRG 493 ==
LOC: 3W 10:35 → ASU 10:35
DX: Z91.041 Radiographic dye allergy status; J45.909 Unspecified asthma, uncomplicated; N39.0 Urinary tract infection, site not specified; Z88.6 Allergy status to analgesic agent; Z88.8 Allergy status to other drugs, medicaments and biological substances; I50.20 Unspecified systolic (congestive) heart failure; Z79.82 Long term (current) use of aspirin; D62 Acute posthemorrhagic anemia; I44.7 Left bundle-branch block, unspecified; Z88.5 Allergy status to narcotic agent; Z79.84 Long term (current) use of oral hypoglycemic drugs; S82.61XA Displaced fracture of lateral malleolus of right fibula, initial encounter for closed fracture; Z95.810 Presence of automatic (implantable) cardiac defibrillator; W01.0XXA Fall on same level from slipping, tripping and stumbling without subsequent striking against object, initial encounter; Z68.31 Body mass index [BMI] 31.0-31.9, adult; Z87.442 Personal history of urinary calculi; I11.0 Hypertensive heart disease with heart failure; Y92.018 Other place in single-family (private) house as the place of occurrence of the external cause; Z88.7 Allergy status to serum and vaccine; Z88.2 Allergy status to sulfonamides; I25.5 Ischemic cardiomyopathy; E11.40 Type 2 diabetes mellitus with diabetic neuropathy, unspecified; K21.9 Gastro-esophageal reflux disease without esophagitis; E78.5 Hyperlipidemia, unspecified